=== PATIENT | female | born 1940 | race Caucasian/White ===

== ENCOUNTER 2017-04-28 13:00 | Inpatient (IN) | payer OTHER ==
[2017-04-28] MEDS ORDERED: SODIUM CHLORIDE 500 ML IV STA (14:05)
--- NOTE | 2017-04-28 14:07 | PDOC ---
History of Present Illness - General History Source: Patient Exam Limitations: No Limitations - History of Present Illness Initial Comments: 04/28/17 14:19 The patient is a 76 year old female, with a significant past medical history of Depression, DM, HTN, HLD, Arthritis who presents to the emergency department with increased LE edema for the past 2 weeks. As per daughter, patient was recently admitted at [facility] for psych evaluation of depression. Since her discharge, the patient reports progressively worsening LE edema. Last night, the patient reported sudden onset of R lower back pain, non radiating, with associated SOB. Patient states her lower back pain is exacerbated upon deep inspiration. The patient reports family history of kidney disease. She denies chest pain, headache or dizziness. She denies fever, chills, abdominal pain, nausea, vomit, diarrhea or constipation. She denies dysuria, frequency, urgency or hematuria. Allergies: NKA Past surgical history: Cholecystectomy and C section Social history: Former smoker (20 years ago) PCP: Dr. Spicer <Sherri Wilson - Last Filed: 04/28/17 14:19> <Matteo Manzanares - Last Filed: 04/28/17 16:26> - General Chief Complaint: Edema Stated Complaint: SWELLING ON ANKLES, BACK PAIN Time Seen by Provider: 04/28/17 13:50 Past History <Sherri Wilson - Last Filed: 04/28/17 14:19> - Past Medical History Diabetes: Yes HTN: Yes Hypercholesterolemia: Yes Other medical history: arthritis - Surgical History Cholecystectomy: Yes - Psycho/Social/Smoking Cessation Hx Anxiety: No Suicidal Ideation: No Smoking History: Former smoker Have you smoked in the past 12 months: No Information on smoking cessation initiated: No Hx Alcohol Use: No Drug/Substance Use Hx: No Substance Use Type: None <Matteo Manzanares - Last Filed: 04/28/17 16:26> - Past Medical History Allergies/Adverse Reactions: Allergies Allergy/AdvReac Type Severity Reaction Status Date / Time No Known Allergies Allergy Verified 04/28/17 13:03 Home Medications: Ambulatory Orders Metoprolol Succinate [Toprol Xl -] 25 mg PO DAILY 04/28/17 Review of Systems - Review of Systems Able to Perform ROS?: Yes Comments:: 04/28/17 14:19 GENERAL/CONSTITUTIONAL: No fever or chills. No weakness. HEAD, EYES, EARS, NOSE AND THROAT: No change in vision. No ear pain or discharge. No sore throat. CARDIOVASCULAR: No chest pain or shortness of breath. RESPIRATORY: No cough, wheezing, or hemoptysis. GASTROINTESTINAL: No nausea, vomiting, diarrhea or constipation. GENITOURINARY: No dysuria, frequency, or change in urination. MUSCULOSKELETAL: No joint or muscle swelling or pain. No neck or back pain. SKIN: No rash NEUROLOGIC: No headache, vertigo, loss of consciousness, or change in strength/ sensation. ENDOCRINE: No increased thirst. No abnormal weight change. HEMATOLOGIC/LYMPHATIC: No anemia, easy bleeding, or history of blood clots. ALLERGIC/IMMUNOLOGIC: No hives or skin allergy. EXTREMITIES: +bilateral LE edema. <Sherri Wilson - Last Filed: 04/28/17 14:19> *Physical Exam - Vital Signs Last Vital Signs Temp Pulse Resp BP Pulse Ox 98.5 F 92 H 18 144/85 100 04/28/17 13:03 04/28/17 13:03 04/28/17 13:03 04/28/17 13:03 04/28/17 13:03 - Physical Exam Comments: 04/28/17 14:20 GENERAL: Awake, alert, and fully oriented, in no acute distress HEAD: No signs of trauma EYES: PERRLA, EOMI, sclera anicteric, conjunctiva clear ENT: Auricles normal inspection, hearing grossly normal, nares patent, oropharynx clear without exudates. Moist mucosa NECK: Normal ROM, supple, no lymphadenopathy, JVD, or masses LUNGS: Breath sounds equal, clear to auscultation bilaterally. No wheezes, and no crackles HEART: Regular rate and rhythm, normal S1 and S2, no murmurs, rubs or gallops ABDOMEN: +R CVA tenderness. Soft, nontender, normoactive bowel sounds. No guarding, no rebound. No masses EXTREMITIES: +1 bilateral pitting edema. Normal range of motion. No clubbing or cyanosis. No cords, erythema, or tenderness.NEUROLOGICAL: Cranial nerves II through XII grossly intact. Normal speech, normal gait SKIN: Warm, Dry, normal turgor, no rashes or lesions noted. <Sherri Wilson - Last Filed: 04/28/17 14:19> - Vital Signs Last Vital Signs Temp Pulse Resp BP Pulse Ox 98.5 F 92 H 18 144/85 100 04/28/17 13:03 04/28/17 13:03 04/28/17 13:03 04/28/17 13:03 04/28/17 13:03 <GlennaMatteo - Last Filed: 04/28/17 16:26> ED Treatment Course - LABORATORY CBC & Chemistry Diagram: 04/28/17 14:08 04/28/17 14:08 - RADIOLOGY Radiology Studies Ordered: Category Date Time Status SPIRAL- RENAL-STONE CT [CT] Stat CT Scan 04/28/17 14:05 Ordered CHEST X-RAY PORTABLE* [RAD] Stat Radiology 04/28/17 14:05 Ordered <Matteo Manzanares - Last Filed: 04/28/17 16:26> Medical Decision Making - Medical Decision Making 04/28/17 14:30 A portion of this note was documented by scribe services under my direction. I have reviewed the details of the note, within reason, and agree with the documentation with the following case summary and management plan written by me. Patient treated in the ED. Nursing notes are reviewed and incorporated into the medical decision-making. Vital signs reviewed. Peripheral IV access obtained by the nurse, laboratory studies are drawn and sent, reviewed and interpreted by myself. Vital Signs Temp Pulse Resp BP Pulse Ox 98.5 F 92 H 18 144/85 100 04/28/17 13:03 04/28/17 13:03 04/28/17 13:03 04/28/17 13:03 04/28/17 13:03 76-year-old female with past medical history of hypertension, diabetes, hyperlipidemia, arthritis, depression presents with increasing lower extremity edema for 2 weeks and now with right flank pain. Patient was recently discharged from [facility] for psychiatric admission for depression. Since that she's been having increasing lower extremity edema. First-time episode. Denies shortness of breath. However, patient reports that recently the last day, she's been complaining about some right flank pain. Denies dysuria, urinary frequency or vomiting. Denies fevers. Patient did report prior that she had protein in the urine was concerning for acute kidney injury. Came to the ED for further evaluation. We'll rule out acute renal injury, hypoalbuminemia, CHF. Patient does have right flank pain, will rule out pyelonephritis, kidney stone. We'll obtain a CAT scan, labs, chest x-ray, urinalysis,and reassess. 04/28/17 16:25 Pt appears confused here in the ED. Pt's daughter reports that this has been lately over the last two weeks, she has become increasingly confused. CBC, BMP 04/28/17 14:08 04/28/17 14:08 CMP Sodium 139 mmol/L (136-145) 04/28/17 14:08 Potassium 4.1 mmol/L (3.5-5.1) 04/28/17 14:08 Chloride 105 mmol/L (98-107) 04/28/17 14:08 Carbon Dioxide 25 mmol/L (21-32) 04/28/17 14:08 Anion Gap 9 (8-16) 04/28/17 14:08 BUN 17 mg/dL (7-18) 04/28/17 14:08 Creatinine 1.0 mg/dL (0.55-1.02) 04/28/17 14:08 Creat Clearance w eGFR 54.05 (>60) 04/28/17 14:08 Random Glucose 216 mg/dL (74-106) H 04/28/17 14:08 Calcium 8.7 mg/dL (8.5-10.1) 04/28/17 14:08 Total Bilirubin 0.3 mg/dL (0.2-1.0) 04/28/17 14:08 AST 19 U/L (15-37) 04/28/17 14:08 ALT 31 U/L (12-78) 04/28/17 14:08 Alkaline Phosphatase 102 U/L (45-117) 04/28/17 14:08 Creatine Kinase 176 IU/L (26-192) 04/28/17 14:08 Creatine Kinase Index 0.5 % (0.0-5.0) 04/28/17 14:08 CK-MB (CK-2) < 1.000 ng/mL (0.5-3.6) 04/28/17 14:08 Troponin I < 0.02 ng/ml (0.00-0.05) 04/28/17 14:08 B-Natriuretic Peptide 234.34 pg/ml (5-450) 04/28/17 14:08 Total Protein 6.9 g/dl (6.4-8.2) 04/28/17 14:08 Albumin 3.4 g/dl (3.4-5.0) 04/28/17 14:08 Urine Test Results Urine Color Straw 04/28/17 14:08 Urine Appearance Clear 04/28/17 14:08 Urine pH 6.0 (5.0-8.0) 04/28/17 14:08 Urine Protein Negative (NEGATIVE) 04/28/17 14:08 Urine Glucose (UA) Negative (NEGATIVE) 04/28/17 14:08 Urine Ketones Negative (NEGATIVE) 04/28/17 14:08 Urine Blood Negative (NEGATIVE) 04/28/17 14:08 Urine Nitrite Negative (NEGATIVE) 04/28/17 14:08 Urine Bilirubin Negative (NEGATIVE) 04/28/17 14:08 Ur Leukocyte Esterase 3+ (NEGATIVE) H 04/28/17 14:08 Urine RBC None /hpf (0-3) 04/28/17 14:08 Urine WBC 11 /hpf (3-5) 04/28/17 14:08 Ur Epithelial Cells Rare /hpf (FEW) 04/28/17 14:08 Urine Mucus Rare 04/28/17 14:08 Labs reviewed. Will treat as pylenephritis. Rocephin ordered. CT results pending. Given AMS and pyelo, case discussed with Dr. Finn, who accepts the patient to med/surg admission. Case discussed in detail with admitting physician including history, physical exam and ancillary studies. Admitting physician has assumed care for the patient, will follow all pending diagnostics and will complete the evaluation and treatment. <Matteo Manzanares - Last Filed: 04/28/17 16:26> *DC/Admit/Observation/Transfer - Attestations Scribe Attestion: 04/28/17 14:20 Documentation prepared by Sherri Wilson, acting as caregivers non medical for Matteo Manzanares MD <Sherri Wilson - Last Filed: 04/28/17 14:19> - Discharge Dispostion Admit: Yes <Matteo Manzanares - Last Filed: 04/28/17 16:26> Diagnosis at time of Disposition: Pyelonephritis, Confusion - Discharge Dispostion Condition at time of disposition: Stable - Referrals Referrals: Nigel Spicer MD [Primary Care Provider] -
[2017-04-28 15:01] LABS: BASOPHIL 0.4 % (0-2.0); EOSINOPHIL 1.6 % (0-4.5); MCH 28.7 pg (25.7-33.7); MCHC 33.8 g/dl (32.0-36.0); MEAN PLT VOLUME 7.9 fl (7.5-11.1); NEUTROPHILS 69.3 % (42.8-82.8); PLATELET COUNT 363 K/MM3 (134-434); RDW 13.7 % (11.6-15.6); WHITE BLOOD COUNT 8.6 K/mm3 (4.0-10.0)
[2017-04-28 15:02] LABS: URINE APPEARANCE CLEAR; URINE BILIRUBIN NEGATIVE (NEGATIVE); URINE BLOOD NEGATIVE (NEGATIVE); URINE COLOR STRAW; URINE GLUCOSE (UA) NEGATIVE (NEGATIVE); URINE KETONE NEGATIVE (NEGATIVE); URINE LEUK ESTERASE 3+ (NEGATIVE); URINE NITRITE NEGATIVE (NEGATIVE); URINE PROTEIN NEGATIVE (NEGATIVE); URINE UROBILINOGEN NEGATIVE mg/dL (0.2-1.0)
[2017-04-28 15:04] LABS: URINE MUCUS RARE; URINE WBC 11 /hpf (3-5)
[2017-04-28 15:20] LABS: ALBUMIN 3.4 g/dl (3.4-5.0); ANION GAP 9 (8-16); CALCIUM 8.7 mg/dL (8.5-10.1); CO2 25 mmol/L (21-32); GLUCOSE,RANDOM 216 mg/dL (74-106); SGOT/AST 19 U/L (15-37); SGPT/ALT 31 U/L (12-78)
[2017-04-28 15:24] LABS: ALK PHOS 102 U/L (45-117); BILIRUBIN,TOTAL 0.3 mg/dL (0.2-1.0); CPK 176 IU/L (26-192); TOT PROT 6.9 g/dl (6.4-8.2); TROPONIN I < 0.02 ng/ml (0.00-0.05)
[2017-04-28] MEDS ORDERED: CEFTRIAXONE 1 GM in DEXTROSE 5%-WATER - 50 ML IVPB ONE (15:59)
[2017-04-28] MEDS ORDERED: CEFTRIAXONE 50 ML ONE (16:21)
[2017-04-28] MEDS ORDERED: ACETAMINOPHEN 325 MG TABLET (FP) PO PRN (16:22)
[2017-04-28 17:22] LABS: FERRITIN 128.989 ng/ml (6.9-282.5); THYROID STIMULATING HORMONE 2.34 uIU/ml (0.358-3.74)
[2017-04-28] MEDS: HEPARIN NA (PORCINE) 5,000 UNITS/ML 1ML VIAL SQ SCH (21:28)
[2017-04-28 21:45] VITALS: BMI 22.8
[2017-04-29 07:40] LABS: BASOPHIL 0.6 % (0-2.0); EOSINOPHIL 2.3 % (0-4.5); MCH 29.2 pg (25.7-33.7); MEAN CELL VOLUME 83.3 fl (80-96); MEAN PLT VOLUME 7.8 fl (7.5-11.1); NEUTROPHILS 59.6 % (42.8-82.8); PLATELET COUNT 311 K/MM3 (134-434); RDW 13.4 % (11.6-15.6); WHITE BLOOD COUNT 6.8 K/mm3 (4.0-10.0)
[2017-04-29 08:09] LABS: ALBUMIN 2.7 g/dl (3.4-5.0); ANION GAP 10 (8-16); CALCIUM 8.2 mg/dL (8.5-10.1); CO2 23 mmol/L (21-32); CREATININE 0.7 mg/dL (0.55-1.02); GLUCOSE,RANDOM 134 mg/dL (74-106); SGOT/AST 14 U/L (15-37); SGPT/ALT 22 U/L (12-78)
[2017-04-29 08:12] LABS: ALK PHOS 72 U/L (45-117); BILIRUBIN,TOTAL 0.7 mg/dL (0.2-1.0); TOT PROT 5.7 g/dl (6.4-8.2)
--- NOTE | 2017-04-29 09:19 | HP ---
Admitting History and Physical - Admission History of Present Illness: The patient is a 76 year old female, with a significant past medical history of Depression, DM, HTN, HLD, Arthritis who presents to the emergency department with increased LE edema for the past 2 weeks. As per daughter, patient was recently admitted at [facility] for psych evaluation of depression. Since her discharge, the patient reports progressively worsening LE edema. Last night, the patient reported sudden onset of R lower back pain, non radiating, with associated SOB. Patient states her lower back pain is exacerbated upon deep inspiration. The patient reports family history of kidney disease. She denies chest pain, headache or dizziness. She denies fever, chills, abdominal pain, nausea, vomit, diarrhea or constipation. She denies dysuria, frequency, urgency or hematuria. THIS AM PT IN BED-- - Past Medical History Cardiovascular: Yes: HTN, Hyperlipdemia Psych: Yes: Depression Endocrine: Yes: Diabetes Mellitus - Smoking History Smoking history: Former smoker Have you smoked in the past 12 months: No - Alcohol/Substance Use Hx Alcohol Use: No Home Medications - Allergies Allergies/Adverse Reactions: Allergies Allergy/AdvReac Type Severity Reaction Status Date / Time No Known Allergies Allergy Verified 04/28/17 13:03 - Home Medications Home Medications: Ambulatory Orders Atorvastatin Ca [Lipitor] 40 mg PO HS 04/28/17 Enalapril Maleate [Vasotec] 10 mg PO DAILY 04/28/17 Insulin (Novolog 70/30) [Novolog Mix 70/30 Flexpen -] 10 units SQ BID 04/28/17 Metformin HCl [Glucophage] 1,000 mg PO BID 04/28/17 Metoprolol Succinate [Toprol Xl -] 25 mg PO DAILY 04/28/17 Review of Systems - Review of Systems Constitutional: reports: Weakness. denies: Fever Cardiovascular: reports: Edema Genitourinary: reports: Flank Pain Neurological: reports: Weakness Physical Examination Vital Signs: Vital Signs Temperature 99.6 F 04/29/17 06:00 Pulse Rate 72 04/29/17 06:00 Respiratory Rate 16 04/29/17 06:00 Blood Pressure 131/81 04/29/17 06:00 O2 Sat by Pulse Oximetry (%) 95 04/28/17 21:48 Cardiovascular: Yes: Regular Rate and Rhythm Respiratory: Yes: Regular, CTA Bilaterally Gastrointestinal: Yes: Normal Bowel Sounds, Soft Renal/: No: CVA Tenderness - Left, CVA Tenderness - Right Neurological: Yes: Alert, Other (not cooperative with exam) Labs: CBC, BMP 04/29/17 06:00 04/29/17 06:00 Imaging - Results Cat Scan: Report Reviewed Problem List - Problems (1) Confusion Assessment/Plan: CT OF HEAD NEGATIVE NEURO PSYCH GET OLD RECORDS Code(s): R41.0 - DISORIENTATION, UNSPECIFIED (2) Pyelonephritis Assessment/Plan: IV ABX CULTURES ID CONSULT Code(s): N12 - TUBULO-INTERSTITIAL NEPHRITIS, NOT SPCF ACUTE OR CHRONIC (3) UTI (urinary tract infection) Assessment/Plan: IV ABX CULTURES ID CONSULT Code(s): N39.0 - URINARY TRACT INFECTION, SITE NOT SPECIFIED (4) Diabetes Assessment/Plan: BGM Code(s): E11.9 - TYPE 2 DIABETES MELLITUS WITHOUT COMPLICATIONS
[2017-04-29] MEDS: HEPARIN NA (PORCINE) 5,000 UNITS/ML 1ML VIAL SQ SCH ×2 (09:48→21:28)
[2017-04-29] MEDS: METOPROLOL SUCCINATE 25 MG TAB.SR.24H (FP) PO SCH (09:49)
[2017-04-29] MEDS: PANTOPRAZOLE 40 MG TABLET (FP) PO SCH (09:49)
[2017-04-29] MEDS ORDERED: CEFTRIAXONE 50 ML IVPB SCH (10:00)
[2017-04-29] MEDS ORDERED: cefTRIAXone SODIUM 1 GM VIAL ONE (10:50)
[2017-04-29] MEDS ORDERED: DEXTROSE 5%-WATER - 50 ML IVPB ONE (10:50)
[2017-04-29] MEDS: CEFTRIAXONE 1 GM in DEXTROSE 5%-WATER - 50 ML IVPB SCH (10:57)
--- NOTE | 2017-04-29 13:32 | EKG ---
Test Reason : Blood Pressure : / mmHG Vent. Rate : 081 BPM Atrial Rate : 081 BPM P-R Int : 160 ms QRS Dur : 114 ms QT Int : 372 ms P-R-T Axes : 013 -22 011 degrees QTc Int : 432 ms NORMAL SINUS RHYTHM INCOMPLETE RIGHT BUNDLE BRANCH BLOCK MINIMAL VOLTAGE CRITERIA FOR LVH, MAY BE NORMAL VARIANT BORDERLINE ECG NO PREVIOUS ECGS AVAILABLE Confirmed by FANTASMA QUEZADA MD ([id number]) on 04/29/2017 1:32:09 PM Referred By: Confirmed By:FANTASMA QUEZADA MD
--- NOTE | 2017-04-29 14:08 | CONSULT ---
Consult - text type - Consultation Consultation Note: NEUROLOGY CONSULTATION is greatly appreciated: This 76 yo RH s woman lives in an assisted setting ([facility]) with daughter nearby. PMH of HTN, DM, Chol and recent Dx of depression. Maintained on metoprolol, metformin, enalapril, Insulin, and Atorvastatin. Recently admitted to [facility] for "nervousness" according to her daughter. Was told she had a UTI and received antibiotics, However, after discharge was more confused and [place]. Now c/o Low back pain. Wanders the halls here Labs sig for 11 urinary WBC. TSH=2.23; N10=489; RPR is neg. ROSA: No bruits. Cor: reg NEURO: MS awake, alert. [facility] but not [facility]. No month, no year. Not Sunday. Claims she lives ion [place]. Recall 1 of 3 @ 3 mins Speech fluent in Luxembourgish. Glabella and snout + CN II-XII: Normal Motor: No drift, tremor or cogwheeling. Normal strength, bulk and tone. Normal reflexes. Toes downgoing. Coord: NO FTN Dystaxia Sensory: Normal. Romberg neg Gait: Normal IMP: Non-focal exam sig for Moderate, B/L cerebral dysfunction c/w Alzheimer's Disease. SUGGEST: CT of brain (C-) Complete Rx for UTI Begin Donepezil 5 mg PO after breakfast. conference services manager to assess the Level of care at her current residence. Neurology f/u as out Patient to monitor and increase the dose of donepezil and to start mementine when appropriate. Thank you very much, Jose Curtis MD
--- NOTE | 2017-04-29 15:18 | CON.PSY ---
Psychiatry Consult Chief Complaint: I am happy, I am not depressed. Symptoms: reports: Memory Impairment - Previous Psychiatric Treatment Outpatient: None Inpatient: None - Previous Substance Abuse Treatment Outpatient: None Inpatient: None - Current Medications Current Medications: Active Medications Acetaminophen (Tylenol -) 650 mg PO Q4H PRN PRN Reason: FEVER OR PAIN Heparin Sodium (Porcine) (Heparin -) 5,000 unit SQ BID [facility] Last Admin: 04/29/17 09:48 Dose: Not Given Ceftriaxone Sodium 1 gm/ (Dextrose) 50 mls @ 100 mls/hr IVPB DAILY [facility] Last Admin: 04/29/17 10:57 Dose: 100 mls/hr Metoprolol Succinate (Toprol Xl -) 25 mg PO DAILY [facility] Last Admin: 04/29/17 09:49 Dose: 25 mg Pantoprazole Sodium (Protonix -) 40 mg PO DAILY [facility] Last Admin: 04/29/17 09:49 Dose: 40 mg - Allergies Allergies: Allergies Allergy/AdvReac Type Severity Reaction Status Date / Time No Known Allergies Allergy Verified 04/28/17 13:03 - Current Living Status Usual Living Arrangement: With Child - Current Mental Status Evaluation Appearance: Well Groomed Attitude: Cooperative - Affect Affect: Constrictive Appropriateness: Appropriate to Content - Mood Mood: Euthymic - Speech/Language Expressive: Coherent - Psychomotor Activity Psychomotor Activity: Normal - Thought Process Thought Process: Intact - Thought Content Hallucinations: Absent Delusions: Absent - Self Perception Self Perception: No Impairment - Cognition Attention: Alert Orientation: Time Memory, Short Term: 2/3 Memory, Remote with Promptin/3 - Concentration Serial Sevens Intact: No Simple Calculations Intact: No - Abstraction Proverb Interpretation: Intact Judgement: Intact - Suicidal Ideation Suicidal Ideation: No - Homicidal Ideation Homicidal Ideation: No Assessment/Plan No psych meds for DEpression.
--- NOTE | 2017-04-29 15:45 | PN ---
Progress Note (short form) - Note Progress Note: ID Consult dictated R nephrolithiasis UTI/ Possible pyelonephritis Await c/s Continue ceftriaxone evaluation
[2017-04-29] MEDS ORDERED: INSULIN (NOVOLOG) ASPART 100 UNITS/ML 10ML VIAL ONE (21:37)
[2017-04-29] MEDS: INSULIN SLIDING SCALE (NOVOLOG) 1 VIAL SQ SCH (21:39)
[2017-04-30] MEDS: INSULIN SLIDING SCALE (NOVOLOG) 1 VIAL SQ SCH ×3 (06:04→18:11)
[2017-04-30 06:06] LABS: SERUM IRON 20 ug/dL (27-139); TOTAL IRON BINDING CAPACITY 273 ug/dL (250-450); UIBC 253 ug/dL (118-369)
[2017-04-30 08:26] LABS: BASOPHIL 0.6 % (0-2.0); EOSINOPHIL 2.8 % (0-4.5); MCHC 34.5 g/dl (32.0-36.0); MEAN CELL VOLUME 84.1 fl (80-96); MEAN PLT VOLUME 8.3 fl (7.5-11.1); NEUTROPHILS 55.8 % (42.8-82.8); PLATELET COUNT 385 K/MM3 (134-434); RDW 13.7 % (11.6-15.6); WHITE BLOOD COUNT 8.1 K/mm3 (4.0-10.0)
[2017-04-30 08:54] LABS: ALBUMIN 3.4 g/dl (3.4-5.0); ANION GAP 9 (8-16); BILIRUBIN,TOTAL 0.5 mg/dL (0.2-1.0); CALCIUM 8.9 mg/dL (8.5-10.1); CO2 24 mmol/L (21-32); CREATININE 0.8 mg/dL (0.55-1.02); GLUCOSE,RANDOM 150 mg/dL (74-106); SGOT/AST 18 U/L (15-37); SGPT/ALT 28 U/L (12-78); TOT PROT 7.2 g/dl (6.4-8.2)
[2017-04-30 08:55] LABS: ALK PHOS 88 U/L (45-117)
--- NOTE | 2017-04-30 10:19 | CONS ---
DATE OF CONSULTATION: DATE OF DICTATION: 04/29/2017 This 76-year-old female evaluated for possible pyelonephritis. The patient presented to the hospital with complaints of right-sided back pain and dyspnea. CAT scan of the abdomen and pelvis performed shows a 5 mm partially obstructing calculus in the distal right ureter. She denies any dysuria or hematuria. No complaints of fever or chills. No prior history of nephrolithiasis or resisting urinary tract pathogens. PAST MEDICAL HISTORY: Positive for diabetes mellitus, hypertension, depression, hyperlipidemia, osteoarthritis. PAST SURGICAL HISTORY: Status post cholecystectomy and section. ALLERGIES: No known allergies. MEDICATIONS AT HOME: Toprol. SOCIAL HISTORY: Former smoker who lives at home with family. SYSTEMS REVIEW: Neurologic: No loss of consciousness, seizure activity, focal weakness. Cardiac: Negative chest pain or palpitations. Respiratory: Negative for cough or sputum production. Gastrointestinal: Negative vomiting or diarrhea. Genitourinary: As per HPI. LABORATORY DATA: White count 6.8, hematocrit 25.8, platelet count 311, BUN 11, creatinine 0.7. Urine analysis; 11 white cells. Blood and urine cultures pending. PHYSICAL EXAMINATION: General: She is awake and alert, ambulatory, in no acute distress. Vital Signs: Temperature 98.6, blood pressure 129/78, pulse 93 regular, respirations 18 per minute. Eyes: Sclerae anicteric. Heart: Heart sounds S1, S2. Lungs: Clear. Abdomen: Soft, no suprapubic or flank tenderness. Extremities: Negative for edema. IMPRESSION: 1. Right nephrolithiasis. 2. Urinary tract infection, possible pyelonephritis. 3. Diabetes mellitus. Await cultures. IV fluid hydration. Empiric ceftriaxone. Urology evaluation. CARLEY PAZ M.D. [id number]
[2017-04-30] MEDS ORDERED: DEXTROSE 5%-WATER - 50 ML IVPB ONE (10:25)
[2017-04-30] MEDS ORDERED: cefTRIAXone SODIUM 1 GM VIAL ONE (10:25)
[2017-04-30] MEDS: CEFTRIAXONE 1 GM in DEXTROSE 5%-WATER - 50 ML IVPB SCH (10:26)
[2017-04-30] MEDS: PANTOPRAZOLE 40 MG TABLET (FP) PO SCH (10:26)
[2017-04-30] MEDS: METOPROLOL SUCCINATE 25 MG TAB.SR.24H (FP) PO SCH (10:26)
[2017-04-30] MEDS: HEPARIN NA (PORCINE) 5,000 UNITS/ML 1ML VIAL SQ SCH (10:27)
--- NOTE | 2017-04-30 11:21 | PN ---
Physical Exam: SUBJECTIVE: Patient seen and examined. Patient states she feels much better than yesterday except for back and lower abdominal pain upon breathing. She denies dysuria, difficulty breathing, fever, nausea and vomiting. OBJECTIVE: Vital Signs Period Temp Pulse Resp BP Sys/Aldridge Pulse Ox Last 24 Hr 98.2 F-99.7 F 70-100 18-20 129-148/71-82 95 GENERAL: The patient is awake, alert, and fully oriented, in no acute distress. HEAD: Normal with no signs of trauma. EYES: sclera anicteric, conjunctiva clear. NECK: supple. LUNGS: Breath sounds equal, clear to auscultation bilaterally, no wheezes, no crackles, no accessory muscle use. HEART: Regular rate and rhythm, S1, S2 without murmur, rub or gallop. ABDOMEN: Soft, tender to palpation on lower quadrants, nondistended, normoactive bowel sounds, no guarding, no rebound, no hepatosplenomegaly, no masses. EXTREMITIES: 2+ pulses, warm, well-perfused, no edema. PSYCH: Normal mood, normal affect. Laboratory Results - last 24 hr 04/28/17 04/28/17 04/29/17 16:54 17:55 16:45 WBC RBC Hgb Hct MCV MCH MCHC RDW Plt Count MPV Neutrophils % Lymphocytes % Monocytes % Eosinophils % Basophils % Sodium Potassium Chloride Carbon Dioxide Anion Gap BUN Creatinine Creat Clearance w eGFR POC Glucometer 359 Random Glucose Calcium Iron 20 L TIBC 273 Iron Saturation 7 L Total Bilirubin AST ALT Alkaline Phosphatase Total Protein Albumin RPR Titer Nonreactive 04/29/17 04/30/17 04/30/17 21:32 05:20 07:45 WBC 8.1 RBC 3.57 L Hgb 10.4 L D Hct 30.0 L D MCV 84.1 MCH 29.0 MCHC 34.5 RDW 13.7 Plt Count 385 D MPV 8.3 Neutrophils % 55.8 Lymphocytes % 32.1 Monocytes % 8.7 Eosinophils % 2.8 Basophils % 0.6 Sodium Potassium Chloride Carbon Dioxide Anion Gap BUN Creatinine Creat Clearance w eGFR POC Glucometer 361 122 Random Glucose Calcium Iron TIBC Iron Saturation Total Bilirubin AST ALT Alkaline Phosphatase Total Protein Albumin RPR Titer 04/30/17 07:45 WBC RBC Hgb Hct MCV MCH MCHC RDW Plt Count MPV Neutrophils % Lymphocytes % Monocytes % Eosinophils % Basophils % Sodium 139 Potassium 4.0 Chloride 106 Carbon Dioxide 24 Anion Gap 9 BUN 9 Creatinine 0.8 Creat Clearance w eGFR > 60 POC Glucometer Random Glucose 150 H Calcium 8.9 Iron TIBC Iron Saturation Total Bilirubin 0.5 D AST 18 D ALT 28 D Alkaline Phosphatase 88 D Total Protein 7.2 D Albumin 3.4 D RPR Titer Active Medications Generic Name Dose Route Start Last Admin Trade Name Freq PRN Reason Stop Dose Admin Acetaminophen 650 mg 04/28/17 16:22 04/29/17 21:33 Tylenol - PO 650 mg Q4H PRN Administration FEVER OR PAIN Heparin Sodium (Porcine) 5,000 unit 04/28/17 22:00 04/30/17 10:27 Heparin - SQ Not Given BID CURT Ceftriaxone Sodium 1 gm/ 50 mls @ 100 mls/hr 04/29/17 10:15 04/30/17 10:26 Dextrose IVPB 100 mls/hr DAILY [facility]T Administration Insulin Aspart 1 vial 04/29/17 22:00 04/30/17 06:04 Novolog Vial Sliding Scale - SQ Not Given ACHS [facility] Protocol Metoprolol Succinate 25 mg 04/29/17 10:00 04/30/17 10:26 Toprol Xl - PO 25 mg DAILY [facility] Administration Pantoprazole Sodium 40 mg 04/29/17 10:00 04/30/17 10:26 Protonix - PO 40 mg DAILY [facility]T Administration The patient is a 76 year old female, with a significant past medical history of Depression, DM, HTN, HLD, Arthritis who presents to the emergency department with increased LE edema ASSESSMENT/PLAN: 1) Partially obstructing right nephrolithiasis - Urology evaluation -Stop IV antibiotic and observe Visit type - Emergency Visit Emergency Visit: No - New Patient This patient is new to me today: Yes Date on this admission: 04/30/17 - Critical Care Critical Care patient: No
--- NOTE | 2017-04-30 12:01 | PN ---
Teaching Attending Note Name of Resident: Justa Anguiano ATTENDING PHYSICIAN STATEMENT I saw and evaluated the patient. I reviewed the resident's note and discussed the case with the resident. I agree with the resident's findings and plan as documented. SUBJECTIVE:Vague complaints mostly back pain NO fever and does not look acutely ill On Ceftriaxone Afebrile OBJECTIVE:NO CVAT ASSESSMENT AND PLAN:Partially obstructing kidney stone minimal symptoms at present Plan Urology evaluation Stop IV antibiotic Observe off antibiotics Tessie IBARRA
--- NOTE | 2017-04-30 16:48 | DS ---
Physical Examination Vital Signs: Vital Signs Temperature 99.6 F 04/30/17 15:28 Pulse Rate 101 H 04/30/17 15:28 Respiratory Rate 20 04/30/17 09:01 Blood Pressure 140/87 04/30/17 15:28 O2 Sat by Pulse Oximetry (%) 95 04/30/17 09:00 Findings/Remarks: AWAKE CONFUSED, CHART REVIEWED, BASELINE DEMENTIA Constitutional: Yes: No Distress Eyes: Yes: WNL HENT: Yes: WNL Neck: Yes: WNL Cardiovascular: Yes: WNL Respiratory: Yes: WNL Gastrointestinal: Yes: WNL Renal/: Yes: WNL Musculoskeletal: Yes: WNL Extremities: Yes: WNL Edema: No Peripheral Pulses WNL: Yes Integumentary: Yes: WNL Wound/Incision: Yes: Clean/Dry Neurological: Yes: Pre-Existing Deficit ...Motor Strength: LLE, RLE Psychiatric: Yes: Other Labs: CBC, BMP 04/30/17 07:45 04/30/17 07:45 Discharge Summary Reason For Visit: CONFUSION,PYELONEPHRITIS Current Active Problems Confusion (Acute) Diabetes (Acute) Pyelonephritis (Acute) UTI (urinary tract infection) (Acute) Procedures: Principal: CT SCAN Other Procedures: LABS AND CULTURES Hospital Course: ADMITTED FOR IV ABX, HO DEMENTIA, TREATED AND WILL NEED UROLOGY FOR EVAL OF NEPHROLITHIASIS TOMORROW OUTPATIENT Condition: Stable - Instructions Diet, Activity, Other Instructions: SEE DR CONCEPCION OUTPATIENT TOMORROW LOW SODIUM Referrals: Nigel Spicer MD [Staff Physician] - Disposition: VNS/HOME HEALTH CARE - Home Medications Comprehensive Discharge Medication List: Ambulatory Orders Atorvastatin Ca [Lipitor] 40 mg PO HS 04/28/17 Enalapril Maleate [Vasotec] 10 mg PO DAILY 04/28/17 Insulin (Novolog 70/30) [Novolog Mix 70/30 Flexpen -] 10 units SQ BID 04/28/17 Metformin HCl [Glucophage] 1,000 mg PO BID 04/28/17 Metoprolol Succinate [Toprol Xl -] 25 mg PO DAILY 04/28/17 Olanzapine [Zyprexa -] 10 mg PO HS 04/30/17 Prilosec 20 mg PO DAILY PRN 04/30/17
[2017-05-01 01:19] VITALS: BP 130/78; PULSE 88; TEMP 98
== END 2017-04-30 23:45 | disposition home health service (06) | DRG 694 ==
LOC: JER 13:00 → JERBED 16:26 → J6S 20:37
PROVIDERS: ADMIT Family Medicine; ATTEND Family Medicine
DX: N20.2 Calculus of kidney with calculus of ureter (principal); N10 Acute pyelonephritis; E11.9 Type 2 diabetes mellitus without complications; I10 Essential (primary) hypertension; E78.5 Hyperlipidemia, unspecified; M19.90 Unspecified osteoarthritis, unspecified site; R41.0 Disorientation, unspecified; M54.9 Dorsalgia, unspecified
CPT/HCPCS: 36415; 71010-TC; 74176; 80053; 81003; 81015; 82553; 82607; 82728; 83540; 83550; 83880; 84443; 84484; 85025; 86593; 87040; 87086; 93005; 93010; 93970-TC; 97116-GP; 97161-GP; 99284-25

== ENCOUNTER 2017-05-04 06:28 | Emergency (ER) | payer OTHER ==
[2017-05-04 06:41] VITALS: BMI 24.5
[2017-05-04 06:59] LABS: BASOPHIL 0.6 % (0-2.0); EOSINOPHIL 0.6 % (0-4.5); MCHC 34.9 g/dl (32.0-36.0); MEAN PLT VOLUME 7.7 fl (7.5-11.1); NEUTROPHILS 64.7 % (42.8-82.8); PLATELET COUNT 380 K/MM3 (134-434); RDW 13.4 % (11.6-15.6); WHITE BLOOD COUNT 8.3 K/mm3 (4.0-10.0)
[2017-05-04 07:29] LABS: ALBUMIN 2.7 g/dl (3.4-5.0); ANION GAP 9 (8-16); BILIRUBIN,TOTAL 0.4 mg/dL (0.2-1.0); CALCIUM 8.4 mg/dL (8.5-10.1); CO2 24 mmol/L (21-32); CREATININE 0.9 mg/dL (0.55-1.02); SGOT/AST 21 U/L (15-37); SGPT/ALT 30 U/L (12-78); TOT PROT 6.5 g/dl (6.4-8.2)
[2017-05-04 07:30] LABS: ALK PHOS 84 U/L (45-117)
[2017-05-04 07:39] LABS: GLUCOSE,RANDOM 303 mg/dL (74-106)
--- NOTE | 2017-05-04 08:09 | PDOC ---
Attending Attestation - Resident Resident Name: Sourav Lomeli - ED Attending Attestation I have performed the following: I have examined & evaluated the patient, The case was reviewed & discussed with the resident, I agree w/resident's findings & plan <Delano Delgado - Last Filed: 05/04/17 09:35> - Resident Resident Name: Souarv Lomeli - ED Attending Attestation I have performed the following: I have examined & evaluated the patient, The case was reviewed & discussed with the resident, I agree w/resident's findings & plan, Exceptions are as noted - HPI HPI: 05/04/17 08:06 76 y.o. Female with hx dementia, IDDM, HTN, HL, s/p recent admission for kidney stone and pyelonephritis p/w neck pain since this morning. Pt reports associated ear pain bilaterally, worsened when she turns her neck. Pt admits she cleans her ears frequently. Pt reports associated ear pain when she turns her neck. As a results patient admits to calling EMS for ear pain. As per daughter, who was contacted by phone , pt has been increasingly confused and with decreased appetite since she was discharged from the hospital on 04/30/17. Pt reports she lives at home with daughter and is able to take care of herself. She denies any changes in hearing , fever, chills, cough, headache, or dizziness. She denies any abdominal pain, nausea, vomiting, diarrhea, or constipation. She denies any dysuria, hematuria , frequency, or urgency. She denies any chest pain, shortness of breath, diarrhea, or constipation. Pt is poor historian due to hx of dementia. Allergies: NKDA Social History: Pt lives at home with family. PCP: Dr. Spicer GENERAL/CONSTITUTIONAL: No fever or chills. No weakness. HEAD, EYES, EARS, NOSE AND THROAT: Yes: +bilateral ear discomfort, +neck pain. No change in vision. No ear discharge. No sore throat. CARDIOVASCULAR: No chest pain or shortness of breath. RESPIRATORY: No cough, wheezing, or hemoptysis. GASTROINTESTINAL: No nausea, vomiting, diarrhea or constipation. GENITOURINARY: No dysuria, frequency, or change in urination. MUSCULOSKELETAL: No joint or muscle swelling or pain. No neck or back pain. SKIN: No rash NEUROLOGIC: No headache, vertigo, loss of consciousness, or change in strength/ sensation. ENDOCRINE: No increased thirst. No abnormal weight change. HEMATOLOGIC/LYMPHATIC: No anemia, easy bleeding, or history of blood clots. ALLERGIC/IMMUNOLOGIC: No hives or skin allergy. - Physicial Exam PE: 05/04/17 09:24 GENERAL: Awake, alert, ambulating in the ED, pleasant in no acute distress. AOx2 to name and place, does not know year HEAD: No signs of trauma EYES: PERRLA, EOMI, sclera anicteric, conjunctiva clear ENT: Auricles normal inspection with mild cerumen impaction hearing grossly normal, TMs normal in appearance with good light reflex, no perforation. nares patent, oropharynx clear without exudates. Moist mucosa NECK: Normal ROM, supple, no lymphadenopathy, JVD, or masses LUNGS: Breath sounds equal, clear to auscultation bilaterally. No wheezes, and no crackles HEART: Regular rate and rhythm, normal S1 and S2, no murmurs, rubs or gallops ABDOMEN: Soft, nontender, normoactive bowel sounds. No guarding, no rebound. No masses EXTREMITIES: Normal range of motion, no edema. No clubbing or cyanosis. No cords, erythema, or tenderness NEUROLOGICAL: Normal speech, cranial nerves intact, negative pronator drift, 5/ 5 strength in all 4 extremities, normal sensation to light touch in all 4 extremities, normal cerebellar exam, normal gait, normal reflexes and tone SKIN: Warm, Dry, normal turgor, no rashes or lesions noted. - Medical Decision Making 05/04/17 09:31 76-year-old female history of dementia, recent admission for pyelo now resolved presents with bilateral ear pain. Exam unremarkable. On discussion with the daughter she reveals that home health aide services have not been initiated for the patient yet and she feels overwhelmed with the patient at home. -labs -EKG -UA -casework manager -discuss plan with patient and daughter (who will be here at 12) -dispo 05/04/17 11:49 Patient wandering around the emergency Department and refusing to sit down. Twice the patient was visualized by me and staff trying to leave the emergency department. I have placed her on one-to-one observation. The casework manager is actively looking into home services for the patient. Her workup thus far medically is negative. 05/04/17 14:47 Labs thus far are unremarkable. We spoke with Dr. Spicer who reports that he recommended a residential for the patient however the daughter refused. Marifer , our casework manager, is currently working on arranging for home care for the patient. Daughter has arrived in the emergency department and reports that she called 911 this morning because she has been under a lot of stress and her daughter recently had surgery and she become overwhelmed taking care of her mother as well. We arranged for Marifer to talk with the pt's daughter and offer her the resources to help arrange some home care for her mom in order to better be able to take care of her. The patient reports that medically the patient feels well and hasn't had any medical complaints but has been a handful to take care of secondary to her dementia. The patient's daughter feels satisfied with the resources offered to her by Marifer and requests that we discharge the patient home with her. She feels comfortable taking care of the patient at home. Pt currently has no complaints, has been ambulating with steady gait in the ED. Tolerating PO. Pt is stable for DC home. <Nancy Harry - Last Filed: 05/04/17 15:01>
--- NOTE | 2017-05-04 08:14 | PDOC ---
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 Pt initially stated that her head was bothering her, then changed that to b/l ear pain, and finally to L neck pain. Pt was uncooperative with answering most questions, walking out of the room during the history. She denies dizziness, hearing loss, fevers, chills, SOB, chest pain, n/v/d/c, abdominal pain, and dysuria. Pt was recently hospitalized for R nephrolithiasis with possible pyelonephritis , given ceftriaxone and d/c'd on 04/30. 05/04/17 08:19 Past History - Past Medical History Allergies/Adverse Reactions: Allergies Allergy/AdvReac Type Severity Reaction Status Date / Time No Known Allergies Allergy Verified 05/04/17 06:39 Home Medications: Ambulatory Orders Atorvastatin Ca [Lipitor] 40 mg PO HS 04/28/17 Enalapril Maleate [Vasotec] 10 mg PO DAILY 04/28/17 Insulin (Novolog 70/30) [Novolog Mix 70/30 Flexpen -] 10 units SQ BID 04/28/17 Metformin HCl [Glucophage] 1,000 mg PO BID 04/28/17 Acetaminophen [Tylenol .Regular Strength -] 650 mg PO Q4H PRN #0 tablet Metoprolol Succinate [Toprol XL -] 25 mg PO DAILY #30 tab 04/30/17 Olanzapine [Zyprexa -] 10 mg PO HS 04/30/17 Prilosec 20 mg PO DAILY PRN 04/30/17 Diabetes: Yes HTN: Yes Hypercholesterolemia: Yes Comment:: 05/04/17 08:14 PMH: depresson, arthritis PSH: , cholecystectomy Allergies: NKDA Social Hx: former smoker - Surgical History Cholecystectomy: Yes - Psycho/Social/Smoking Cessation Hx Anxiety: No Suicidal Ideation: No Smoking History: Unknown if ever smoked Have you smoked in the past 12 months: No Information on smoking cessation initiated: No Hx Alcohol Use: No Drug/Substance Use Hx: No Substance Use Type: None Hx Substance Use Treatment: No Review of Systems - Review of Systems Able to Perform ROS?: No (AMS) *Physical Exam - Vital Signs Last Vital Signs Temp Pulse Resp BP Pulse Ox 97.2 F L 99 H 18 161/80 93 L 05/04/17 06:39 05/04/17 06:39 05/04/17 06:39 05/04/17 06:39 05/04/17 06:39 - Physical Exam Comments: 05/04/17 08:15 GENERAL: Awake, AAOx1 (name), walking around HEAD: normocephalic, atraumatic HEENT: PERRLA, sclera anicteric, conjunctiva clear, nares patent, oropharynx clear without exudate, moist mucosa NECK: Normal ROM, supple, no lymphadenopathy, JVD, or masses HEART: tachycardic, regular rhythm, normal S1 and S2, no murmurs, rubs or gallops, peripheral pulses normal and equal bilaterally. LUNGS: CTAB, no wheezing, no rales ABDOMEN: Soft, nontender, nondistended, normoactive bowel sounds. No guarding, no rebound. No masses EXTREMITIES: Normal range of motion, 1+ pitting edema. SKIN: Warm, dry, no rashes or lesions noted. NEUROLOGICAL: Cranial nerves difficult to assess due to pt's mental status. normal gait, ED Treatment Course - LABORATORY CBC & Chemistry Diagram: 05/04/17 06:46 05/04/17 06:46 - ADDITIONAL ORDERS Additional order review: Laboratory Results 05/04/17 06:46 Sodium 136 Potassium 4.0 Chloride 103 Carbon Dioxide 24 Anion Gap 9 BUN 15 D Creatinine 0.9 Creat Clearance w eGFR > 60 Random Glucose 303 H* D Calcium 8.4 L Total Bilirubin 0.4 AST 21 ALT 30 Alkaline Phosphatase 84 Total Protein 6.5 Albumin 2.7 L D - RADIOLOGY Radiology Studies Ordered: Category Date Time Status CXRPORT [CHEST X-RAY PORTABLE*] [RAD] Stat Radiology 05/04/17 07:44 Ordered Medical Decision Making - Medical Decision Making 05/04/17 08:19 76F w/ hx of dementia, IDDM, HTN, and HLD s/p recent hospitalization for nephrolithiasis and pyelonephritis presenting with neck pain. History difficult to obtain due to AMS, exam notable for tachycardia. Differential includes unresolved nephrolithiasis, UTI, cardiac etiology. Pt has refused EKG, CXR, and UA. CBC: Hgb of 9 CMP: low albumin Spoke to Dr. Spicer who stated that given the history, physical, and labs, this doesn't meet criteria for a medical admission. Instead, this is a social issue. Met with pt's daughter, and explained the whole situation. The high risk case manager ( Marifer Galicia) was involved and spoke to daughter as well. Ms. Galicia facilitated setting up visiting nursing services, and pt's daughter was made aware. The pt's daughter understood the situation, was ok with it, and left with patient shortly afterwards because she had to drive her daughter somewhere. 05/04/17 14:09 05/04/17 14:10 05/04/17 14:30 *DC/Admit/Observation/Transfer Diagnosis at time of Disposition: Neck pain - Discharge Dispostion Disposition: HOME Condition at time of disposition: Stable Admit: No - Attestations Physician Attestion: 05/04/17 15:02 I, Dr. Sourav Lomeli, attest that this document has been prepared under my direction and personally reviewed by me in its entirety. I further attest, that it accurately reflects all work, treatment, procedures and medical decision -making performed by me.
[2017-05-04 08:16] VITALS: BP 153/85; PULSE 92; TEMP 98.4
[2017-05-04 08:19] LABS: INR 1.17 (0.82-1.09); PROTHROMBIN TIME (PATIENT) 12.9 SEC (9.98-11.88)
[2017-05-04 08:51] LABS: CPK 114 IU/L (26-192)
[2017-05-04 08:52] LABS: TROPONIN I < 0.02 ng/ml (0.00-0.05)
[2017-05-04] MEDS ORDERED: INSULIN REGULAR HUMAN 100 UNITS/ML *VIAL IVPUSH ONE (09:47)
== END 2017-05-04 14:48 | disposition home or self-care (01) ==
LOC: JER 06:28
PROC: 3E033VG Introduction of Insulin into Peripheral Vein, Percutaneous Approach (ICD-10-PCS; principal; 2017-05-04)
DX: M54.2 Cervicalgia (principal); E11.9 Type 2 diabetes mellitus without complications; I10 Essential (primary) hypertension; E78.5 Hyperlipidemia, unspecified; F03.90 Unspecified dementia, unspecified severity, without behavioral disturbance, psychotic disturbance, mood disturbance, and anxiety; Z79.4 Long term (current) use of insulin; Z79.84 Long term (current) use of oral hypoglycemic drugs
CPT/HCPCS: 36415; 80053; 84484; 85025; 85610; 96374; 99282-25

== ENCOUNTER 2019-09-07 01:07 | Inpatient (IN) | payer OTHER ==
[2019-09-07] MEDS ORDERED: SODIUM CHLORIDE 0.9% 500 ML INFUS.BAG IV ONE (01:35)
[2019-09-07 02:19] LABS: EOS % 1.1 % (0-4.5); HEMATOCRIT 38.1 % (32.4-45.2); HEMOGLOBIN 12.8 GM/dL (10.7-15.3); LYMPH % 18.3 % (8-40); MCH 28.3 pg (25.7-33.7); MCHC 33.5 g/dl (32.0-36.0); MEAN CELL VOLUME 84.3 fl (80-96); MEAN PLT VOLUME 9.2 fl (7.5-11.1); MONO % 6.2 % (3.8-10.2); NEUT % 73.4 % (42.8-82.8); PLATELET COUNT 355 K/MM3 (134-434); RBC 4.52 M/mm3 (3.60-5.2); RDW 14.4 % (11.6-15.6); WHITE BLOOD COUNT 10.7 K/mm3 (4.0-10.0)
[2019-09-07 02:35] LABS: INR 0.91 (0.83-1.09); PROTHROMBIN TIME (PATIENT) 10.7 SEC (9.7-13.0)
[2019-09-07 02:40] LABS: ALBUMIN 3.7 g/dl (3.4-5.0); BILIRUBIN,TOTAL 0.2 mg/dL (0.2-1); BLOOD UREA NITROGEN 30.1 mg/dL (7-18); CALCIUM 9.2 mg/dL (8.5-10.1); CREATININE 1.2 mg/dL (0.55-1.3); POTASSIUM 4.4 mmol/L (3.5-5.1); TOT PROT 7.6 g/dl (6.4-8.2)
[2019-09-07] MEDS ORDERED: LORazepam 2 MG/ML SDV VIAL ONE ×2 (02:46→04:04)
[2019-09-07 05:47] LABS: EPI CELLS 0.5 /HPF (0-5/HPF); HYALINE CASTS 2 /lpf (0-8); PH,URINE 6.5 (5.0-8.0); URINE APPEARANCE CLEAR; URINE BACTERIA 0.5 /hpf (NEGATIVE); URINE BILIRUBIN NEGATIVE (NEGATIVE); URINE COLOR YELLOW; URINE GLUCOSE (UA) NEGATIVE (NEGATIVE); URINE KETONE NEGATIVE (NEGATIVE); URINE LEUK ESTERASE NEGATIVE (NEGATIVE); URINE NITRITE NEGATIVE (NEGATIVE); URINE PROTEIN 3+ (NEGATIVE); URINE RBC 0 /hpf (0-4); URINE UROBILINOGEN 0.2 mg/dL (0.2-1.0); URINE WBC 0 /hpf (0-5)
--- NOTE | 2019-09-07 05:58 | PDOC ---
Documentation entered by Tila Montilla SCRIBE, acting as scribe for Martha Baird MD. Martha Baird MD: This documentation has been prepared by the Eladia palomares Xhesika, SCRIBE, under my direction and personally reviewed by me in its entirety. I confirm that the documentation accurately reflects all work, treatment, procedures, and medical decision making performed by me. History of Present Illness - General Chief Complaint: Altered Mental Status Stated Complaint: EDP Time Seen by Provider: 09/07/19 01:33 History Source: Patient, Family Exam Limitations: No Limitations, Other - History of Present Illness Initial Comments: 09/07/19 01:43 The patient is a 79 year old female with a significant past medical history of depression, dementia, Alzheimer's, IDDM, hypertension, hyperlipidemia and arthritis who presents to the ED BIBA for AMS. EMS reports daughter called the ambulance. Patient is not able to contribute to history due to her clinical condition. Pt has a swollen hand and forearm with bruising and when asked about it, patient points to hand and starts crying. Allergies: NKA Past History - Past Medical History Allergies/Adverse Reactions: Allergies Allergy/AdvReac Type Severity Reaction Status Date / Time No Known Allergies Allergy Verified 09/07/19 01:09 Home Medications: Ambulatory Orders Atorvastatin Ca [Lipitor] 40 mg PO HS 04/28/17 Insulin (Novolog 70/30) [Novolog Mix 70/30 Flexpen -] 10 units SQ BID 04/28/17 Donepezil HCl [Aricept] 10 mg PO DAILY 12/17/17 Amlodipine Besylate 10 mg PO DAILY 09/07/19 Levothyroxine [Synthroid -] 50 mcg PO DAILY 09/07/19 Memantine HCl 10 mg PO BID 09/07/19 Metoprolol Succinate [Toprol XL -] 50 mg PO DAILY 09/07/19 Mirtazapine 30 mg PO HS 09/07/19 COPD: No Diabetes: Yes HTN: Yes Hypercholesterolemia: Yes - Surgical History Cholecystectomy: Yes - Immunization History Immunization Up to Date: Yes - Psycho Social/Smoking Cessation Hx Smoking History: Unknown if ever smoked Have you smoked in the past 12 months: No Information on smoking cessation initiated: No Hx Alcohol Use: No Drug/Substance Use Hx: No Substance Use Type: None Hx Substance Use Treatment: No Review of Systems - Review of Systems Able to Perform ROS?: No (unable to obtain ) *Physical Exam - Vital Signs Last Vital Signs Temp Pulse Resp BP Pulse Ox 99.3 F 96 H 20 153/83 94 L 09/07/19 01:09 09/07/19 01:09 09/07/19 01:09 09/07/19 01:09 09/07/19 01:09 - Physical Exam 09/07/19 01:44 GENERAL: aao x1 HEAD: No signs of trauma EYES: PERRLA, EOMI, sclera anicteric, conjunctiva clear ENT: Auricles normal inspection, hearing grossly normal, nares patent, oropharynx clear without exudates. Moist mucosa LUNGS: Breath sounds equal, clear to auscultation bilaterally. No wheezes, and no crackles HEART: Regular rate and rhythm, normal S1 and S2, no murmurs, rubs or gallops ABDOMEN: Soft, nontender, normoactive bowel sounds. No guarding, no rebound. No masses EXTREMITIES: +R swollen hand and forearm with bruising. moving all extremities, no edema. No clubbing or cyanosis. No cords, erythema, or tenderness SKIN: Warm, Dry, normal turgor, no rashes or lesions noted. ED Treatment Course - LABORATORY CBC & Chemistry Diagram: 09/07/19 02:02 09/07/19 02:02 - RADIOLOGY Radiology Studies Ordered: Category Date Time Status HEAD CT WITHOUT CONTRAST [CT] Stat CT Scan 09/07/19 01:32 Ordered FOREARM- RIGHT [RAD] Stat Radiology 09/07/19 01:34 Ordered HAND- RIGHT [RAD] Stat Radiology 09/07/19 01:34 Ordered Medical Decision Making - Medical Decision Making 09/07/19 01:50 Pt comes with worsening aggression in alzheimers. Last night she was throwng herself on the bathroom floor and she injured her right hand. Pt has been having anger outbursts 09/07/19 03:29 Labs normal UA pending 09/07/19 06:00 UA is normal 09/08/19 05:26 Pt signed out to the day team. They will follow her head CT and CXR Discharge - Discharge Information Problems reviewed: Yes Clinical Impression/Diagnosis: Delirium Condition: Fair - Follow up/Referral - Patient Discharge Instructions - Post Discharge Activity
--- NOTE | 2019-09-07 07:17 | PDOC ---
*Physical Exam - Vital Signs Last Vital Signs Temp Pulse Resp BP Pulse Ox 99 F 99 H 18 138/85 97 09/07/19 06:28 09/07/19 06:28 09/07/19 06:28 09/07/19 06:28 09/07/19 06:28 - Physical Exam 09/07/19 07:27 Gen: awake, confused heent: eomi, mmm heart: +s1s2 reg lungs: cta abd: soft, nt/nd +bs ext: moving all extremities ED Treatment Course - LABORATORY CBC & Chemistry Diagram: 09/07/19 02:02 09/07/19 02:02 - ADDITIONAL ORDERS Additional order review: Laboratory Results 09/07/19 09/07/19 09/07/19 05:15 02:02 02:02 PT with INR 10.70 INR 0.91 Sodium Potassium Chloride Carbon Dioxide Anion Gap BUN Creatinine Est GFR (CKD-EPI)AfAm Est GFR (CKD-EPI)NonAf Random Glucose Lactic Acid Calcium Total Bilirubin AST ALT Alkaline Phosphatase Total Protein Albumin TSH 2.55 Urine Color Yellow Urine Appearance Clear Urine pH 6.5 Ur Specific Dixon 1.018 Urine Protein 3+ H Urine Glucose (UA) Negative Urine Ketones Negative Urine Blood Negative Urine Nitrite Negative Urine Bilirubin Negative Urine Urobilinogen 0.2 Ur Leukocyte Esterase Negative Urine WBC (Auto) 0 Urine RBC (Auto) 0 Urine Casts (Auto) 2 U Epithel Cells (Auto) 0.5 Urine Bacteria (Auto) 0.5 09/07/19 09/07/19 02:02 02:02 PT with INR INR Sodium 142 Potassium 4.4 Chloride 106 Carbon Dioxide 27 Anion Gap 8 BUN 30.1 H Creatinine 1.2 Est GFR (CKD-EPI)AfAm 50.13 Est GFR (CKD-EPI)NonAf 43.25 Random Glucose 190 H Lactic Acid 1.4 Calcium 9.2 Total Bilirubin 0.2 AST 33 ALT 40 Alkaline Phosphatase 186 H Total Protein 7.6 Albumin 3.7 TSH Urine Color Urine Appearance Urine pH Ur Specific Dixon Urine Protein Urine Glucose (UA) Urine Ketones Urine Blood Urine Nitrite Urine Bilirubin Urine Urobilinogen Ur Leukocyte Esterase Urine WBC (Auto) Urine RBC (Auto) Urine Casts (Auto) U Epithel Cells (Auto) Urine Bacteria (Auto) 09/07/19 02:02 RBC 4.52 MCV 84.3 MCHC 33.5 RDW 14.4 MPV 9.2 D Neutrophils % 73.4 Lymphocytes % 18.3 Monocytes % 6.2 Eosinophils % 1.1 D Basophils % 1.0 - Medications Given in the ED: ED Medications Discontinued Medications Generic Name Dose Route Start Last Admin Trade Name Karla PRN Reason Stop Dose Admin Diphenhydramine HCl 50 mg 09/07/19 02:33 09/07/19 03:02 Benadryl Injection - IVPB 09/07/19 02:34 50 mg ONCE ONE Administration Lorazepam 2 mg 09/07/19 02:33 09/07/19 03:02 Ativan Injection - IVPUSH 09/07/19 02:34 2 mg ONCE ONE Administration Lorazepam 2 mg 09/07/19 03:57 09/07/19 04:10 Ativan Injection - IVPUSH 09/07/19 03:58 2 mg ONCE ONE Administration Sodium Chloride 1,000 ml 09/07/19 01:35 09/07/19 02:22 Normal Saline - IV 09/07/19 01:36 1,000 ml ONCE ONE Administration Medical Decision Making - Medical Decision Making 09/07/19 07:16 a/p: 79yo female with hx of dementia with altered ms -labs reviewed pt signed out pending imaging and re-eval cxr clear- poor inspiration pt with delirium-waxing and waning mental status 09/07/19 07:27 pt agitated, moving all over the stretcher pt requiring hina for safety pt pending head ct, pt unwilling to lay flat or still, will need haldol EKG: sinus at 86, RBBB, lvh, no acute st/t wave findings, qtc 454 09/07/19 09:[address] without acute findings 09/07/19 09:06 hand xray without acute findings, pending official read 09/07/19 09:[address] Madden for admission, pmd dr. goetz 09/07/19 09:52 2nd call placed to Dr. Madden service for admission 09/07/19 10:24 pt resting comfortably, no longer agitated awake and asking for breakfast 09/07/19 10:37 3rd call placed to Dr. MADDEN 09/07/19 11:12 case discussed with EXCHANGE ADMINISTRATOR Mike Iglesias who accepts pt to service Discharge - Discharge Information Problems reviewed: Yes Clinical Impression/Diagnosis: Delirium Condition: Fair - Admission Yes - Follow up/Referral Referrals: Prasanth Goetz [Primary Care Provider] - - Patient Discharge Instructions - Post Discharge Activity
[2019-09-07] MEDS ORDERED: HALOPERIDOL LACTATE 5 MG/ML IM ONE (07:26)
[2019-09-07] MEDS ORDERED: HALOPERIDOL LACTATE 5 MG/ML ONE (07:31)
--- NOTE | 2019-09-07 11:26 | HP ---
Admitting History and Physical - Primary Care Physician PCP: Ngiel Spicer - Admission Chief Complaint: AMS History of Present Illness: The patient is a 79 year old female with a significant past medical history of depression, dementia, Alzheimer's, IDDM, hypertension, hyperlipidemia and arthritis who presents to the ED BIBA for AMS. EMS reports daughter called the ambulance. Patient is not able to contribute to history due to her clinical condition. Pt has a swollen hand and forearm with bruising and when asked about it, patient points to hand and starts crying. History Source: Medical Record Limitations to Obtaining History: No Limitations - Past Medical History Cardiovascular: Yes: HTN, Hyperlipdemia Psych: Yes: Depression Endocrine: Yes: Diabetes Mellitus - Smoking History Smoking history: Unknown if ever smoked Have you smoked in the past 12 months: No - Alcohol/Substance Use Hx Alcohol Use: No Home Medications - Allergies Allergies/Adverse Reactions: Allergies Allergy/AdvReac Type Severity Reaction Status Date / Time No Known Allergies Allergy Verified 09/07/19 01:09 - Home Medications Home Medications: Ambulatory Orders Atorvastatin Ca [Lipitor] 40 mg PO HS 04/28/17 Insulin (Novolog 70/30) [Novolog Mix 70/30 Flexpen -] 10 units SQ BID 04/28/17 Donepezil HCl [Aricept] 10 mg PO DAILY 12/17/17 Amlodipine Besylate 10 mg PO DAILY 09/07/19 Levothyroxine [Synthroid -] 50 mcg PO DAILY 09/07/19 Memantine HCl 10 mg PO BID 09/07/19 Metoprolol Succinate [Toprol XL -] 50 mg PO DAILY 09/07/19 Mirtazapine 30 mg PO HS 09/07/19 Review of Systems Unable to obtain ROS, reason: 2/2 to Dementia Physical Examination Vital Signs: Vital Signs Temperature 99 F 09/07/19 06:28 Pulse Rate 99 H 09/07/19 06:28 Respiratory Rate 18 09/07/19 06:28 Blood Pressure 138/85 09/07/19 06:28 O2 Sat by Pulse Oximetry (%) 97 09/07/19 06:28 Constitutional: Yes: Well Nourished, No Distress, Anxious Cardiovascular: Yes: Regular Rate and Rhythm Respiratory: Yes: Regular Gastrointestinal: Yes: Normal Bowel Sounds, Soft Musculoskeletal: Yes: Muscle Weakness Extremities: Yes: WNL Edema: No Peripheral Pulses WNL: Yes Neurological: Yes: Alert Psychiatric: Yes: Agitated Labs: CBC, BMP 09/07/19 02:02 09/07/19 02:02 Problem List - Problems (1) AMS (altered mental status) Assessment/Plan: -Neurology on board -Psych on board -started on Olanzapine -Haldol discontinued -Head CT scan shows no acute intracranial pathology Problems reviewed: Yes Code(s): R41.82 - ALTERED MENTAL STATUS, UNSPECIFIED (2) Agitation Assessment/Plan: -Zoar vest -On olanzapine -Psych on board Problems reviewed: Yes Code(s): R45.1 - RESTLESSNESS AND AGITATION (3) Dementia Problems reviewed: Yes Code(s): F03.90 - UNSPECIFIED DEMENTIA WITHOUT BEHAVIORAL DISTURBANCE (4) HTN (hypertension) Assessment/Plan: -Continue home meds -monitor trend Problems reviewed: Yes Code(s): I10 - ESSENTIAL (PRIMARY) HYPERTENSION (5) Leukocytosis Problems reviewed: Yes Code(s): D72.829 - ELEVATED WHITE BLOOD CELL COUNT, UNSPECIFIED Assessment/Plan See problem list
--- NOTE | 2019-09-07 16:34 | CON.NEURO ---
Consult - Past Medical History Cardio/Vascular: Yes: HTN, Hyperlipdemia Psych: Yes: Depression Endocrine: Yes: Diabetes Mellitus - Alcohol/Substance Use Hx Alcohol Use: No - Smoking History Smoking history: Unknown if ever smoked Have you smoked in the past 12 months: No - Social History Usual Living Arrangement: With Child Home Medications - Allergies Allergies/Adverse Reactions: Allergies Allergy/AdvReac Type Severity Reaction Status Date / Time No Known Allergies Allergy Verified 09/07/19 01:09 - Home Medications Home Medications: Ambulatory Orders Atorvastatin Ca [Lipitor] 40 mg PO HS 04/28/17 Insulin (Novolog 70/30) [Novolog Mix 70/30 Flexpen -] 10 units SQ BID 04/28/17 Donepezil HCl [Aricept] 10 mg PO DAILY 12/17/17 Amlodipine Besylate 10 mg PO DAILY 09/07/19 Levothyroxine [Synthroid -] 50 mcg PO DAILY 09/07/19 Memantine HCl 10 mg PO BID 09/07/19 Metoprolol Succinate [Toprol XL -] 50 mg PO DAILY 09/07/19 Mirtazapine 30 mg PO HS 09/07/19 Physical Exam-Neuro Vital Signs: Vital Signs Temperature 99 F 09/07/19 06:28 Pulse Rate 94 H 09/07/19 12:24 Respiratory Rate 18 09/07/19 12:24 Blood Pressure 144/78 09/07/19 12:24 O2 Sat by Pulse Oximetry (%) 95 09/07/19 12:24 Labs: CBC, BMP 09/07/19 02:02 09/07/19 02:02 INR, PTT INR 0.91 (0.83-1.09) 09/07/19 02:02 Assessment/Plan cc Agitation and confusion HPI 79 year old female history of Depression, dementia, IDDM,HTN,HLD. Patient was brought to hospital for hospital for agitation and confusion. She was not able to give any history, she was given ativan and pateint is sleepy druing interview. Patient came by ambulance, There is no fever, trauma, cancer .There is no difficulty of weakness, tingling and numbness. She has ct head is unremarkable. PMH as above. Allergies/Adverse Reactions: Allergies Allergy/AdvReac Type Severity Reaction Status Date / Time No Known Allergies Allergy Verified 09/07/19 01:09 Home Medications: Atorvastatin Ca [Lipitor] 40 mg PO HS 04/28/17 Insulin (Novolog 70/30) [Novolog Mix 70/30 Flexpen -] 10 units SQ BID 04/28/17 Donepezil HCl [Aricept] 10 mg PO DAILY 12/17/17 Amlodipine Besylate 10 mg PO DAILY 09/07/19 Levothyroxine [Synthroid -] 50 mcg PO DAILY 09/07/19 Memantine HCl 10 mg PO BID 09/07/19 Metoprolol Succinate [Toprol XL -] 50 mg PO DAILY 09/07/19 Mirtazapine 30 mg PO HS 09/07/19 ROS,FH,SH reviewed in chart Neurological examination Alert oriented x 1, able to talk and confused, no agitation and she is sleepy due to ativan given in ed no twitching or facial droop noticed eomi, pupils reactive no neck stiffness moving all ext ct head unremarkable Assessment/Plan 79 year old female history of Depression, dementia, IDDM,HTN, HLD. Patient was brought to hospital for hospital for agitation and confusion. Most likley delirium secondary metabolic encephalopahty unlikely to be seizure, status epilepticus, meningitis or stroke Plan . No need for mri of brain, eeg or spinal tap - continue supportive care, and given haldol .5 mg iv tid prn - avoid constipation, hydrate - continue aricpet and namenda - continue supportive care Thanking you so much Jacqui Oliva MD
--- NOTE | 2019-09-07 17:52 | EKG ---
Test Reason : Blood Pressure : / mmHG Vent. Rate : 086 BPM Atrial Rate : 086 BPM P-R Int : 162 ms QRS Dur : 126 ms QT Int : 380 ms P-R-T Axes : 033 -27 -22 degrees QTc Int : 454 ms NORMAL SINUS RHYTHM RIGHT BUNDLE BRANCH BLOCK VOLTAGE CRITERIA FOR LEFT VENTRICULAR HYPERTROPHY ABNORMAL ECG WHEN COMPARED WITH ECG OF 17-DEC-2017 17:56, NO SIGNIFICANT CHANGE WAS FOUND Confirmed by BENOIT LIVE MD ([id number]) on 09/07/2019 5:52:11 PM Referred By: Confirmed By:BENOIT LIVE MD
[2019-09-07] MEDS: MIRTAZAPINE 30 MG TABLET (FP) PO SCH ×2 (21:43→23:06)
[2019-09-07] MEDS: ATORVASTATIN CA 40 MG TABLET (FP) PO SCH ×2 (21:44→23:05)
[2019-09-07] MEDS: MEMANTINE HCL 10 MG TABLET (FP) PO SCH ×2 (21:44→23:05)
[2019-09-07] MEDS: DONEPEZIL HCL 10 MG TABLET (FP) PO SCH ×2 (21:44→23:05)
[2019-09-07] MEDS ORDERED: HALOPERIDOL LACTATE 5 MG/ML IM PRN (22:14)
[2019-09-08] MEDS: HALOPERIDOL LACTATE 5 MG/ML IM SCH ×2 (00:28→06:27)
[2019-09-08] MEDS: LEVOTHYROXINE NA 50 MCG TABLET (FP) PO SCH (06:27)
[2019-09-08 07:47] LABS: BASO % 0.5 % (0-2.0); EOS % 0.2 % (0-4.5); HEMATOCRIT 37.5 % (32.4-45.2); HEMOGLOBIN 12.5 GM/dL (10.7-15.3); LYMPH % 18.7 % (8-40); MCH 28.2 pg (25.7-33.7); MCHC 33.3 g/dl (32.0-36.0); MEAN CELL VOLUME 84.5 fl (80-96); MEAN PLT VOLUME 9.4 fl (7.5-11.1); MONO % 5.5 % (3.8-10.2); NEUT % 75.1 % (42.8-82.8); PLATELET COUNT 327 K/MM3 (134-434); RBC 4.44 M/mm3 (3.60-5.2); RDW 14.8 % (11.6-15.6); WHITE BLOOD COUNT 9.8 K/mm3 (4.0-10.0)
[2019-09-08] MEDS: amLODIPine BESYLATE 10 MG TABLET (FP) PO SCH (09:28)
[2019-09-08] MEDS: ENOXAPARIN NA (PORCINE) 40 MG/0.4 ML DISP.SYRIN SQ SCH (09:28)
[2019-09-08] MEDS: MEMANTINE HCL 10 MG TABLET (FP) PO SCH ×2 (09:28→21:58)
[2019-09-08] MEDS ORDERED: HALOPERIDOL 1 MG TABLET (FP) PO PRN (10:53)
--- NOTE | 2019-09-08 10:59 | PN ---
Progress Note, Physician Chief Complaint: AMS History of Present Illness: Previous notes and events reviewed awake and oriented x 1 NAD no leukocytosis UC neg - Current Medication List Current Medications: Active Medications Amlodipine Besylate (Norvasc -) 10 mg PO DAILY [facility] Last Admin: 09/08/19 09:28 Dose: 10 mg Atorvastatin Calcium (Lipitor -) 40 mg PO HS [facility] Last Admin: 09/07/19 23:05 Dose: Not Given Donepezil HCl (Aricept -) 10 mg PO [facility] Last Admin: 09/07/19 23:05 Dose: Not Given Enoxaparin Sodium (Lovenox -) 40 mg SQ DAILY [facility] Last Admin: 09/08/19 09:28 Dose: 40 mg Haloperidol (Haldol Injection (Fast Acting) -) 0.5 mg IM Q4H PRN PRN Reason: AGITATION Haloperidol (Haldol -) 0.5 mg PO TID PRN PRN Reason: AGITATION Levothyroxine Sodium (Synthroid -) 50 mcg PO DAILY@0700 [facility] Last Admin: 09/08/19 06:27 Dose: 50 mcg Memantine (Namenda -) 10 mg PO BID [facility] Last Admin: 09/08/19 09:28 Dose: 10 mg Metoprolol Succinate (Toprol Xl -) 50 mg PO DAILY [facility] Last Admin: 09/08/19 09:28 Dose: 50 mg Mirtazapine (Remeron -) 30 mg PO [facility] Last Admin: 09/07/19 23:06 Dose: Not Given - Objective Vital Signs: Vital Signs Temperature 97.5 F L 09/08/19 09:22 Pulse Rate 116 H 09/08/19 09:22 Respiratory Rate 20 09/08/19 09:22 Blood Pressure 158/87 09/08/19 09:22 O2 Sat by Pulse Oximetry (%) 95 09/07/19 21:00 Constitutional: Yes: No Distress, Calm Eyes: Yes: Conjunctiva Clear HENT: Yes: Atraumatic Cardiovascular: Yes: Regular Rate and Rhythm Respiratory: Yes: Regular, CTA Bilaterally Gastrointestinal: Yes: Normal Bowel Sounds, Soft Genitourinary: Yes: Incontinence Musculoskeletal: Yes: Muscle Weakness Extremities: Yes: WNL Edema: No Neurological: Yes: Alert, Confusion Psychiatric: Yes: Alert, Oriented (to self) Labs: CBC, BMP 09/08/19 07:00 09/07/19 02:02 INR, PTT INR 0.91 (0.83-1.09) 09/07/19 02:02 Microbiology 09/07/19 05:15 Urine - Urine Clean Catch Urine Culture - Final NO GROWTH OBTAINED Problem List - Problems (1) Delirium Assessment/Plan: -Neurology on board -Psych consult -Haldol prn -Head CT scan shows no acute intracranial pathology Code(s): R41.0 - DISORIENTATION, UNSPECIFIED (2) Confusion Assessment/Plan: -Neurology on board -Psych consult -Haldol prn -Head CT scan shows no acute intracranial pathology Code(s): R41.0 - DISORIENTATION, UNSPECIFIED (3) UTI (urinary tract infection) Assessment/Plan: -UA shows 3+ protein -UC neg -no leukocytosis -afebrile Code(s): N39.0 - URINARY TRACT INFECTION, SITE NOT SPECIFIED (4) HTN (hypertension) Assessment/Plan: -Amlodipine, Metoprolol -low Na diet Code(s): I10 - ESSENTIAL (PRIMARY) HYPERTENSION (5) HLD (hyperlipidemia) Assessment/Plan: -Atorvastatin Code(s): E78.5 - HYPERLIPIDEMIA, UNSPECIFIED (6) Hypothyroidism Assessment/Plan: -Levothyroxine Code(s): E03.9 - HYPOTHYROIDISM, UNSPECIFIED Assessment/Plan see problem list dvt ppx
[2019-09-08] MEDS ORDERED: HALOPERIDOL 0.5 MG TABLET PO PRN (11:24)
--- NOTE | 2019-09-08 12:19 | CON.PSY ---
Psychiatry Consult Chief Complaint: 79 [place] old female with DEmentia alz, depression seen for Psych eval for acute agitation. Symptoms: reports: Aggressivity, Impulsivity - Previous Psychiatric Treatment Outpatient: None Inpatient: None - Previous Substance Abuse Treatment Outpatient: None Inpatient: None - Current Medications Current Medications: Active Medications Amlodipine Besylate (Norvasc -) 10 mg PO DAILY [facility] Last Admin: 09/08/19 09:28 Dose: 10 mg Atorvastatin Calcium (Lipitor -) 40 mg PO HS [facility] Last Admin: 09/07/19 23:05 Dose: Not Given Donepezil HCl (Aricept -) 10 mg PO HS [facility] Last Admin: 09/07/19 23:05 Dose: Not Given Enoxaparin Sodium (Lovenox -) 40 mg SQ DAILY [facility] Last Admin: 09/08/19 09:28 Dose: 40 mg Levothyroxine Sodium (Synthroid -) 50 mcg PO DAILY@0700 [facility] Last Admin: 09/08/19 06:27 Dose: 50 mcg Memantine (Namenda -) 10 mg PO BID [facility] Last Admin: 09/08/19 09:28 Dose: 10 mg Metoprolol Succinate (Toprol Xl -) 50 mg PO DAILY [facility] Last Admin: 09/08/19 09:28 Dose: 50 mg Olanzapine (Zyprexa -) 5 mg PO BID [facility] - Allergies Allergies: Allergies Allergy/AdvReac Type Severity Reaction Status Date / Time No Known Allergies Allergy Verified 09/07/19 01:09 - Current Living Status Usual Living Arrangement: With Child - Current Mental Status Evaluation Appearance: Disheveled Attitude: Guarded - Affect Affect: Constrictive - Mood Mood: Irritable - Speech/Language Expressive: Delayed - Psychomotor Activity Psychomotor Activity: Hyperactive - Thought Process Thought Process: Circumstantial - Thought Content Hallucinations: Absent Delusions: Absent - Self Perception Self Perception: Depersonalization - Cognition Attention: Diminished Memory, Immediate Recall: Impaired Memory, Short Term: 1/3 Memory, Remote with Promptin/3 - Concentration Serial Sevens Intact: No Simple Calculations Intact: No - Abstraction Proverb Interpretation: Impaired Judgement: Moderately Impaired - Insight Insight: Impaired - Impulse Control Impulse Control: Moderately Impaired - Suicidal Ideation Suicidal Ideation: No - Homicidal Ideation Homicidal Ideation: No Assessment/Plan 1) d/c ativan, haldol. 2) Zyprexa 5mg po bid for aggressiove behaviour.
--- NOTE | 2019-09-08 14:38 | PN ---
Progress Note (short form) - Note Progress Note: 79 year old female history of Depression, dementia, IDDM,HTN,HLD. Patient was brought to hospital for hospital for agitation and confusion. She was not able to give any history, she was given ativan and pateint is sleepy druing interview. Patient came by ambulance, There is no fever, trauma, cancer .There is no difficulty of weakness, tingling and numbness. She has ct head is unremarkable. Psych consult appreciated, and no ativan or holdol. She was givenzyprxa. Spoke to nurse,her attention and orientation has been fluctuating. PMH as above. Neurological examination Alert oriented x 1, able to talk and confused, she seems to be comfortable no twitching or facial droop noticed eomi, pupils reactive no neck stiffness moving all ext ct head unremarkable Assessment/Plan 79 year old female history of Depression, dementia, IDDM,HTN, HLD. Patient was brought to hospital for hospital for agitation and confusion. delirium secondary to dementia Plan . No need for mri of brain, eeg or spinal tap - continue supportive care, - Psych consult appreciated, start zyprexa - avoid constipation, hydrate - continue aricpet and namenda - continue supportive care Thanking you so much Jacqui Oliva MD
[2019-09-08] MEDS: OLANZapine 5 MG TABLET PO SCH (21:58)
[2019-09-08] MEDS: ATORVASTATIN CA 40 MG TABLET (FP) PO SCH (21:58)
[2019-09-08] MEDS: DONEPEZIL HCL 10 MG TABLET (FP) PO SCH (21:58)
[2019-09-09] MEDS: LEVOTHYROXINE NA 50 MCG TABLET (FP) PO SCH (06:02)
[2019-09-09 08:26] LABS: ALBUMIN 3.5 g/dl (3.4-5.0); BILIRUBIN,TOTAL 0.4 mg/dL (0.2-1); BLOOD UREA NITROGEN 19.1 mg/dL (7-18); CALCIUM 9.5 mg/dL (8.5-10.1); POTASSIUM 4.2 mmol/L (3.5-5.1); TOT PROT 7.4 g/dl (6.4-8.2)
[2019-09-09 08:34] LABS: HEMATOCRIT 38.4 % (32.4-45.2); HEMOGLOBIN 12.8 GM/dL (10.7-15.3); MCH 28.1 pg (25.7-33.7); MCHC 33.3 g/dl (32.0-36.0); MEAN CELL VOLUME 84.2 fl (80-96); MEAN PLT VOLUME 9.6 fl (7.5-11.1); PLATELET COUNT 363 K/MM3 (134-434); RBC 4.56 M/mm3 (3.60-5.2); RDW 14.3 % (11.6-15.6); WHITE BLOOD COUNT 11.1 K/mm3 (4.0-10.0)
[2019-09-09] MEDS: ENOXAPARIN NA (PORCINE) 40 MG/0.4 ML DISP.SYRIN SQ SCH (09:09)
[2019-09-09] MEDS: amLODIPine BESYLATE 10 MG TABLET (FP) PO SCH (09:09)
[2019-09-09] MEDS: MEMANTINE HCL 10 MG TABLET (FP) PO SCH ×2 (09:09→21:20)
[2019-09-09] MEDS: OLANZapine 5 MG TABLET PO SCH ×2 (09:09→21:19)
--- NOTE | 2019-09-09 11:38 | PN ---
Progress Note, Physician Chief Complaint: AMS History of Present Illness: Previous notes and events reviewed awake and oriented x 1 NAD no events overnight no leukocytosis BGM show FS 600mg/dL, instructed RN to give Novolog 10U sq as per sliding scale and repeat BS to monitor for downtrend patient tachycardic-EKG ordered - Current Medication List Current Medications: Active Medications Amlodipine Besylate (Norvasc -) 10 mg PO DAILY [facility] Last Admin: 09/09/19 09:09 Dose: 10 mg Atorvastatin Calcium (Lipitor -) 40 mg PO HS [facility] Last Admin: 09/08/19 21:58 Dose: 40 mg Donepezil HCl (Aricept -) 10 mg PO HS [facility] Last Admin: 09/08/19 21:58 Dose: 10 mg Enoxaparin Sodium (Lovenox -) 40 mg SQ DAILY [facility] Last Admin: 09/09/19 09:09 Dose: 40 mg Insulin Aspart (Novolog Vial) 10 units SQ BIDAC [facility] Insulin Aspart (Novolog Vial Sliding Scale -) 1 vial SQ [facility]; Protocol Levothyroxine Sodium (Synthroid -) 50 mcg PO DAILY@0700 [facility] Last Admin: 09/09/19 06:02 Dose: 50 mcg Memantine (Namenda -) 10 mg PO BID [facility] Last Admin: 09/09/19 09:09 Dose: 10 mg Metoprolol Succinate (Toprol Xl -) 50 mg PO DAILY [facility] Last Admin: 09/09/19 09:09 Dose: 50 mg Olanzapine (Zyprexa -) 5 mg PO BID [facility] Last Admin: 09/09/19 09:09 Dose: 5 mg - Objective Vital Signs: Vital Signs Temperature 98.7 F 09/09/19 09:32 Pulse Rate 117 H 09/09/19 09:32 Respiratory Rate 20 09/09/19 09:32 Blood Pressure 137/88 09/09/19 09:32 O2 Sat by Pulse Oximetry (%) 95 09/08/19 21:00 Constitutional: Yes: No Distress, Calm Eyes: Yes: Conjunctiva Clear HENT: Yes: Atraumatic Cardiovascular: Yes: Regular Rate and Rhythm Respiratory: Yes: Regular, CTA Bilaterally Gastrointestinal: Yes: Normal Bowel Sounds, Soft Genitourinary: Yes: Incontinence Musculoskeletal: Yes: Muscle Weakness Extremities: Yes: WNL Edema: No Neurological: Yes: Alert, Oriented (to self), Confusion Psychiatric: Yes: Alert, Oriented Labs: CBC, BMP 09/09/19 06:50 09/09/19 06:50 INR, PTT INR 0.91 (0.83-1.09) 09/07/19 02:02 Microbiology 09/07/19 05:15 Urine - Urine Clean Catch Urine Culture - Final NO GROWTH OBTAINED Problem List - Problems (1) Delirium Assessment/Plan: -Neurology on board -Psych on board -started on Olanzapine -Haldol discontinued -Head CT scan shows no acute intracranial pathology Code(s): R41.0 - DISORIENTATION, UNSPECIFIED (2) Confusion Assessment/Plan: -Neurology on board -Psych on board -Haldol discontinued -Head CT scan shows no acute intracranial pathology Code(s): R41.0 - DISORIENTATION, UNSPECIFIED (3) UTI (urinary tract infection) Assessment/Plan: -UA shows 3+ protein -UC neg -leukocytosis -afebrile Code(s): N39.0 - URINARY TRACT INFECTION, SITE NOT SPECIFIED (4) HTN (hypertension) Assessment/Plan: -Amlodipine, Metoprolol -low Na diet Code(s): I10 - ESSENTIAL (PRIMARY) HYPERTENSION (5) HLD (hyperlipidemia) Assessment/Plan: -Atorvastatin Code(s): E78.5 - HYPERLIPIDEMIA, UNSPECIFIED (6) Hypothyroidism Assessment/Plan: -Levothyroxine Code(s): E03.9 - HYPOTHYROIDISM, UNSPECIFIED (7) Diabetes Assessment/Plan: -BGM ACHS -HgA1c -ISS -Endocrinology consult Code(s): E11.9 - TYPE 2 DIABETES MELLITUS WITHOUT COMPLICATIONS (8) Leukocytosis Assessment/Plan: -WBC 11.1 -UC neg -ID consult -BC ordered Code(s): D72.829 - ELEVATED WHITE BLOOD CELL COUNT, UNSPECIFIED (9) Tachycardia Assessment/Plan: -EKG stat -Cardiology consult Code(s): R00.0 - TACHYCARDIA, UNSPECIFIED Assessment/Plan see problem list dvt ppx
[2019-09-09] MEDS: INSULIN SLIDING SCALE (NOVOLOG) 1 VIAL SQ SCH ×3 (11:52→21:19)
--- NOTE | 2019-09-09 12:14 | EKG ---
Test Reason : Blood Pressure : / mmHG Vent. Rate : 110 BPM Atrial Rate : 110 BPM P-R Int : 164 ms QRS Dur : 122 ms QT Int : 364 ms P-R-T Axes : 047 -56 -14 degrees QTc Int : 492 ms SINUS TACHYCARDIA WITH FUSION COMPLEXES RIGHT BUNDLE BRANCH BLOCK LEFT ANTERIOR FASCICULAR BLOCK BIFASCICULAR BLOCK MINIMAL VOLTAGE CRITERIA FOR LVH, MAY BE NORMAL VARIANT ABNORMAL ECG PREMATURE VENTRICULAR COMPLEXES Confirmed by MD Irma, Dontae ([id number]) on 09/09/2019 12:14:02 PM Referred By: PAYTON HILL Confirmed By:Dontae Solis MD
[2019-09-09 12:34] VITALS: BMI 24.8
[2019-09-09] MEDS ORDERED: INSULIN SLIDING SCALE (NOVOLOG) 1 VIAL SQ SCH ×2 (16:30)
[2019-09-09] MEDS ORDERED: INSULIN (NOVOLOG) ASPART 100 UNITS/ML 10ML VIAL SQ SCH (16:30)
--- NOTE | 2019-09-09 17:27 | CON.CARD ---
Consult Consult Specialty:: Cardiology Reason for Consultation:: Tachycardia - History of Present Illness Chief Complaint: Agitated History of Present Illness: This is a he patient is a 79 year old female with a significant past medical history of depression, dementia, Alzheimer's, IDDM, hypertension, hyperlipidemia and arthritis. She was noted to be tachycardic. EKG showed sinus tachcardia to 110 BPM with an RBBB. - Past Medical History Cardio/Vascular: Yes: HTN, Hyperlipdemia ...: No Psych: Yes: Depression Endocrine: Yes: Diabetes Mellitus - Alcohol/Substance Use Hx Alcohol Use: No - Smoking History Smoking history: Unknown if ever smoked Have you smoked in the past 12 months: No - Social History Usual Living Arrangement: With Child Home Medications - Allergies Allergies/Adverse Reactions: Allergies Allergy/AdvReac Type Severity Reaction Status Date / Time No Known Allergies Allergy Verified 09/07/19 01:09 - Home Medications Home Medications: Ambulatory Orders Atorvastatin Ca [Lipitor] 40 mg PO HS 04/28/17 Insulin (Novolog 70/30) [Novolog Mix 70/30 Flexpen -] 10 units SQ BID 04/28/17 Donepezil HCl [Aricept] 10 mg PO DAILY 12/17/17 Amlodipine Besylate 10 mg PO DAILY 09/07/19 Levothyroxine [Synthroid -] 50 mcg PO DAILY 09/07/19 Memantine HCl 10 mg PO BID 09/07/19 Metoprolol Succinate [Toprol XL -] 50 mg PO DAILY 09/07/19 Mirtazapine 30 mg PO HS 09/07/19 Vital Signs: Vital Signs Temperature 99.0 F 09/09/19 14:00 Pulse Rate 110 H 09/09/19 14:00 Respiratory Rate 20 09/09/19 14:00 Blood Pressure 143/81 09/09/19 14:00 O2 Sat by Pulse Oximetry (%) 95 09/09/19 09:00 Constitutional: Yes: Anxious HENT: Yes: WNL Neck: Yes: WNL Respiratory: Yes: WNL, CTA Bilaterally Gastrointestinal: Yes: Normal Bowel Sounds, Soft Cardiovascular: Yes: Regular Rate and Rhythm Heart Sounds: Yes: S1, S2 Edema: No Neurological: Yes: Alert (A+Ox1) - Other Data Labs, Other Data: CBC, BMP 09/09/19 06:50 09/09/19 06:50 INR, PTT INR 0.91 (0.83-1.09) 09/07/19 02:02 Assessment/Plan 79 year old female with a significant past medical history of depression, dementia, Alzheimer's, IDDM, hypertension, hyperlipidemia and arthritis. She was noted to be tachycardic. EKG showed sinus tachcardia to 110 BPM with an RBBB. Tachycardia Monitor for fever Last temp 99f May be secondary to agitation
--- NOTE | 2019-09-09 18:04 | PN ---
Progress Note (short form) - Note Progress Note: id consult dictated imp/reccd wbc 11k temp 99 no foci infection she is agitated agree with blood cultures and observation at this time thanks Problem List - Problems (1) Leukocytosis Code(s): D72.829 - ELEVATED WHITE BLOOD CELL COUNT, UNSPECIFIED (2) Agitation Code(s): R45.1 - RESTLESSNESS AND AGITATION (3) Dementia Code(s): F03.90 - UNSPECIFIED DEMENTIA WITHOUT BEHAVIORAL DISTURBANCE
[2019-09-09] MEDS ORDERED: INSULIN (NOVOLOG) ASPART 100 UNITS/ML 10ML VIAL ONE (21:14)
[2019-09-09] MEDS: DONEPEZIL HCL 10 MG TABLET (FP) PO SCH (21:21)
[2019-09-09] MEDS: ATORVASTATIN CA 40 MG TABLET (FP) PO SCH (21:21)
--- NOTE | 2019-09-09 23:27 | PN ---
Progress Note (short form) - Note Progress Note: 79 year old female history of Depression, dementia, IDDM,HTN,HLD. Patient was brought to hospital for hospital for agitation and confusion. She was not able to give any history, she was given ativan and pateint is sleepy druing interview. Patient came by ambulance, There is no fever, trauma, cancer .There is no difficulty of weakness, tingling and numbness. She has ct head is unremarkable. no new complain, patient is calmer and oriented x 1 Neurological examination Alert oriented x 1, able to talk and confused, she seems to be comfortable no twitching or facial droop noticed eomi, pupils reactive no neck stiffness moving all ext ct head unremarkable Assessment/Plan 79 year old female history of Depression, dementia, IDDM,HTN, HLD. Patient was brought to hospital for hospital for agitation and confusion. delirium secondary to dementia Plan . No need for mri of brain, eeg or spinal tap - continue supportive care, - Psych consult appreciated, start zyprexa - avoid constipation, hydrate - continue aricpet and namenda waiting for placement Thanking you so much Jacqui Oliva MD
[2019-09-10] MEDS: LEVOTHYROXINE NA 50 MCG TABLET (FP) PO SCH (06:11)
[2019-09-10] MEDS: INSULIN SLIDING SCALE (NOVOLOG) 1 VIAL SQ SCH ×4 (06:11→21:44)
[2019-09-10 08:35] LABS: HEMATOCRIT 39.7 % (32.4-45.2); HEMOGLOBIN 13.2 GM/dL (10.7-15.3); MCH 28.1 pg (25.7-33.7); MCHC 33.2 g/dl (32.0-36.0); MEAN CELL VOLUME 84.7 fl (80-96); MEAN PLT VOLUME 9.4 fl (7.5-11.1); PLATELET COUNT 360 K/MM3 (134-434); RBC 4.69 M/mm3 (3.60-5.2); RDW 15.2 % (11.6-15.6); WHITE BLOOD COUNT 12.9 K/mm3 (4.0-10.0)
[2019-09-10] MEDS: OLANZapine 5 MG TABLET PO SCH ×2 (09:20→21:41)
[2019-09-10] MEDS: MEMANTINE HCL 10 MG TABLET (FP) PO SCH ×2 (09:20→21:44)
[2019-09-10] MEDS: amLODIPine BESYLATE 10 MG TABLET (FP) PO SCH (09:20)
[2019-09-10] MEDS: ENOXAPARIN NA (PORCINE) 40 MG/0.4 ML DISP.SYRIN SQ SCH (09:21)
[2019-09-10 09:45] LABS: ALBUMIN 3.4 g/dl (3.4-5.0); BILIRUBIN,TOTAL 0.3 mg/dL (0.2-1); BLOOD UREA NITROGEN 23.6 mg/dL (7-18); CALCIUM 9.1 mg/dL (8.5-10.1); POTASSIUM 4.1 mmol/L (3.5-5.1); TOT PROT 7.3 g/dl (6.4-8.2)
--- NOTE | 2019-09-10 10:01 | PN ---
Progress Note, Physician Chief Complaint: AMS Agitation History of Present Illness: NAD still has [place] vest for safety low grade temps BC pending - Current Medication List Current Medications: Active Medications Amlodipine Besylate (Norvasc -) 10 mg PO DAILY [facility] Last Admin: 09/10/19 09:20 Dose: 10 mg Atorvastatin Calcium (Lipitor -) 40 mg PO HS [facility] Last Admin: 09/09/19 21:21 Dose: 40 mg Donepezil HCl (Aricept -) 10 mg PO [facility] Last Admin: 09/09/19 21:21 Dose: 10 mg Enoxaparin Sodium (Lovenox -) 40 mg SQ DAILY [facility] Last Admin: 09/10/19 09:21 Dose: 40 mg Insulin Aspart (Novolog Vial Sliding Scale -) 1 vial SQ [facility]; Protocol Last Admin: 09/10/19 06:11 Dose: 4 units Levothyroxine Sodium (Synthroid -) 50 mcg PO DAILY@0700 [facility] Last Admin: 09/10/19 06:11 Dose: 50 mcg Memantine (Namenda -) 10 mg PO BID [facility] Last Admin: 09/10/19 09:20 Dose: 10 mg Metoprolol Succinate (Toprol Xl -) 50 mg PO DAILY [facility] Last Admin: 09/10/19 09:20 Dose: 50 mg Olanzapine (Zyprexa -) 5 mg PO BID [facility] Last Admin: 09/10/19 09:20 Dose: 5 mg - Objective Vital Signs: Vital Signs Temperature 98.1 F 09/10/19 02:00 Pulse Rate 108 H 09/10/19 02:00 Respiratory Rate 20 09/10/19 02:00 Blood Pressure 141/98 09/10/19 02:00 O2 Sat by Pulse Oximetry (%) 95 09/09/19 09:00 Constitutional: Yes: Well Nourished, Calm, Anxious Cardiovascular: Yes: Regular Rate and Rhythm Respiratory: Yes: Regular Gastrointestinal: Yes: Normal Bowel Sounds, Soft Musculoskeletal: Yes: Muscle Weakness Extremities: Yes: WNL Edema: No Peripheral Pulses WNL: Yes Neurological: Yes: Alert, Pre-Existing Deficit Psychiatric: Yes: Alert Labs: CBC, BMP 09/10/19 07:30 09/10/19 07:30 INR, PTT INR 0.91 (0.83-1.09) 09/07/19 02:02 Assessment/Plan (1) Delirium Assessment/Plan: -Neurology on board -Psych on board -started on Olanzapine -Haldol discontinued -Head CT scan shows no acute intracranial pathology Code(s): R41.0 - DISORIENTATION, UNSPECIFIED (2) Confusion Assessment/Plan: -Neurology on board -Psych on board -Haldol discontinued -Head CT scan shows no acute intracranial pathology Code(s): R41.0 - DISORIENTATION, UNSPECIFIED (3) UTI (urinary tract infection) Assessment/Plan: -UA shows 3+ protein -UC neg -leukocytosis -afebrile Code(s): N39.0 - URINARY TRACT INFECTION, SITE NOT SPECIFIED (4) HTN (hypertension) Assessment/Plan: -Amlodipine, Metoprolol -low Na diet Code(s): I10 - ESSENTIAL (PRIMARY) HYPERTENSION (5) HLD (hyperlipidemia) Assessment/Plan: -Atorvastatin Code(s): E78.5 - HYPERLIPIDEMIA, UNSPECIFIED (6) Hypothyroidism Assessment/Plan: -Levothyroxine Code(s): E03.9 - HYPOTHYROIDISM, UNSPECIFIED (7) Diabetes Assessment/Plan: -BGM ACHS -HgA1c -ISS -Endocrinology consult Code(s): E11.9 - TYPE 2 DIABETES MELLITUS WITHOUT COMPLICATIONS (8) Leukocytosis Assessment/Plan: -UC neg -ID consult -BC ordered Code(s): D72.829 - ELEVATED WHITE BLOOD CELL COUNT, UNSPECIFIED (9) Tachycardia Assessment/Plan: -EKG stat -Cardiology consult Code(s): R00.0 - TACHYCARDIA, UNSPECIFIED Assessment/Plan see problem list dvt ppx
[2019-09-10] MEDS: DONEPEZIL HCL 10 MG TABLET (FP) PO SCH (21:44)
[2019-09-10] MEDS: ATORVASTATIN CA 40 MG TABLET (FP) PO SCH (21:44)
[2019-09-11] MEDS: INSULIN SLIDING SCALE (NOVOLOG) 1 VIAL SQ SCH ×4 (06:24→22:01)
[2019-09-11] MEDS: LEVOTHYROXINE NA 50 MCG TABLET (FP) PO SCH (06:24)
[2019-09-11] MEDS: amLODIPine BESYLATE 10 MG TABLET (FP) PO SCH (10:17)
[2019-09-11] MEDS: OLANZapine 5 MG TABLET PO SCH ×2 (10:17→21:46)
[2019-09-11] MEDS: MEMANTINE HCL 10 MG TABLET (FP) PO SCH ×2 (10:17→21:55)
[2019-09-11] MEDS: ENOXAPARIN NA (PORCINE) 40 MG/0.4 ML DISP.SYRIN SQ SCH (10:18)
--- NOTE | 2019-09-11 11:05 | PN ---
Progress Note, Physician Chief Complaint: AMS Agitation History of Present Illness: NAD still has Crook vest for safety low grade temps BC pending - Current Medication List Current Medications: Active Medications Amlodipine Besylate (Norvasc -) 10 mg PO DAILY [facility] Last Admin: 09/11/19 10:17 Dose: 10 mg Atorvastatin Calcium (Lipitor -) 40 mg PO HS [facility] Last Admin: 09/10/19 21:44 Dose: 40 mg Donepezil HCl (Aricept -) 10 mg PO [facility] Last Admin: 09/10/19 21:44 Dose: 10 mg Enoxaparin Sodium (Lovenox -) 40 mg SQ DAILY [facility] Last Admin: 09/11/19 10:18 Dose: 40 mg Insulin Aspart (Novolog Vial Sliding Scale -) 1 vial SQ [facility]; Protocol Last Admin: 09/11/19 06:24 Dose: 6 units Insulin Detemir (Levemir Vial) 10 units SQ BID [facility] Levothyroxine Sodium (Synthroid -) 50 mcg PO DAILY@0700 [facility] Last Admin: 09/11/19 06:24 Dose: 50 mcg Memantine (Namenda -) 10 mg PO BID [facility] Last Admin: 09/11/19 10:17 Dose: 10 mg Metoprolol Succinate (Toprol Xl -) 50 mg PO DAILY [facility] Last Admin: 09/11/19 10:17 Dose: 50 mg Olanzapine (Zyprexa -) 5 mg PO BID [facility] Last Admin: 09/11/19 10:17 Dose: 5 mg - Objective Vital Signs: Vital Signs Temperature 99.6 F 09/11/19 10:02 Pulse Rate 20 L 09/11/19 10:02 Respiratory Rate 118 H 09/11/19 10:02 Blood Pressure 150/84 09/11/19 10:02 O2 Sat by Pulse Oximetry (%) 94 L 09/10/19 21:00 Constitutional: Yes: Well Nourished, No Distress, Calm Cardiovascular: Yes: Regular Rate and Rhythm Respiratory: Yes: Regular Gastrointestinal: Yes: Normal Bowel Sounds, Soft Genitourinary: Yes: Incontinence Musculoskeletal: Yes: Muscle Weakness Extremities: Yes: WNL Edema: No Peripheral Pulses WNL: Yes Neurological: Yes: Alert, Confusion, Pre-Existing Deficit Psychiatric: Yes: Agitated Labs: CBC, BMP 09/10/19 07:30 09/10/19 07:30 INR, PTT INR 0.91 (0.83-1.09) 09/07/19 02:02 Assessment/Plan (1) Delirium Assessment/Plan: -Neurology on board -Psych on board -started on Olanzapine -Haldol discontinued -Head CT scan shows no acute intracranial pathology -Await BC Code(s): R41.0 - DISORIENTATION, UNSPECIFIED (2) Confusion Assessment/Plan: -Neurology on board -Psych on board -Haldol discontinued -Head CT scan shows no acute intracranial pathology Code(s): R41.0 - DISORIENTATION, UNSPECIFIED (3) UTI (urinary tract infection) Assessment/Plan: -UA shows 3+ protein -UC neg -leukocytosis -afebrile -Await Code(s): N39.0 - URINARY TRACT INFECTION, SITE NOT SPECIFIED (4) HTN (hypertension) Assessment/Plan: -Amlodipine, Metoprolol -low Na diet Code(s): I10 - ESSENTIAL (PRIMARY) HYPERTENSION (5) HLD (hyperlipidemia) Assessment/Plan: -Atorvastatin Code(s): E78.5 - HYPERLIPIDEMIA, UNSPECIFIED (6) Hypothyroidism Assessment/Plan: -Levothyroxine Code(s): E03.9 - HYPOTHYROIDISM, UNSPECIFIED (7) Diabetes Assessment/Plan: -BGM ACHS -HgA1c -ISS -Endocrinology consult Code(s): E11.9 - TYPE 2 DIABETES MELLITUS WITHOUT COMPLICATIONS (8) Leukocytosis Assessment/Plan: -UC neg -ID consult -BC pending Code(s): D72.829 - ELEVATED WHITE BLOOD CELL COUNT, UNSPECIFIED (9) Tachycardia Assessment/Plan: -EKG unremarkable -Cardiology consult Code(s): R00.0 - TACHYCARDIA, UNSPECIFIED Assessment/Plan see problem list dvt ppx
[2019-09-11 11:36] LABS: BASO % 0.8 % (0-2.0); EOS % 0.1 % (0-4.5); HEMATOCRIT 35.4 % (32.4-45.2); HEMOGLOBIN 11.7 GM/dL (10.7-15.3); LYMPH % 16.5 % (8-40); MCH 27.9 pg (25.7-33.7); MEAN CELL VOLUME 84.4 fl (80-96); MEAN PLT VOLUME 9.5 fl (7.5-11.1); MONO % 6.9 % (3.8-10.2); NEUT % 75.7 % (42.8-82.8); PLATELET COUNT 319 K/MM3 (134-434); RBC 4.19 M/mm3 (3.60-5.2); RDW 14.8 % (11.6-15.6); WHITE BLOOD COUNT 12.5 K/mm3 (4.0-10.0)
[2019-09-11] MEDS: INSULIN (LEVEMIR) 100 UNITS/ML UNITS SQ SCH ×2 (12:12→22:00)
--- NOTE | 2019-09-11 12:31 | PN ---
Progress Note (short form) - Note Progress Note: 79 year old female history of Depression, dementia, IDDM,HTN,HLD. Patient was brought to hospital for hospital for agitation and confusion. She was not able to give any history, she was given ativan and pateint is sleepy druing interview. Patient came by ambulance, There is no fever, trauma, cancer .There is no difficulty of weakness, tingling and numbness. She has ct head is unremarkable. no new complain, spoke to nursing. Neurological examination Alert oriented x 1, able to talk and confused, she seems to be comfortable no twitching or facial droop noticed eomi, pupils reactive no neck stiffness moving all ext ct head unremarkable Assessment/Plan 79 year old female history of Depression, dementia, IDDM,HTN, HLD. Patient was brought to hospital for hospital for agitation and confusion. delirium secondary to dementia Plan . - continue supportive care, - continue zyprexa - continue aricpet and namenda waiting for placement Thanking you so much Jacqui Oliva MD
[2019-09-11] MEDS ORDERED: INSULIN (LEVEMIR) 100 UNITS/ML UNITS SQ ONE (12:41)
--- NOTE | 2019-09-11 15:04 | PN ---
Progress Note (short form) - Note Progress Note: temp of 100.4 asked to f/u alert, agitated Vital Signs Period Temp Pulse Resp BP Sys/Aldridge Pulse Ox Last 24 Hr 98.0 F-99.6 F 18-134 20-118 117-159/66-84 94 cor-rrr lungs clear abd soft,nt well healed abdominal incision ext no edema, less swelling right hand cxray no infiltrate-poor inspiration CBC, BMP 09/11/19 11:26 09/10/19 07:30 Microbiology 09/10/19 11:55 Blood - Peripheral Venous Blood Culture - Preliminary NO GROWTH OBTAINED AFTER 24 HOURS, INCUBATION TO CONTINUE FOR 4 DAYS. 09/10/19 11:45 Blood - Peripheral Venous Blood Culture - Preliminary NO GROWTH OBTAINED AFTER 24 HOURS, INCUBATION TO CONTINUE FOR 4 DAYS. 09/07/19 05:15 Urine - Urine Clean Catch Urine Culture - Final NO GROWTH OBTAINED a/p low grade temp no foci of infection would observe off antibiotics at this time agitated dementia per neuro and psych Problem List - Problems (1) Leukocytosis Code(s): D72.829 - ELEVATED WHITE BLOOD CELL COUNT, UNSPECIFIED (2) Agitation Code(s): R45.1 - RESTLESSNESS AND AGITATION (3) Dementia Code(s): F03.90 - UNSPECIFIED DEMENTIA WITHOUT BEHAVIORAL DISTURBANCE
[2019-09-11 16:48] LABS: EPI CELLS 0.5 /HPF (0-5/HPF); HYALINE CASTS 1 /lpf (0-8); PH,URINE 5.5 (5.0-8.0); URINE APPEARANCE CLOUDY; URINE BACTERIA 1120.2 /hpf (NEGATIVE); URINE BILIRUBIN NEGATIVE (NEGATIVE); URINE COLOR YELLOW; URINE GLUCOSE (UA) 3+ (NEGATIVE); URINE KETONE TRACE (NEGATIVE); URINE LEUK ESTERASE NEGATIVE (NEGATIVE); URINE NITRITE NEGATIVE (NEGATIVE); URINE PROTEIN 3+ (NEGATIVE); URINE UROBILINOGEN 0.2 mg/dL (0.2-1.0)
[2019-09-11 17:25] LABS: URINE WBC 15-20 /hpf (0-5)
[2019-09-11] MEDS ORDERED: PIPERACILLIN/TAZOBACTAM 3.375 GM VIAL IVPB ONE (17:35)
[2019-09-11] MEDS ORDERED: DEXTROSE 5%-WATER - 50 ML IVPB ONE (17:35)
[2019-09-11] MEDS: PIPERACILLIN/TAZOB 3.375 GM 3.375 GM in DEXTROSE 5%-WATER - 50 ML IVPB SCH (19:14)
[2019-09-11] MEDS: DONEPEZIL HCL 10 MG TABLET (FP) PO SCH (21:46)
[2019-09-11] MEDS: ATORVASTATIN CA 40 MG TABLET (FP) PO SCH (21:56)
[2019-09-12] MEDS ORDERED: DEXTROSE 5%-WATER - 50 ML IVPB ONE ×3 (02:45→17:39)
[2019-09-12] MEDS ORDERED: PIPERACILLIN/TAZOBACTAM 3.375 GM VIAL IVPB ONE ×3 (02:45→17:39)
[2019-09-12] MEDS: PIPERACILLIN/TAZOB 3.375 GM 3.375 GM in DEXTROSE 5%-WATER - 50 ML IVPB SCH ×3 (03:07→17:54)
[2019-09-12] MEDS: LEVOTHYROXINE NA 50 MCG TABLET (FP) PO SCH (06:18)
[2019-09-12] MEDS: INSULIN SLIDING SCALE (NOVOLOG) 1 VIAL SQ SCH ×4 (07:24→23:08)
[2019-09-12] MEDS: INSULIN (LEVEMIR) 100 UNITS/ML UNITS SQ SCH ×2 (09:26→23:06)
[2019-09-12] MEDS: OLANZapine 5 MG TABLET PO SCH ×2 (10:11→23:02)
[2019-09-12] MEDS: amLODIPine BESYLATE 10 MG TABLET (FP) PO SCH (10:11)
[2019-09-12] MEDS: MEMANTINE HCL 10 MG TABLET (FP) PO SCH ×2 (10:11→23:02)
--- NOTE | 2019-09-12 10:31 | PN ---
Progress Note, Physician Chief Complaint: AMS History of Present Illness: Previous notes and events reviewed awake and oriented x 1, confused NAD no events overnight leukocytosis UC pending BC prelim positive x 1 Abd US performed results pending - Current Medication List Current Medications: Active Medications Amlodipine Besylate (Norvasc -) 10 mg PO DAILY [facility] Last Admin: 09/12/19 10:11 Dose: 10 mg Atorvastatin Calcium (Lipitor -) 40 mg PO HS [facility] Last Admin: 09/11/19 21:56 Dose: 40 mg Donepezil HCl (Aricept -) 10 mg PO HS [facility] Last Admin: 09/11/19 21:46 Dose: 10 mg Enoxaparin Sodium (Lovenox -) 40 mg SQ DAILY [facility] Last Admin: 09/11/19 10:18 Dose: 40 mg Piperacillin Sod/Tazobactam (Sod 3.375 gm/ Dextrose) 50 mls @ 100 mls/hr IVPB Q8H-IV [facility]; Protocol Last Admin: 09/12/19 10:11 Dose: 100 mls/hr Insulin Aspart (Novolog Vial Sliding Scale -) 1 vial SQ ACHS [facility]; Protocol Last Admin: 09/12/19 07:24 Dose: Not Given Insulin Detemir (Levemir Vial) 10 units SQ 0700,2200 [facility] Last Admin: 09/12/19 09:26 Dose: Not Given Levothyroxine Sodium (Synthroid -) 50 mcg PO DAILY@0700 [facility] Last Admin: 09/12/19 06:18 Dose: 50 mcg Memantine (Namenda -) 10 mg PO BID [facility] Last Admin: 09/12/19 10:11 Dose: 10 mg Metoprolol Succinate (Toprol Xl -) 50 mg PO DAILY [facility] Last Admin: 09/12/19 10:11 Dose: 50 mg Olanzapine (Zyprexa -) 5 mg PO BID [facility] Last Admin: 09/12/19 10:11 Dose: 5 mg - Objective Vital Signs: Vital Signs Temperature 98.3 F 09/12/19 10:13 Pulse Rate 111 H 09/12/19 10:13 Respiratory Rate 20 09/12/19 10:13 Blood Pressure 154/93 09/12/19 10:13 O2 Sat by Pulse Oximetry (%) 95 09/11/19 21:00 Constitutional: Yes: No Distress, Calm Eyes: Yes: Conjunctiva Clear HENT: Yes: Atraumatic Cardiovascular: Yes: Regular Rate and Rhythm Respiratory: Yes: Regular, CTA Bilaterally Gastrointestinal: Yes: Normal Bowel Sounds, Soft Musculoskeletal: Yes: Muscle Weakness Extremities: Yes: WNL Edema: No Integumentary: Yes: Bruising (R hand) Neurological: Yes: Alert, Confusion Psychiatric: Yes: Alert Labs: INR, PTT INR 0.91 (0.83-1.09) 09/07/19 02:02 Microbiology 09/10/19 11:45 Blood - Peripheral Venous Blood Culture - Preliminary Bacillus Species 09/10/19 11:55 Blood - Peripheral Venous Blood Culture - Preliminary NO GROWTH OBTAINED AFTER 24 HOURS, INCUBATION TO CONTINUE FOR 4 DAYS. 09/07/19 05:15 Urine - Urine Clean Catch Urine Culture - Final NO GROWTH OBTAINED Problem List - Problems (1) Delirium Assessment/Plan: -Neurology on board -Psych on board -started on Olanzapine -Namenda and Aricept -Haldol discontinued -Head CT scan shows no acute intracranial pathology Code(s): R41.0 - DISORIENTATION, UNSPECIFIED (2) Confusion Assessment/Plan: -Neurology on board -Psych on board -Haldol discontinued -Head CT scan shows no acute intracranial pathology Code(s): R41.0 - DISORIENTATION, UNSPECIFIED (3) UTI (urinary tract infection) Assessment/Plan: -UA shows 3+ protein -UC neg -leukocytosis -afebrile -repeat UC pending Code(s): N39.0 - URINARY TRACT INFECTION, SITE NOT SPECIFIED (4) HTN (hypertension) Assessment/Plan: -Amlodipine, Metoprolol -low Na diet Code(s): I10 - ESSENTIAL (PRIMARY) HYPERTENSION (5) HLD (hyperlipidemia) Assessment/Plan: -Atorvastatin Code(s): E78.5 - HYPERLIPIDEMIA, UNSPECIFIED (6) Hypothyroidism Assessment/Plan: -Levothyroxine Code(s): E03.9 - HYPOTHYROIDISM, UNSPECIFIED (7) Diabetes Assessment/Plan: -BGM ACHS -HgA1c 8.5% -ISS -Endocrinology consult -Levemir BID Code(s): E11.9 - TYPE 2 DIABETES MELLITUS WITHOUT COMPLICATIONS (8) Leukocytosis Assessment/Plan: -WBC 12.5 -UC neg, repeat UC pending -ID consult -BC prelim positive x 1 Code(s): D72.829 - ELEVATED WHITE BLOOD CELL COUNT, UNSPECIFIED (9) Tachycardia Assessment/Plan: -EKG reviewed -Cardiology on board Code(s): R00.0 - TACHYCARDIA, UNSPECIFIED Assessment/Plan see problem list dvt ppx
[2019-09-12] MEDS: ENOXAPARIN NA (PORCINE) 40 MG/0.4 ML DISP.SYRIN SQ SCH (10:39)
[2019-09-12 10:48] LABS: BILIRUBIN,TOTAL 0.5 mg/dL (0.2-1); BLOOD UREA NITROGEN 25.7 mg/dL (7-18); CALCIUM 9.1 mg/dL (8.5-10.1); CREATININE 0.9 mg/dL (0.55-1.3); POTASSIUM 3.9 mmol/L (3.5-5.1); TOT PROT 7.1 g/dl (6.4-8.2)
[2019-09-12 10:59] LABS: BASO % 0.5 % (0-2.0); EOS % 0.5 % (0-4.5); HEMATOCRIT 37.3 % (32.4-45.2); HEMOGLOBIN 12.6 GM/dL (10.7-15.3); LYMPH % 17.4 % (8-40); MCH 28.4 pg (25.7-33.7); MCHC 33.7 g/dl (32.0-36.0); MEAN CELL VOLUME 84.2 fl (80-96); MEAN PLT VOLUME 9.6 fl (7.5-11.1); MONO % 6.1 % (3.8-10.2); NEUT % 75.5 % (42.8-82.8); PLATELET COUNT 322 K/MM3 (134-434); RBC 4.43 M/mm3 (3.60-5.2); WHITE BLOOD COUNT 14.2 K/mm3 (4.0-10.0)
--- NOTE | 2019-09-12 12:12 | PN ---
Progress Note (short form) - Note Progress Note: temp of 100.4 informed by nurse yesterday- patient with GNR in her blood sono ordered and zosyn started today blood culture report is changed to one bottle bacillus- most likely contaminant stright cath urine is pending as well she is much calmer today Vital Signs Period Temp Pulse Resp BP Sys/Aldridge Pulse Ox Last 24 Hr 98.3 F-100.6 F 104-134 18-20 117-156/66-93 95 cor-rrr lungs clear abd soft,nt ext no edema US pending CBC, BMP 09/12/19 10:00 09/12/19 10:00 Microbiology 09/10/19 11:55 Blood - Peripheral Venous Blood Culture - Preliminary NO GROWTH OBTAINED AFTER 48 HOURS, INCUBATION TO CONTINUE FOR 3 DAYS. 09/10/19 11:45 Blood - Peripheral Venous Blood Culture - Preliminary Bacillus Species 09/07/19 05:15 Urine - Urine Clean Catch Urine Culture - Final NO GROWTH OBTAINED a/p low grade temp blood culture represents contaminant (skin) on zosyn for possible UTI f/u sonogram f/u cultures agitated dementia per neuro and psych Problem List - Problems (1) Leukocytosis Code(s): D72.829 - ELEVATED WHITE BLOOD CELL COUNT, UNSPECIFIED (2) Agitation Code(s): R45.1 - RESTLESSNESS AND AGITATION (3) Dementia Code(s): F03.90 - UNSPECIFIED DEMENTIA WITHOUT BEHAVIORAL DISTURBANCE
--- NOTE | 2019-09-12 13:29 | CONSULT ---
Consult Consult Specialty:: Endocrinology Referred by:: Fay Alvares Reason for Consultation:: Hyperglycemia - History of Present Illness Chief Complaint: AMS History of Present Illness: This is a 79 year old female with history of depression, dementia, Alzheimer's , DM, hypertension, hyperlipidemia and arthritis who presented to the ED BIBA for AMS. EMS reports daughter called the ambulance. Patient is not able to contribute to history due to her clinical condition. Pt has a swollen hand and forearm with bruising and when asked about it, patient pointed to hand and started crying. Pt currently in the floor, Opens eyes to stimuli but unable to give history. - History Source History Provided By: Medical Record - Past Medical History Cardio/Vascular: Yes: HTN, Hyperlipdemia ...: No Psych: Yes: Depression Endocrine: Yes: Diabetes Mellitus - Alcohol/Substance Use Hx Alcohol Use: No - Smoking History Smoking history: Unknown if ever smoked Have you smoked in the past 12 months: No - Social History Usual Living Arrangement: With Child Home Medications - Allergies Allergies/Adverse Reactions: Allergies Allergy/AdvReac Type Severity Reaction Status Date / Time No Known Allergies Allergy Verified 09/07/19 01:09 - Home Medications Home Medications: Ambulatory Orders Atorvastatin Ca [Lipitor] 40 mg PO HS 04/28/17 Insulin (Novolog 70/30) [Novolog Mix 70/30 Flexpen -] 10 units SQ BID 04/28/17 Donepezil HCl [Aricept] 10 mg PO DAILY 12/17/17 Amlodipine Besylate 10 mg PO DAILY 09/07/19 Levothyroxine [Synthroid -] 50 mcg PO DAILY 09/07/19 Memantine HCl 10 mg PO BID 09/07/19 Metoprolol Succinate [Toprol XL -] 50 mg PO DAILY 09/07/19 Mirtazapine 30 mg PO HS 09/07/19 Review of Systems Unable to obtain ROS, reason: AMS Physical Exam Vital Signs: Vital Signs Temperature 98.3 F 09/12/19 10:13 Pulse Rate 111 H 09/12/19 10:13 Respiratory Rate 20 09/12/19 10:13 Blood Pressure 154/93 09/12/19 10:13 O2 Sat by Pulse Oximetry (%) 95 09/11/19 21:00 Constitutional: Yes: No Distress, Calm Eyes: Yes: Conjunctiva Clear HENT: Yes: Atraumatic, Normocephalic Neck: Yes: Supple, Trachea Midline Cardiovascular: Yes: Regular Rate and Rhythm Gastrointestinal: Yes: Normal Bowel Sounds, Soft Extremities: Yes: WNL Edema: No Labs: CBC, BMP 09/12/19 10:00 09/12/19 10:00 Assessment/Plan AP: AMS UTI DM Hypothyroidism HTN BGM Q ACHS Levemir 10 BID Novolog SS coverage Will monitor BGM on current regimen and adjust dose as necessary. Will F/U
--- NOTE | 2019-09-12 18:57 | CONS ---
DATE OF CONSULTATION: DATE OF DICTATION: 09/09/2019 REQUESTED BY: Nigel Spicer MD This is a 79-year-old woman, past medical history of dementia and depression, presents to the ER with a swollen ecchymotic hand that is quite painful. She was apparently brought to the ER for increased confusion and agitation at home. She was apparently becoming more aggressive in her house. She was throwing herself on the bathroom floor and she injured her hand with that. She has been having anger outbursts, per the emergency room note. She was admitted, has been seen by Psychiatry, who was treating her for agitation, and by Neurology, who thinks that this is all secondary to her dementia. She has had a head CT that showed no evidence of any acute intracranial pathology, a chest x-ray without any infiltrate, and no fracture of her hand. I am asked to see her because today she has a white count of 11.1 and a temperature of 99. She is awake and alert. Her past medical history is notable for a history of depression, dementia of Alzheimer's type, diabetes, hypertension, hyperlipidemia, and arthritis. Surgical history is notable for appendectomy, section, and bilateral breast cysts. She lives at home with her daughter. She is retired. 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 She is a former smoker. No history of alcohol or substance use. Family history is notable for an aunt with breast cancer, grandmother with cholangiocarcinoma, uncle with a stroke. She has no known drug allergies. Of note, she has had multiple evaluations for psychosis and confusion in the past. Her review of systems is not obtainable. PHYSICAL EXAMINATION: Vital Signs: Her temperature is 99. Pulse 110. Blood pressure 143/81. Respiratory rate 20. HEENT: Normocephalic. Her eyes are anicteric. Neck: Supple. She has no meningeal signs. Lungs: Clear to auscultation. Heart: Regular rate and rhythm. Lymph Nodes: She has no axillary adenopathy. Abdomen: Soft, nontender. Extremities: Without edema. White count is 11.1, hemoglobin 12.8, platelets 363, INR is 0.9. BUN 19, creatinine 1.2, with a glucose of 413. Alkaline phosphatase is 169. Urinalysis is negative for leukocytes or white cells. Stool occult blood is negative. Urine culture is negative. Imaging is as reported. In summary, this is a 79-year-old woman admitted with agitation secondary to dementia, who has a temperature of 99 with a white count of 11,000. Would agree with blood cultures at this time. She has no foci of infection on exam. Would observe off antibiotics. ARVIN STUBBS M.D. [id number]
[2019-09-12] MEDS: ATORVASTATIN CA 40 MG TABLET (FP) PO SCH (23:02)
[2019-09-12] MEDS: DONEPEZIL HCL 10 MG TABLET (FP) PO SCH (23:02)
[2019-09-13] MEDS ORDERED: PIPERACILLIN/TAZOBACTAM 3.375 GM VIAL IVPB ONE ×2 (01:39→08:53)
[2019-09-13] MEDS ORDERED: DEXTROSE 5%-WATER - 50 ML IVPB ONE ×2 (01:40→08:53)
[2019-09-13] MEDS: PIPERACILLIN/TAZOB 3.375 GM 3.375 GM in DEXTROSE 5%-WATER - 50 ML IVPB SCH ×2 (01:50→09:09)
[2019-09-13] MEDS: INSULIN (LEVEMIR) 100 UNITS/ML UNITS SQ SCH ×2 (07:10→23:18)
[2019-09-13] MEDS: INSULIN SLIDING SCALE (NOVOLOG) 1 VIAL SQ SCH ×4 (07:11→23:19)
[2019-09-13] MEDS: LEVOTHYROXINE NA 50 MCG TABLET (FP) PO SCH (07:14)
[2019-09-13 07:59] LABS: HEMATOCRIT 34.7 % (32.4-45.2); HEMOGLOBIN 11.6 GM/dL (10.7-15.3); MCHC 33.4 g/dl (32.0-36.0); MEAN CELL VOLUME 83.7 fl (80-96); MEAN PLT VOLUME 9.6 fl (7.5-11.1); PLATELET COUNT 313 K/MM3 (134-434); RBC 4.14 M/mm3 (3.60-5.2); RDW 14.6 % (11.6-15.6); WHITE BLOOD COUNT 11.8 K/mm3 (4.0-10.0)
[2019-09-13 08:17] LABS: ALBUMIN 2.6 g/dl (3.4-5.0); BILIRUBIN,TOTAL 0.4 mg/dL (0.2-1); BLOOD UREA NITROGEN 25.7 mg/dL (7-18); CALCIUM 8.4 mg/dL (8.5-10.1); TOT PROT 6.6 g/dl (6.4-8.2)
[2019-09-13] MEDS: ENOXAPARIN NA (PORCINE) 40 MG/0.4 ML DISP.SYRIN SQ SCH (09:09)
[2019-09-13] MEDS: MEMANTINE HCL 10 MG TABLET (FP) PO SCH ×2 (09:10→23:12)
[2019-09-13] MEDS: OLANZapine 5 MG TABLET PO SCH ×2 (09:10→23:12)
[2019-09-13] MEDS: amLODIPine BESYLATE 10 MG TABLET (FP) PO SCH (09:10)
--- NOTE | 2019-09-13 09:52 | PN ---
Progress Note, Physician Chief Complaint: AMS History of Present Illness: Previous notes and events reviewed awake and oriented x 1, confused NAD leukocytosis low grade temp tachycardia Abd US shows dilated CBD, patient denies abdominal pain - Current Medication List Current Medications: Active Medications Amlodipine Besylate (Norvasc -) 10 mg PO DAILY [facility] Last Admin: 09/13/19 09:10 Dose: 10 mg Atorvastatin Calcium (Lipitor -) 40 mg PO HS [facility] Last Admin: 09/12/19 23:02 Dose: 40 mg Donepezil HCl (Aricept -) 10 mg PO HS [facility] Last Admin: 09/12/19 23:02 Dose: 10 mg Enoxaparin Sodium (Lovenox -) 40 mg SQ DAILY [facility] Last Admin: 09/13/19 09:09 Dose: 40 mg Piperacillin Sod/Tazobactam (Sod 3.375 gm/ Dextrose) 50 mls @ 100 mls/hr IVPB Q8H-IV [facility]; Protocol Last Admin: 09/13/19 09:09 Dose: 100 mls/hr Insulin Aspart (Novolog Vial Sliding Scale -) 1 vial SQ ACHS [facility]; Protocol Last Admin: 09/13/19 07:11 Dose: 6 units Insulin Detemir (Levemir Vial) 10 units SQ BID@0700,2200 [facility] Last Admin: 09/13/19 07:10 Dose: 10 unit Levothyroxine Sodium (Synthroid -) 50 mcg PO DAILY@0700 [facility] Last Admin: 09/13/19 07:14 Dose: 50 mcg Memantine (Namenda -) 10 mg PO BID [facility] Last Admin: 09/13/19 09:10 Dose: 10 mg Metoprolol Succinate (Toprol Xl -) 50 mg PO DAILY [facility] Last Admin: 09/13/19 09:10 Dose: 50 mg Olanzapine (Zyprexa -) 5 mg PO BID [facility] Last Admin: 09/13/19 09:10 Dose: 5 mg - Objective Vital Signs: Vital Signs Temperature 99.8 F H 09/13/19 09:07 Pulse Rate 115 H 09/13/19 09:07 Respiratory Rate 18 09/13/19 09:07 Blood Pressure 140/82 09/13/19 09:07 O2 Sat by Pulse Oximetry (%) 96 09/12/19 09:00 Constitutional: Yes: No Distress, Calm Eyes: Yes: Conjunctiva Clear HENT: Yes: Atraumatic Cardiovascular: Yes: Tachycardia Respiratory: Yes: Regular, CTA Bilaterally Gastrointestinal: Yes: Normal Bowel Sounds, Soft Genitourinary: Yes: Incontinence Musculoskeletal: Yes: Muscle Weakness Extremities: Yes: WNL Edema: No Neurological: Yes: Alert, Oriented (to person only), Confusion Psychiatric: Yes: Alert, Oriented (to person only) Labs: CBC, BMP 09/13/19 07:00 09/13/19 07:00 INR, PTT INR 0.91 (0.83-1.09) 09/07/19 02:02 - ....Imaging Ultrasound: Report Reviewed Problem List - Problems (1) Delirium Assessment/Plan: -Neurology on board -Psych on board -started on Olanzapine -Namenda and Aricept -Haldol discontinued -Head CT scan shows no acute intracranial pathology Code(s): R41.0 - DISORIENTATION, UNSPECIFIED (2) Confusion Assessment/Plan: -Neurology on board -Psych on board -Haldol discontinued -Head CT scan shows no acute intracranial pathology Code(s): R41.0 - DISORIENTATION, UNSPECIFIED (3) UTI (urinary tract infection) Assessment/Plan: -UA shows 3+ protein -UC neg -leukocytosis -afebrile -repeat UC prelim positive Code(s): N39.0 - URINARY TRACT INFECTION, SITE NOT SPECIFIED (4) HTN (hypertension) Assessment/Plan: -Amlodipine, Metoprolol -low Na diet Code(s): I10 - ESSENTIAL (PRIMARY) HYPERTENSION (5) HLD (hyperlipidemia) Assessment/Plan: -Atorvastatin Code(s): E78.5 - HYPERLIPIDEMIA, UNSPECIFIED (6) Hypothyroidism Assessment/Plan: -Levothyroxine Code(s): E03.9 - HYPOTHYROIDISM, UNSPECIFIED (7) Diabetes Assessment/Plan: -BGM ACHS -HgA1c 8.5% -ISS -Endocrinology consult -Levemir BID Code(s): E11.9 - TYPE 2 DIABETES MELLITUS WITHOUT COMPLICATIONS (8) Leukocytosis Assessment/Plan: -WBC 12.5 -repeat UC prelim positive -ID on board -BC prelim positive x 1 -Abd US shows poor visualization of gallbladder, cholelithiasis cannot be excluded, prominent CBD 9mm, probable diffuse fatty infiltration of liver Code(s): D72.829 - ELEVATED WHITE BLOOD CELL COUNT, UNSPECIFIED (9) Tachycardia Assessment/Plan: -EKG reviewed -Cardiology on board Code(s): R00.0 - TACHYCARDIA, UNSPECIFIED (10) Dilated cbd, acquired Assessment/Plan: -Abd US shows poor visualization of gallbladder, cholelithiasis cannot be excluded, prominent CBD 9mm, probable diffuse fatty infiltration of liver -GI consult Code(s): K83.8 - OTHER SPECIFIED DISEASES OF BILIARY TRACT Assessment/Plan see problem list dvt ppx
--- NOTE | 2019-09-13 11:06 | CON.GI ---
Consult Consult Specialty:: GI Referred by:: Fay Alvares NP Reason for Consultation:: Dilated CBD - History of Present Illness Chief Complaint: Patient without focal complaints currently History of Present Illness: 79F admitted 09/07 for altered mental status. has been evaluated by neurology, psychology, ID, cardiology and endocrinology. Called to evaluate dilated CBD ( 9mm) noted on abdominal US performed yesterday. Apparently the bile duct was also noted to be dilated on CT scan from 2017. The gallbladder was not visualized on that study and the patient denies having had a cholecystectomy. Liver chemistries have been normal aside from mildly elevated ALP. The ALP has been in a normalizing trend from admission. Patient denies any focal GI Complaints. 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 At that time procedures were refused by patient's daughter. - History Source History Provided By: Medical Record Limitations to Obtaining History: Other (confusion) - Past Medical History Cardio/Vascular: Yes: HTN, Hyperlipdemia ...: No Psych: Yes: Depression Endocrine: Yes: Diabetes Mellitus - Past Surgical History Past Surgical History: Yes: - Alcohol/Substance Use Hx Alcohol Use: No - Smoking History Smoking history: Unknown if ever smoked Have you smoked in the past 12 months: No - Social History Usual Living Arrangement: With Child Home Medications - Allergies Allergies/Adverse Reactions: Allergies Allergy/AdvReac Type Severity Reaction Status Date / Time No Known Allergies Allergy Verified 09/07/19 01:09 - Home Medications Home Medications: Ambulatory Orders Atorvastatin Ca [Lipitor] 40 mg PO HS 04/28/17 Insulin (Novolog 70/30) [Novolog Mix 70/30 Flexpen -] 10 units SQ BID 04/28/17 Donepezil HCl [Aricept] 10 mg PO DAILY 12/17/17 Amlodipine Besylate 10 mg PO DAILY 09/07/19 Levothyroxine [Synthroid -] 50 mcg PO DAILY 09/07/19 Memantine HCl 10 mg PO BID 09/07/19 Metoprolol Succinate [Toprol XL -] 50 mg PO DAILY 09/07/19 Mirtazapine 30 mg PO HS 09/07/19 Family Medical History Family History: Unable to Obtain Review of Systems - Review of Systems Gastrointestinal: denies: Abdominal Pain, Nausea Physical Exam-GI Vital Signs: Vital Signs Temperature 99.8 F H 09/13/19 09:07 Pulse Rate 115 H 09/13/19 09:07 Respiratory Rate 18 09/13/19 09:07 Blood Pressure 140/82 09/13/19 09:07 O2 Sat by Pulse Oximetry (%) 96 09/12/19 09:00 Labs: CBC, BMP 09/13/19 07:00 09/13/19 07:00 INR, PTT INR 0.91 (0.83-1.09) 09/07/19 02:02 Problem List - Problems (1) Common bile duct dilatation Assessment/Plan: Appears to be chronic, dating back to at least 2017 (the report is available for review in the [facility] system). Liver chemisgtries without obstructive pattern and patient without abdominal complaints Advise: MRCP if patient can cooperate Ordered GGT and hepatic panel for AM Code(s): K83.8 - OTHER SPECIFIED DISEASES OF BILIARY TRACT
--- NOTE | 2019-09-13 11:43 | PN ---
Progress Note (short form) - Note Progress Note: no complaints Vital Signs Period Temp Pulse Resp BP Sys/Aldridge Pulse Ox Last 24 Hr 98.1 F-100.3 F 101-115 18-20 122-150/65-84 cor-rrr lungs clear abd soft,nt ext no edema, less echymoses of the right hand CBC, BMP 09/13/19 07:00 09/13/19 07:00 Microbiology 09/11/19 15:30 Urine - Urine Clean Catch Urine Culture - Preliminary Group D Strep Or Entero Coccus 09/10/19 11:55 Blood - Peripheral Venous Blood Culture - Preliminary NO GROWTH OBTAINED AFTER 48 HOURS, INCUBATION TO CONTINUE FOR 3 DAYS. 09/10/19 11:45 Blood - Peripheral Venous Blood Culture - Preliminary Bacillus Species 09/07/19 05:15 Urine - Urine Clean Catch Urine Culture - Final NO GROWTH OBTAINED a/p low grade temp blood culture represents contaminant (skin) urine culture enterococcus- switch to ampicillin for UTI agitated dementia per neuro and psych Problem List - Problems (1) Leukocytosis Code(s): D72.829 - ELEVATED WHITE BLOOD CELL COUNT, UNSPECIFIED (2) Agitation Code(s): R45.1 - RESTLESSNESS AND AGITATION (3) Dementia Code(s): F03.90 - UNSPECIFIED DEMENTIA WITHOUT BEHAVIORAL DISTURBANCE
[2019-09-13] MEDS ORDERED: INSULIN (NOVOLOG MIX 70/30) 100 UNITS/ML MDV SQ ONE (11:57)
--- NOTE | 2019-09-13 12:22 | PN ---
Progress Note (short form) - Note Progress Note: In bed eating lunch Food intake fluctuating BGM 200s No hypos Vital Signs Period Temp Pulse Resp BP Sys/Aldridge Pulse Ox Last 24 Hr 98.1 F-100.3 F 101-115 18-20 122-150/65-84 PE: Awake, alert, confused Neck: Supple. No JVD HEENT: EOMI Lungs: CTA CVS: s1S2 Abd: Benign EXt: No edema CMP Sodium 137 mmol/L (136-145) 09/13/19 07:00 Potassium 4.0 mmol/L (3.5-5.1) 09/13/19 07:00 Chloride 102 mmol/L (98-107) 09/13/19 07:00 Carbon Dioxide 27 mmol/L (21-32) 09/13/19 07:00 Anion Gap 8 MMOL/L (8-16) 09/13/19 07:00 BUN 25.7 mg/dL (7-18) H 09/13/19 07:00 Creatinine 1.0 mg/dL (0.55-1.3) 09/13/19 07:00 Est GFR (CKD-EPI)AfAm 62.49 09/13/19 07:00 Est GFR (CKD-EPI)NonAf 53.92 09/13/19 07:00 POC Glucometer 288 UNITS (80-120) 09/13/19 11:53 Random Glucose 341 mg/dL (74-106) H 09/13/19 07:00 Hemoglobin A1c % 8.5 % (4.2-6.3) H 09/10/19 07:30 Lactic Acid 1.4 mmol/L (0.4-2.0) 09/07/19 02:02 Calcium 8.4 mg/dL (8.5-10.1) L 09/13/19 07:00 Total Bilirubin 0.4 mg/dL (0.2-1) 09/13/19 07:00 AST 35 U/L (15-37) 09/13/19 07:00 ALT 39 U/L (13-61) 09/13/19 07:00 Alkaline Phosphatase 118 U/L (45-117) H 09/13/19 07:00 Total Protein 6.6 g/dl (6.4-8.2) 09/13/19 07:00 Albumin 2.6 g/dl (3.4-5.0) L 09/13/19 07:00 TSH 1.78 uIU/ml (0.358-3.74) 09/08/19 07:00 Current Medications Generic Name Dose Route Start Last Admin Trade Name Karla PRN Reason Stop Dose Admin Amlodipine Besylate 10 mg 09/08/19 10:00 09/13/19 09:10 Norvasc - PO 10 mg DAILY CURT Administration Amoxicillin 500 mg 09/13/19 14:00 Amoxicillin - PO TID CUTR Atorvastatin Calcium 40 mg 09/07/19 22:00 09/12/19 23:02 Lipitor - PO 40 mg HS CURT Administration Donepezil HCl 10 mg 09/07/19 22:00 09/12/19 23:02 Aricept - PO 10 mg HS CURT Administration Enoxaparin Sodium 40 mg 09/08/19 10:00 09/13/19 09:09 Lovenox - SQ 40 mg DAILY CURT Administration Insulin Aspart 1 vial 09/09/19 11:45 09/13/19 12:08 Novolog Vial Sliding Scale - SQ 4 units ACHS CURT Administration Protocol Insulin Detemir 10 units 09/12/19 22:00 09/13/19 07:10 Levemir Vial SQ 10 unit BID@0700,2200 CURT Administration Levothyroxine Sodium 50 mcg 09/08/19 07:00 09/13/19 07:14 Synthroid - PO 50 mcg DAILY@0700 CURT Administration Memantine 10 mg 09/07/19 22:00 09/13/19 09:10 Namenda - PO 10 mg BID CURT Administration Metoprolol Succinate 50 mg 09/08/19 10:00 09/13/19 09:10 Toprol Xl - PO 50 mg DAILY CURT Administration Olanzapine 5 mg 09/08/19 22:00 09/13/19 09:10 Zyprexa - PO 5 mg BID CURT Administration AP: AMS UTI DM Hypothyroidism HTN BGM Q ACHS Continue Levemir 10 BID Change Novolog SS coverage Will not attempt tight control as food intake is inconsistent. Will monitor BGM on current regimen and adjust dose as necessary. Will F/U
[2019-09-13] MEDS: AMOXICILLIN 500 MG CAPSULE (FP) PO SCH ×2 (17:29→23:13)
[2019-09-13] MEDS: ACETAMINOPHEN 325 MG TABLET (FP) PO PRN (19:09)
--- NOTE | 2019-09-13 20:16 | EKG ---
Test Reason : Blood Pressure : / mmHG Vent. Rate : 112 BPM Atrial Rate : 112 BPM P-R Int : 180 ms QRS Dur : 122 ms QT Int : 330 ms P-R-T Axes : 033 -50 -16 degrees QTc Int : 450 ms SINUS TACHYCARDIA RIGHT BUNDLE BRANCH BLOCK LEFT ANTERIOR FASCICULAR BLOCK BIFASCICULAR BLOCK MINIMAL VOLTAGE CRITERIA FOR LVH, MAY BE NORMAL VARIANT ABNORMAL ECG WHEN COMPARED WITH ECG OF 09-SEP-2019 12:03, FUSION COMPLEXES ARE NO LONGER PRESENT PREMATURE VENTRICULAR COMPLEXES ARE NO LONGER PRESENT Confirmed by MD ANDRZEJ, ELLEN ([id number]) on 09/13/2019 8:15:51 PM Referred By: Leilani GUZMAN Confirmed By:ELLEN DONNELLY MD
[2019-09-13] MEDS: DONEPEZIL HCL 10 MG TABLET (FP) PO SCH (23:11)
[2019-09-13] MEDS: ATORVASTATIN CA 40 MG TABLET (FP) PO SCH (23:13)
[2019-09-14] MEDS: AMOXICILLIN 500 MG CAPSULE (FP) PO SCH ×2 (07:30→13:47)
[2019-09-14] MEDS: LEVOTHYROXINE NA 50 MCG TABLET (FP) PO SCH (07:31)
[2019-09-14] MEDS: INSULIN SLIDING SCALE (NOVOLOG) 1 VIAL SQ SCH ×4 (07:32→22:40)
[2019-09-14] MEDS: INSULIN (LEVEMIR) 100 UNITS/ML UNITS SQ SCH ×2 (07:34→22:40)
[2019-09-14 07:40] LABS: HEMOGLOBIN 11.7 GM/dL (10.7-15.3); MCHC 33.4 g/dl (32.0-36.0); MEAN CELL VOLUME 83.9 fl (80-96); MEAN PLT VOLUME 9.6 fl (7.5-11.1); PLATELET COUNT 325 K/MM3 (134-434); RBC 4.18 M/mm3 (3.60-5.2); RDW 14.6 % (11.6-15.6); WHITE BLOOD COUNT 8.8 K/mm3 (4.0-10.0)
[2019-09-14 08:07] LABS: ALBUMIN 2.7 g/dl (3.4-5.0); BILIRUBIN,DIRECT 0.1 mg/dL (0.0-0.2); BILIRUBIN,TOTAL 0.4 mg/dL (0.2-1); TOT PROT 6.5 g/dl (6.4-8.2)
[2019-09-14 08:08] LABS: ALBUMIN 2.6 g/dl (3.4-5.0); BILIRUBIN,TOTAL 0.6 mg/dL (0.2-1); BLOOD UREA NITROGEN 23.6 mg/dL (7-18); CALCIUM 8.9 mg/dL (8.5-10.1); CREATININE 0.8 mg/dL (0.55-1.3); POTASSIUM 3.6 mmol/L (3.5-5.1); TOT PROT 6.6 g/dl (6.4-8.2)
--- NOTE | 2019-09-14 09:17 | PN ---
Progress Note (short form) - Note Progress Note: In bed with breakfast tray Hasn't started eating yet Food intake fluctuating BGM 200s No hypos Vital Signs Period Temp Pulse Resp BP Sys/Aldridge Pulse Ox Last 24 Hr 98.5 F-100.9 F 105-119 18-18 127-144/77-82 96 PE: Awake, alert, confused Neck: Supple. No JVD HEENT: EOMI Lungs: CTA CVS: s1S2 Abd: Benign EXt: No edema CMP Sodium 140 mmol/L (136-145) 09/14/19 06:30 Potassium 3.6 mmol/L (3.5-5.1) 09/14/19 06:30 Chloride 105 mmol/L (98-107) 09/14/19 06:30 Carbon Dioxide 29 mmol/L (21-32) 09/14/19 06:30 Anion Gap 6 MMOL/L (8-16) L 09/14/19 06:30 BUN 23.6 mg/dL (7-18) H 09/14/19 06:30 Creatinine 0.8 mg/dL (0.55-1.3) 09/14/19 06:30 Est GFR (CKD-EPI)AfAm 81.84 09/14/19 06:30 Est GFR (CKD-EPI)NonAf 70.61 09/14/19 06:30 POC Glucometer 141 UNITS (80-120) 09/14/19 06:57 Random Glucose 147 mg/dL (74-106) H 09/14/19 06:30 Hemoglobin A1c % 8.5 % (4.2-6.3) H 09/10/19 07:30 Lactic Acid 1.4 mmol/L (0.4-2.0) 09/07/19 02:02 Calcium 8.9 mg/dL (8.5-10.1) 09/14/19 06:30 Total Bilirubin 0.6 mg/dL (0.2-1) 09/14/19 06:30 Direct Bilirubin 0.1 mg/dL (0.0-0.2) 09/14/19 06:30 GGT 43 U/L (5-85) 09/14/19 06:30 AST 35 U/L (15-37) 09/14/19 06:30 ALT 43 U/L (13-61) 09/14/19 06:30 Alkaline Phosphatase 113 U/L (45-117) 09/14/19 06:30 Total Protein 6.6 g/dl (6.4-8.2) 09/14/19 06:30 Albumin 2.6 g/dl (3.4-5.0) L 09/14/19 06:30 TSH 1.78 uIU/ml (0.358-3.74) 09/08/19 07:00 Current Medications Generic Name Dose Route Start Last Admin Trade Name Frelela PRN Reason Stop Dose Admin Acetaminophen 650 mg 09/13/19 14:55 09/13/19 19:09 Tylenol - PO 650 mg Q6H PRN Administration FEVER Amlodipine Besylate 10 mg 09/08/19 10:00 09/13/19 09:10 Norvasc - PO 10 mg DAILY CURT Administration Amoxicillin 500 mg 09/13/19 14:00 09/14/19 07:30 Amoxicillin - PO 500 mg TID CURT Administration Atorvastatin Calcium 40 mg 09/07/19 22:00 09/13/19 23:13 Lipitor - PO 40 mg HS CURT Administration Donepezil HCl 10 mg 09/07/19 22:00 09/13/19 23:11 Aricept - PO 10 mg HS CURT Administration Enoxaparin Sodium 40 mg 09/08/19 10:00 09/13/19 09:09 Lovenox - SQ 40 mg DAILY CURT Administration Insulin Aspart 1 vial 09/13/19 22:00 09/13/19 23:19 Novolog Vial Sliding Scale - SQ 6 unit HS CURT Administration Protocol Insulin Aspart 1 vial 09/13/19 16:30 09/14/19 07:32 Novolog Vial Sliding Scale - SQ Not Given TIDAC [facility] Protocol Insulin Detemir 10 units 09/12/19 22:00 09/14/19 07:34 Levemir Vial SQ 10 unit BID@0700,2200 CURT Administration Levothyroxine Sodium 50 mcg 09/08/19 07:00 09/14/19 07:31 Synthroid - PO 50 mcg DAILY@0700 CURT Administration Memantine 10 mg 09/07/19 22:00 09/13/19 23:12 Namenda - PO 10 mg BID CURT Administration Metoprolol Succinate 50 mg 09/08/19 10:00 09/13/19 09:10 Toprol Xl - PO 50 mg DAILY CURT Administration Olanzapine 5 mg 09/08/19 22:00 09/13/19 23:12 Zyprexa - PO 5 mg BID CURT Administration AP: AMS UTI DM Hypothyroidism HTN BGM Q ACHS Continue Levemir 10 BID Novolog SS coverage Will not attempt tight control as food intake is inconsistent. Will monitor BGM on current regimen and adjust dose as necessary. Nursing staff to help with feeding. Same discussed with nursing staff. Will F/U
--- NOTE | 2019-09-14 09:50 | PN ---
Progress Note, Physician Chief Complaint: AMS History of Present Illness: Previous notes and events reviewed awake and oriented x 1, confused NAD no leukocytosis afebrile tachycardia UC prelim positive - Current Medication List Current Medications: Active Medications Acetaminophen (Tylenol -) 650 mg PO Q6H PRN PRN Reason: FEVER Last Admin: 09/13/19 19:09 Dose: 650 mg Amlodipine Besylate (Norvasc -) 10 mg PO DAILY [facility] Last Admin: 09/13/19 09:10 Dose: 10 mg Amoxicillin (Amoxicillin -) 500 mg PO TID [facility] Last Admin: 09/14/19 07:30 Dose: 500 mg Atorvastatin Calcium (Lipitor -) 40 mg PO HS [facility] Last Admin: 09/13/19 23:13 Dose: 40 mg Donepezil HCl (Aricept -) 10 mg PO HS [facility] Last Admin: 09/13/19 23:11 Dose: 10 mg Enoxaparin Sodium (Lovenox -) 40 mg SQ DAILY [facility] Last Admin: 09/13/19 09:09 Dose: 40 mg Insulin Aspart (Novolog Vial Sliding Scale -) 1 vial SQ HS [facility]; Protocol Last Admin: 09/13/19 23:19 Dose: 6 unit Insulin Aspart (Novolog Vial Sliding Scale -) 1 vial SQ TIDAC [facility]; Protocol Last Admin: 09/14/19 07:32 Dose: Not Given Insulin Detemir (Levemir Vial) 10 units SQ BID@0700,2200 [facility] Last Admin: 09/14/19 07:34 Dose: 10 unit Levothyroxine Sodium (Synthroid -) 50 mcg PO DAILY@0700 [facility] Last Admin: 09/14/19 07:31 Dose: 50 mcg Memantine (Namenda -) 10 mg PO BID [facility] Last Admin: 09/13/19 23:12 Dose: 10 mg Metoprolol Succinate (Toprol Xl -) 50 mg PO DAILY [facility] Last Admin: 09/13/19 09:10 Dose: 50 mg Olanzapine (Zyprexa -) 5 mg PO BID [facility] Last Admin: 09/13/19 23:12 Dose: 5 mg - Objective Vital Signs: Vital Signs Temperature 98.5 F 09/14/19 06:00 Pulse Rate 107 H 09/14/19 06:00 Respiratory Rate 18 09/14/19 06:00 Blood Pressure 139/78 09/14/19 06:00 O2 Sat by Pulse Oximetry (%) 96 09/13/19 21:00 Constitutional: Yes: No Distress, Calm Eyes: Yes: Conjunctiva Clear HENT: Yes: Atraumatic Cardiovascular: Yes: Regular Rate and Rhythm Respiratory: Yes: Regular, CTA Bilaterally Gastrointestinal: Yes: Normal Bowel Sounds, Soft Musculoskeletal: Yes: Muscle Weakness Extremities: Yes: WNL Edema: No Neurological: Yes: Alert, Oriented (to self), Confusion Psychiatric: Yes: Alert, Oriented (to self) Labs: CBC, BMP 09/14/19 06:30 09/14/19 06:30 INR, PTT INR 0.91 (0.83-1.09) 09/07/19 02:02 Microbiology 09/10/19 11:45 Blood - Peripheral Venous Blood Culture - Final Bacillus Species, Not Antracis 09/10/19 11:55 Blood - Peripheral Venous Blood Culture - Preliminary NO GROWTH OBTAINED AFTER 72 HOURS, INCUBATION TO CONTINUE FOR 2 DAYS. 09/11/19 15:30 Urine - Urine Clean Catch Urine Culture - Preliminary Group D Strep Or Entero Coccus 09/07/19 05:15 Urine - Urine Clean Catch Urine Culture - Final NO GROWTH OBTAINED Problem List - Problems (1) Delirium Assessment/Plan: -Neurology on board -Psych on board -started on Olanzapine -Namenda and Aricept -Haldol discontinued -Head CT scan shows no acute intracranial pathology Code(s): R41.0 - DISORIENTATION, UNSPECIFIED (2) Confusion Assessment/Plan: -Neurology on board -Psych on board -Haldol discontinued -Head CT scan shows no acute intracranial pathology Code(s): R41.0 - DISORIENTATION, UNSPECIFIED (3) UTI (urinary tract infection) Assessment/Plan: -UA shows 3+ protein -UC neg -no leukocytosis -afebrile -repeat UC positive Code(s): N39.0 - URINARY TRACT INFECTION, SITE NOT SPECIFIED (4) HTN (hypertension) Assessment/Plan: -Amlodipine, Metoprolol -low Na diet Code(s): I10 - ESSENTIAL (PRIMARY) HYPERTENSION (5) HLD (hyperlipidemia) Assessment/Plan: -Atorvastatin Code(s): E78.5 - HYPERLIPIDEMIA, UNSPECIFIED (6) Hypothyroidism Assessment/Plan: -Levothyroxine Code(s): E03.9 - HYPOTHYROIDISM, UNSPECIFIED (7) Diabetes Assessment/Plan: -BGM ACHS -HgA1c 8.5% -ISS -Endocrinology consult -Levemir BID Code(s): E11.9 - TYPE 2 DIABETES MELLITUS WITHOUT COMPLICATIONS (8) Leukocytosis Assessment/Plan: -WBC 8.8 -repeat UC positive -ID on board -BC prelim positive x 1 -Abd US shows poor visualization of gallbladder, cholelithiasis cannot be excluded, prominent CBD 9mm, probable diffuse fatty infiltration of liver Code(s): D72.829 - ELEVATED WHITE BLOOD CELL COUNT, UNSPECIFIED (9) Tachycardia Assessment/Plan: -EKG reviewed -Cardiology on board Code(s): R00.0 - TACHYCARDIA, UNSPECIFIED (10) Dilated cbd, acquired Assessment/Plan: -Abd US shows poor visualization of gallbladder, cholelithiasis cannot be excluded, prominent CBD 9mm, probable diffuse fatty infiltration of liver -GI consult Code(s): K83.8 - OTHER SPECIFIED DISEASES OF BILIARY TRACT Assessment/Plan see problem list dvt ppx on PO ABT, d/c to SNF
--- NOTE | 2019-09-14 10:19 | PN.GI ---
GI Progress Note Subjective: Patient states feeling well, no abdominal pain ALP and GGT are normal - Objective Vital Signs: Vital Signs Temperature 98.5 F 09/14/19 06:00 Pulse Rate 107 H 09/14/19 06:00 Respiratory Rate 18 09/14/19 06:00 Blood Pressure 139/78 09/14/19 06:00 O2 Sat by Pulse Oximetry (%) 96 09/13/19 21:00 Constitutional: Calm Cardiovascular: Yes: Tachycardia Respiratory: Yes: Diminished (at bases bilaterally with poor insp effort) Gastrointestinal Inspection: No: Distention ...Auscultate: Yes: Normoactive Bowel Sounds ...Palpate: Yes: Soft. No: Hepatomegaly, Splenomegaly, Tenderness ...Percussion: No: Tympanitic Edema: No Labs: CBC, BMP 09/14/19 06:30 09/14/19 06:30 INR, PTT INR 0.91 (0.83-1.09) 09/07/19 02:02 Hepatic Panel Total Bilirubin 0.6 mg/dL (0.2-1) 09/14/19 06:30 Direct Bilirubin 0.1 mg/dL (0.0-0.2) 09/14/19 06:30 AST 35 U/L (15-37) 09/14/19 06:30 ALT 43 U/L (13-61) 09/14/19 06:30 Alkaline Phosphatase 113 U/L (45-117) 09/14/19 06:30 Albumin 2.6 g/dl (3.4-5.0) L 09/14/19 06:30 Laboratory Tests 09/14/19 06:30 GGT 43 Problem List - Problems (1) Common bile duct dilatation Assessment/Plan: LFTs normal as was GGT Dilated CBD appears chronic in nature MRCP when feasible Code(s): K83.8 - OTHER SPECIFIED DISEASES OF BILIARY TRACT
--- NOTE | 2019-09-14 10:22 | DS ---
Physical Examination Vital Signs: Vital Signs Temperature 98.5 F 09/14/19 06:00 Pulse Rate 107 H 09/14/19 06:00 Respiratory Rate 18 09/14/19 06:00 Blood Pressure 139/78 09/14/19 06:00 O2 Sat by Pulse Oximetry (%) 96 09/13/19 21:00 Findings/Remarks: Laboratory Results - last 24 hr 09/13/19 09/13/19 09/13/19 11:53 17:33 23:09 WBC RBC Hgb Hct MCV MCH MCHC RDW Plt Count MPV Sodium Potassium Chloride Carbon Dioxide Anion Gap BUN Creatinine Est GFR (CKD-EPI)AfAm Est GFR (CKD-EPI)NonAf POC Glucometer 288 288 302 Random Glucose Calcium Total Bilirubin Direct Bilirubin GGT AST ALT Alkaline Phosphatase Total Protein Albumin 09/14/19 09/14/19 09/14/19 06:30 06:30 06:30 WBC 8.8 RBC 4.18 Hgb 11.7 Hct 35.0 MCV 83.9 MCH 28.0 MCHC 33.4 RDW 14.6 Plt Count 325 MPV 9.6 Sodium 140 Potassium 3.6 Chloride 105 Carbon Dioxide 29 Anion Gap 6 L BUN 23.6 H Creatinine 0.8 Est GFR (CKD-EPI)AfAm 81.84 Est GFR (CKD-EPI)NonAf 70.61 POC Glucometer Random Glucose 147 H Calcium 8.9 Total Bilirubin 0.6 0.4 Direct Bilirubin 0.1 GGT 43 AST 35 36 ALT 43 43 Alkaline Phosphatase 113 114 Total Protein 6.6 6.5 Albumin 2.6 L 2.7 L 09/14/19 06:57 WBC RBC Hgb Hct MCV MCH MCHC RDW Plt Count MPV Sodium Potassium Chloride Carbon Dioxide Anion Gap BUN Creatinine Est GFR (CKD-EPI)AfAm Est GFR (CKD-EPI)NonAf POC Glucometer 141 Random Glucose Calcium Total Bilirubin Direct Bilirubin GGT AST ALT Alkaline Phosphatase Total Protein Albumin Home Medication List Medication Instructions Recorded Confirmed Type Atorvastatin Ca [Lipitor] 40 mg PO HS 04/28/17 09/07/19 History Insulin (Novolog 70/30) [Novolog 10 units SQ BID 04/28/17 09/07/19 History Mix 70/30 Flexpen -] Donepezil HCl [Aricept] 10 mg PO DAILY 12/17/17 09/07/19 History Amlodipine Besylate 10 mg PO DAILY 09/07/19 09/07/19 History Levothyroxine [Synthroid -] 50 mcg PO DAILY 09/07/19 09/07/19 History Memantine HCl 10 mg PO BID 09/07/19 09/07/19 History Metoprolol Succinate [Toprol XL -] 50 mg PO DAILY 09/07/19 09/07/19 History Mirtazapine 30 mg PO HS 09/07/19 09/07/19 History Active Medications Generic Name Dose Route Start Last Admin Trade Name Fre PRN Reason Stop Dose Admin Acetaminophen 650 mg 09/13/19 14:55 09/13/19 19:09 Tylenol - PO 650 mg Q6H PRN Administration FEVER Amlodipine Besylate 10 mg 09/08/19 10:00 09/13/19 09:10 Norvasc - PO 10 mg DAILY CURT Administration Amoxicillin 500 mg 09/13/19 14:00 09/14/19 07:30 Amoxicillin - PO 500 mg TID CURT Administration Atorvastatin Calcium 40 mg 09/07/19 22:00 09/13/19 23:13 Lipitor - PO 40 mg HS CURT Administration Donepezil HCl 10 mg 09/07/19 22:00 09/13/19 23:11 Aricept - PO 10 mg HS CURT Administration Enoxaparin Sodium 40 mg 09/08/19 10:00 09/13/19 09:09 Lovenox - SQ 40 mg DAILY CURT Administration Insulin Aspart 1 vial 09/13/19 22:00 09/13/19 23:19 Novolog Vial Sliding Scale - SQ 6 unit HS CURT Administration Protocol Insulin Aspart 1 vial 09/13/19 16:30 09/14/19 07:32 Novolog Vial Sliding Scale - SQ Not Given TIDAC [facility] Protocol Insulin Detemir 10 units 09/12/19 22:00 09/14/19 07:34 Levemir Vial SQ 10 unit BID@0700,2200 CURT Administration Levothyroxine Sodium 50 mcg 09/08/19 07:00 09/14/19 07:31 Synthroid - PO 50 mcg DAILY@0700 CURT Administration Memantine 10 mg 09/07/19 22:00 09/13/19 23:12 Namenda - PO 10 mg BID CURT Administration Metoprolol Succinate 50 mg 09/08/19 10:00 09/13/19 09:10 Toprol Xl - PO 50 mg DAILY CURT Administration Olanzapine 5 mg 09/08/19 22:00 09/13/19 23:12 Zyprexa - PO 5 mg BID CURT Administration Microbiology 09/10/19 11:45 Blood - Peripheral Venous Blood Culture - Final Bacillus Species, Not Antracis 09/10/19 11:55 Blood - Peripheral Venous Blood Culture - Preliminary NO GROWTH OBTAINED AFTER 72 HOURS, INCUBATION TO CONTINUE FOR 2 DAYS. 09/11/19 15:30 Urine - Urine Clean Catch Urine Culture - Preliminary Group D Strep Or Entero Coccus 09/07/19 05:15 Urine - Urine Clean Catch Urine Culture - Final NO GROWTH OBTAINED Constitutional: Yes: No Distress, Calm Eyes: Yes: Conjunctiva Clear HENT: Yes: Atraumatic Cardiovascular: Yes: Regular Rate and Rhythm Respiratory: Yes: Regular, CTA Bilaterally Gastrointestinal: Yes: Normal Bowel Sounds, Soft Musculoskeletal: Yes: Muscle Weakness Extremities: Yes: WNL Edema: No Neurological: Yes: Alert, Oriented (to self), Confusion Psychiatric: Yes: Alert, Oriented (to self) Labs: CBC, BMP 09/14/19 06:30 09/14/19 06:30 Discharge Summary Problems reviewed: Yes Reason For Visit: DELIRIUM Current Active Problems AMS (altered mental status) (Acute) Agitation (Acute) Common bile duct dilatation (Acute) Delirium (Acute) Dementia (Acute) Dilated cbd, acquired (Acute) HLD (hyperlipidemia) (Acute) HTN (hypertension) (Acute) Hypothyroidism (Acute) Leukocytosis (Acute) Tachycardia (Acute) Hospital Course: The patient is a 79 year old female with a significant past medical history of depression, dementia, Alzheimer's, IDDM, hypertension, hyperlipidemia and arthritis who presents to the ED BIBA for AMS. EMS reports daughter called the ambulance. Patient is not able to contribute to history due to her clinical condition. Pt has a swollen hand and forearm with bruising and when asked about it, patient points to hand and starts crying. While in-patient followed by ID, noted to have leukocytosis and intermittent episodes of fever. UC positive and started on Amoxicillin 500mg TID x 7 days. Evaluated by Neurology and Psychiatry while in-patient and medication regimen adjustment made. Head CT scan shows no acute pathology noted. Condition: Stable - Instructions Diet, Activity, Other Instructions: Follow up with PMD in 2 weeks of discharge Follow up with Dr Presley for DM management Follow up with Neurologist Dr Oliva for Dementia Follow up [facility] Dr Perez for dilated CBD UC positive and stared on Amoxicillin 500mg TID x 7 days continue with medication regimen as prescribed return to ER if develop severe pain, respiratory distress chest pain, AMS Referrals: Janusz Oliva MD [Staff Physician] - Rick Perez DO [Staff Physician] - Prasanth Urbina [Primary Care Provider] - Katlyn Cooper MD [Staff Physician] - Disposition: [facility] - Home Medications Comprehensive Discharge Medication List: Ambulatory Orders Atorvastatin Ca [Lipitor] 40 mg PO HS 04/28/17 Insulin (Novolog 70/30) [Novolog Mix 70/30 Flexpen -] 10 units SQ BID 04/28/17 Donepezil HCl [Aricept] 10 mg PO DAILY 12/17/17 Amlodipine Besylate 10 mg PO DAILY 09/07/19 Levothyroxine [Synthroid -] 50 mcg PO DAILY 09/07/19 Memantine HCl 10 mg PO BID 09/07/19 Metoprolol Succinate [Toprol XL -] 50 mg PO DAILY 09/07/19 Mirtazapine 30 mg PO HS 09/07/19 Acetaminophen [Tylenol .Regular Strength -] 650 mg PO Q6H PRN tablet 09/14/19 Amoxicillin - [Amoxicillin 500mg Capsule -] 500 mg PO TID 7 Days capsule Enoxaparin [Lovenox -] 40 mg SQ DAILY disp.syrin 09/14/19 Insulin (Levemir) [Levemir Vial] 10 units SQ BID@0700,2200 units 09/14/19 Insulin Sliding Scale [Novolog Vial Sliding Scale -] 1 vial SQ ACHS units 09/14 Olanzapine [Zyprexa -] 5 mg PO BID tablet 09/14/19
[2019-09-14] MEDS: MEMANTINE HCL 10 MG TABLET (FP) PO SCH ×2 (10:24→22:37)
[2019-09-14] MEDS: ENOXAPARIN NA (PORCINE) 40 MG/0.4 ML DISP.SYRIN SQ SCH (10:25)
[2019-09-14] MEDS: OLANZapine 5 MG TABLET PO SCH ×2 (10:25→22:37)
[2019-09-14] MEDS: amLODIPine BESYLATE 10 MG TABLET (FP) PO SCH (10:25)
[2019-09-14] MEDS: ACETAMINOPHEN 325 MG TABLET (FP) PO PRN (11:00)
[2019-09-14] MEDS ORDERED: PT OWN MED DRAWER 7, Y5N ONE (13:35)
[2019-09-14] MEDS: ATORVASTATIN CA 40 MG TABLET (FP) PO SCH (22:37)
[2019-09-14] MEDS: DONEPEZIL HCL 10 MG TABLET (FP) PO SCH (22:37)
[2019-09-15] MEDS: INSULIN SLIDING SCALE (NOVOLOG) 1 VIAL SQ SCH ×4 (06:05→23:25)
[2019-09-15] MEDS: LEVOTHYROXINE NA 50 MCG TABLET (FP) PO SCH (06:05)
[2019-09-15] MEDS: AMOXICILLIN 500 MG CAPSULE (FP) PO SCH ×4 (06:05→22:58)
[2019-09-15] MEDS: INSULIN (LEVEMIR) 100 UNITS/ML UNITS SQ SCH ×2 (06:06→23:25)
[2019-09-15] MEDS: ACETAMINOPHEN 325 MG TABLET (FP) PO PRN (10:28)
[2019-09-15] MEDS: ENOXAPARIN NA (PORCINE) 40 MG/0.4 ML DISP.SYRIN SQ SCH (10:28)
[2019-09-15] MEDS: amLODIPine BESYLATE 10 MG TABLET (FP) PO SCH (10:29)
[2019-09-15] MEDS: MEMANTINE HCL 10 MG TABLET (FP) PO SCH ×2 (10:29→22:59)
[2019-09-15] MEDS: OLANZapine 5 MG TABLET PO SCH ×2 (10:29→22:59)
--- NOTE | 2019-09-15 10:30 | PN ---
Progress Note, Physician Chief Complaint: AMS Agitation Bacteremia UTI History of Present Illness: NAD No restraints BC: Microbiology 09/11/19 15:30 Urine - Urine Clean Catch Urine Culture - Final Enterococcus Faecalis 09/10/19 11:55 Blood - Peripheral Venous Blood Culture - Preliminary NO GROWTH OBTAINED AFTER 96 HOURS, INCUBATION TO CONTINUE FOR 1 DAYS. 09/10/19 11:45 Blood - Peripheral Venous Blood Culture - Final Bacillus Species, Not Antracis 09/07/19 05:15 Urine - Urine Clean Catch Urine Culture - Final NO GROWTH OBTAINED On PO amoxicillin - Current Medication List Current Medications: Active Medications Acetaminophen (Tylenol -) 650 mg PO Q6H PRN PRN Reason: FEVER Last Admin: 09/14/19 11:00 Dose: 650 mg Amlodipine Besylate (Norvasc -) 10 mg PO DAILY [facility] Last Admin: 09/14/19 10:25 Dose: 10 mg Amoxicillin (Amoxicillin -) 500 mg PO TID [facility] Last Admin: 09/15/19 06:05 Dose: 500 mg Atorvastatin Calcium (Lipitor -) [address] [facility] Last Admin: 09/14/19 22:37 Dose: 40 mg Donepezil HCl (Aricept -) 10 mg PO HS [facility] Last Admin: 09/14/19 22:37 Dose: 10 mg Enoxaparin Sodium (Lovenox -) 40 mg SQ DAILY [facility] Last Admin: 09/14/19 10:25 Dose: 40 mg Insulin Aspart (Novolog Vial Sliding Scale -) 1 vial SQ HS [facility]; Protocol Last Admin: 09/14/19 22:40 Dose: 4 unit Insulin Aspart (Novolog Vial Sliding Scale -) 1 vial SQ TIDAC [facility]; Protocol Last Admin: 09/15/19 06:05 Dose: 4 units Insulin Detemir (Levemir Vial) 10 units SQ BID@0700,2200 [facility] Last Admin: 09/15/19 06:06 Dose: 10 unit Levothyroxine Sodium (Synthroid -) 50 mcg PO DAILY@0700 [facility] Last Admin: 09/15/19 06:05 Dose: 50 mcg Memantine (Namenda -) 10 mg PO BID [facility] Last Admin: 09/14/19 22:37 Dose: 10 mg Metoprolol Succinate (Toprol Xl -) 50 mg PO DAILY [facility] Last Admin: 09/14/19 10:24 Dose: 50 mg Olanzapine (Zyprexa -) 5 mg PO BID [facility] Last Admin: 09/14/19 22:37 Dose: 5 mg - Objective Vital Signs: Vital Signs Temperature 98.1 F 09/15/19 03:00 Pulse Rate 114 H 09/15/19 03:00 Respiratory Rate 18 09/15/19 03:00 Blood Pressure 159/71 09/15/19 03:00 O2 Sat by Pulse Oximetry (%) 96 09/14/19 21:00 Constitutional: Yes: Well Nourished, No Distress, Calm Cardiovascular: Yes: Regular Rate and Rhythm Respiratory: Yes: Regular Gastrointestinal: Yes: WNL Genitourinary: Yes: WNL Musculoskeletal: Yes: Muscle Weakness Extremities: Yes: WNL Edema: No Peripheral Pulses WNL: Yes Neurological: Yes: Pre-Existing Deficit Labs: CBC, BMP 09/14/19 06:30 09/14/19 06:30 INR, PTT INR 0.91 (0.83-1.09) 09/07/19 02:02 Problem List - Problems (1) AMS (altered mental status) Assessment/Plan: -Neurology on board -Psych on board -started on Olanzapine -Head CT scan shows no acute intracranial pathology -2/2 to metabolic encephalopathy-due to bacteremia+ UTI Problems reviewed: Yes Code(s): R41.82 - ALTERED MENTAL STATUS, UNSPECIFIED (2) Agitation Assessment/Plan: -[place] vest discontinued -On olanzapine -Psych on board Problems reviewed: Yes Code(s): R45.1 - RESTLESSNESS AND AGITATION (3) Dementia Problems reviewed: Yes Code(s): F03.90 - UNSPECIFIED DEMENTIA WITHOUT BEHAVIORAL DISTURBANCE (4) HTN (hypertension) Assessment/Plan: -Continue home meds -monitor trend Problems reviewed: Yes Code(s): I10 - ESSENTIAL (PRIMARY) HYPERTENSION (5) Leukocytosis Assessment/Plan: -resolved Problems reviewed: Yes Code(s): D72.829 - ELEVATED WHITE BLOOD CELL COUNT, UNSPECIFIED (6) Common bile duct dilatation Assessment/Plan: -Seen by GI -MRCP o/p -GI f/u O/P Problems reviewed: Yes Code(s): K83.8 - OTHER SPECIFIED DISEASES OF BILIARY TRACT (7) Diabetes Assessment/Plan: -A1c at 8.5 -Seen by Endocrinology -BGM HS -ISS -Levemir 10 U BID -Low sodium diabetic diet Problems reviewed: Yes Code(s): E11.9 - TYPE 2 DIABETES MELLITUS WITHOUT COMPLICATIONS Assessment/Plan see problem list D/C to SNF
--- NOTE | 2019-09-15 10:32 | PN ---
Progress Note (short form) - Note Progress Note: No abdominal pain to report. VS's stable Abd soft, ND/NT without tenderness or distension. Normal liver chems at this time Etiology of chronically dilated CBD remains uncertain at this time Favor MRCP for evaluation.
--- NOTE | 2019-09-15 13:18 | PN ---
Progress Note (short form) - Note Progress Note: In bed with lunch tray Hasn't started eating yet Food intake fluctuating BGM 200s Lowest FS 68 yesterday Vital Signs Period Temp Pulse Resp BP Sys/Aldridge Pulse Ox Last 24 Hr 98 F-99.2 F 98-116 18-20 116-159/59-74 96 PE: Awake, confused Neck: Supple. No JVD HEENT: EOMI Lungs: CTA CVS: s1S2 Abd: Benign EXt: No edema CMP Sodium 140 mmol/L (136-145) 09/14/19 06:30 Potassium 3.6 mmol/L (3.5-5.1) 09/14/19 06:30 Chloride 105 mmol/L (98-107) 09/14/19 06:30 Carbon Dioxide 29 mmol/L (21-32) 09/14/19 06:30 Anion Gap 6 MMOL/L (8-16) L 09/14/19 06:30 BUN 23.6 mg/dL (7-18) H 09/14/19 06:30 Creatinine 0.8 mg/dL (0.55-1.3) 09/14/19 06:30 Est GFR (CKD-EPI)AfAm 81.84 09/14/19 06:30 Est GFR (CKD-EPI)NonAf 70.61 09/14/19 06:30 POC Glucometer 386 UNITS (80-120) 09/15/19 12:01 Random Glucose 147 mg/dL (74-106) H 09/14/19 06:30 Hemoglobin A1c % 8.5 % (4.2-6.3) H 09/10/19 07:30 Lactic Acid 1.4 mmol/L (0.4-2.0) 09/07/19 02:02 Calcium 8.9 mg/dL (8.5-10.1) 09/14/19 06:30 Total Bilirubin 0.6 mg/dL (0.2-1) 09/14/19 06:30 Direct Bilirubin 0.1 mg/dL (0.0-0.2) 09/14/19 06:30 GGT 43 U/L (5-85) 09/14/19 06:30 AST 35 U/L (15-37) 09/14/19 06:30 ALT 43 U/L (13-61) 09/14/19 06:30 Alkaline Phosphatase 113 U/L (45-117) 09/14/19 06:30 Total Protein 6.6 g/dl (6.4-8.2) 09/14/19 06:30 Albumin 2.6 g/dl (3.4-5.0) L 09/14/19 06:30 TSH 1.78 uIU/ml (0.358-3.74) 09/08/19 07:00 Current Medications Generic Name Dose Route Start Last Admin Trade Name Freq PRN Reason Stop Dose Admin Acetaminophen 650 mg 09/13/19 14:55 09/15/19 10:28 Tylenol - PO 650 mg Q6H PRN Administration FEVER Amlodipine Besylate 10 mg 09/08/19 10:00 09/15/19 10:29 Norvasc - PO 10 mg DAILY [facility] Administration Amoxicillin 500 mg 09/13/19 14:00 09/15/19 06:05 Amoxicillin - PO 500 mg TID [facility] Administration Atorvastatin Calcium 40 mg 09/07/19 22:00 09/14/19 22:37 Lipitor - PO 40 mg HS [facility] Administration Donepezil HCl 10 mg 09/07/19 22:00 09/14/19 22:37 Aricept - PO 10 mg HS [facility] Administration Enoxaparin Sodium 40 mg 09/08/19 10:00 09/15/19 10:28 Lovenox - SQ 40 mg DAILY [facility] Administration Insulin Aspart 1 vial 09/13/19 22:00 09/14/19 22:40 Novolog Vial Sliding Scale - SQ 4 unit HS [facility] Administration Protocol Insulin Aspart 1 vial 09/13/19 16:30 09/15/19 12:05 Novolog Vial Sliding Scale - SQ 10 units TIDAC [facility] Administration Protocol Insulin Detemir 10 units 09/12/19 22:00 09/15/19 06:06 Levemir Vial SQ 10 unit BID@0700,2200 [facility] Administration Levothyroxine Sodium 50 mcg 09/08/19 07:00 09/15/19 06:05 Synthroid - PO 50 mcg DAILY@0700 [facility] Administration Memantine 10 mg 09/07/19 22:00 09/15/19 10:29 Namenda - PO 10 mg BID [facility] Administration Metoprolol Succinate 50 mg 09/08/19 10:00 09/15/19 10:29 Toprol Xl - PO 50 mg DAILY [facility] Administration Olanzapine 5 mg 09/08/19 22:00 09/15/19 10:29 Zyprexa - PO 5 mg BID [facility] Administration AP: AMS UTI DM Hypothyroidism HTN BGM Q ACHS Continue Levemir 10 BID Novolog SS coverage. Discussed with Nursing staff to give Novolog only after pt eats. To give full dose novolog if food intake is >75% of tray and only 50% of Novolog dose if pt eats <50%. Will not attempt tight control as food intake is inconsistent. Will monitor BGM on current regimen and adjust dose as necessary. Nursing staff to help with feeding. Same discussed with nursing staff. Will F/U
--- NOTE | 2019-09-15 13:40 | PN ---
Progress Note (short form) - Note Progress Note: 79 year old female history of Depression, dementia, IDDM,HTN,HLD. Patient was brought to hospital for hospital for agitation and confusion. She was not able to give any history, she was given ativan and pateint is sleepy druing interview. Patient came by ambulance, There is no fever, trauma, cancer .There is no difficulty of weakness, tingling and numbness. She has ct head is unremarkable. no new complain, progress noted in last few days Neurological examination Alert oriented x 1, able to talk and confused, she seems to be comfortable no twitching or facial droop noticed eomi, pupils reactive no neck stiffness moving all ext ct head unremarkable Assessment/Plan 79 year old female history of Depression, dementia, IDDM,HTN, HLD. Patient was brought to hospital for hospital for agitation and confusion. delirium secondary to dementia Plan . - continue supportive care, and diabetic care - continue zyprexa - continue aricpet and namenda waiting for placement Thanking you so much Jacqui Oliva MD
[2019-09-15] MEDS ORDERED: PT OWN MED DRAWER 7, Y5N ONE ×2 (13:41→18:44)
[2019-09-15] MEDS: DONEPEZIL HCL 10 MG TABLET (FP) PO SCH (22:59)
[2019-09-15] MEDS: ATORVASTATIN CA 40 MG TABLET (FP) PO SCH (23:00)
[2019-09-16] MEDS ORDERED: PT OWN MED DRAWER 7, Y5N ONE ×3 (06:30→23:18)
[2019-09-16] MEDS: INSULIN (LEVEMIR) 100 UNITS/ML UNITS SQ SCH (06:45)
[2019-09-16] MEDS: AMOXICILLIN 500 MG CAPSULE (FP) PO SCH ×3 (06:47→23:22)
[2019-09-16] MEDS: LEVOTHYROXINE NA 50 MCG TABLET (FP) PO SCH (06:47)
--- NOTE | 2019-09-16 09:01 | PN ---
Progress Note, Physician Chief Complaint: AMS Agitation Bacteremia UTI History of Present Illness: NAD No restraints BC: Microbiology 09/11/19 15:30 Urine - Urine Clean Catch Urine Culture - Final Enterococcus Faecalis 09/10/19 11:55 Blood - Peripheral Venous Blood Culture - Preliminary NO GROWTH OBTAINED AFTER 96 HOURS, INCUBATION TO CONTINUE FOR 1 DAYS. 09/10/19 11:45 Blood - Peripheral Venous Blood Culture - Final Bacillus Species, Not Antracis 09/07/19 05:15 Urine - Urine Clean Catch Urine Culture - Final NO GROWTH OBTAINED On PO amoxicillin Pt's daughter unable to take pt home until 09/18/19-she is away to [place] until that date. Communicated with D/C community planner. - Current Medication List Current Medications: Active Medications Acetaminophen (Tylenol -) 650 mg PO Q6H PRN PRN Reason: FEVER Last Admin: 09/15/19 10:28 Dose: 650 mg Amlodipine Besylate (Norvasc -) 10 mg PO DAILY [facility] Last Admin: 09/15/19 10:29 Dose: 10 mg Amoxicillin (Amoxicillin -) 500 mg PO TID [facility] Last Admin: 09/16/19 06:47 Dose: 500 mg Atorvastatin Calcium (Lipitor -) 40 mg PO HS [facility] Last Admin: 09/15/19 23:00 Dose: 40 mg Donepezil HCl (Aricept -) 10 mg PO [facility] Last Admin: 09/15/19 22:59 Dose: 10 mg Enoxaparin Sodium (Lovenox -) 40 mg SQ DAILY [facility] Last Admin: 09/15/19 10:28 Dose: 40 mg Insulin Aspart (Novolog Vial Sliding Scale -) 1 vial SQ HS [facility]; Protocol Last Admin: 09/15/19 23:25 Dose: Not Given Insulin Aspart (Novolog Vial Sliding Scale -) 1 vial SQ TIDAC [facility]; Protocol Last Admin: 09/15/19 18:40 Dose: 6 units Insulin Detemir (Levemir Vial) 10 units SQ BID@0700,2200 [facility] Last Admin: 09/16/19 06:45 Dose: 10 unit Levothyroxine Sodium (Synthroid -) 50 mcg PO DAILY@0700 [facility] Last Admin: 09/16/19 06:47 Dose: 50 mcg Memantine (Namenda -) 10 mg PO BID [facility] Last Admin: 09/15/19 22:59 Dose: 10 mg Metoprolol Succinate (Toprol Xl -) 50 mg PO DAILY [facility] Last Admin: 09/15/19 10:29 Dose: 50 mg Olanzapine (Zyprexa -) 5 mg PO BID [facility] Last Admin: 09/15/19 22:59 Dose: 5 mg - Objective Vital Signs: Vital Signs Temperature 98.5 F 09/16/19 06:00 Pulse Rate 103 H 09/16/19 06:00 Respiratory Rate 20 09/16/19 06:00 Blood Pressure 149/73 09/16/19 06:00 O2 Sat by Pulse Oximetry (%) 96 09/15/19 09:00 Constitutional: Yes: Well Nourished, No Distress, Calm Cardiovascular: Yes: Regular Rate and Rhythm Respiratory: Yes: Regular Gastrointestinal: Yes: Normal Bowel Sounds, Soft Genitourinary: Yes: Incontinence Musculoskeletal: Yes: WNL Extremities: Yes: WNL Edema: No Peripheral Pulses WNL: Yes Neurological: Yes: Alert, Pre-Existing Deficit Psychiatric: Yes: Alert Labs: CBC, BMP 09/14/19 06:30 09/14/19 06:30 INR, PTT INR 0.91 (0.83-1.09) 09/07/19 02:02 Problem List - Problems (1) AMS (altered mental status) Assessment/Plan: -Neurology on board -Psych on board -started on Olanzapine -Head CT scan shows no acute intracranial pathology -2/2 to metabolic encephalopathy-due to bacteremia+ UTI Problems reviewed: Yes Code(s): R41.82 - ALTERED MENTAL STATUS, UNSPECIFIED (2) Agitation Assessment/Plan: -[place] vest discontinued -On olanzapine -Psych on board Problems reviewed: Yes Code(s): R45.1 - RESTLESSNESS AND AGITATION (3) Dementia Problems reviewed: Yes Code(s): F03.90 - UNSPECIFIED DEMENTIA WITHOUT BEHAVIORAL DISTURBANCE (4) HTN (hypertension) Assessment/Plan: -Continue home meds -monitor trend Problems reviewed: Yes Code(s): I10 - ESSENTIAL (PRIMARY) HYPERTENSION (5) Leukocytosis Assessment/Plan: -resolved Problems reviewed: Yes Code(s): D72.829 - ELEVATED WHITE BLOOD CELL COUNT, UNSPECIFIED (6) Common bile duct dilatation Assessment/Plan: -Seen by GI -MRCP o/p -GI f/u O/P Problems reviewed: Yes Code(s): K83.8 - OTHER SPECIFIED DISEASES OF BILIARY TRACT (7) Diabetes Assessment/Plan: -A1c at 8.5 -Seen by Endocrinology -BGM AC -ISS -Levemir 10 U BID -Low sodium diabetic diet Problems reviewed: Yes Code(s): E11.9 - TYPE 2 DIABETES MELLITUS WITHOUT COMPLICATIONS Assessment/Plan see problem list Daughter wants to take pt home
[2019-09-16] MEDS ORDERED: INSULIN (NOVOLOG) ASPART 100 UNITS/ML 10ML VIAL ONE (09:42)
[2019-09-16] MEDS: OLANZapine 5 MG TABLET PO SCH ×2 (09:45→23:22)
[2019-09-16] MEDS: amLODIPine BESYLATE 10 MG TABLET (FP) PO SCH (09:45)
[2019-09-16] MEDS: MEMANTINE HCL 10 MG TABLET (FP) PO SCH ×2 (09:45→23:22)
[2019-09-16] MEDS: ENOXAPARIN NA (PORCINE) 40 MG/0.4 ML DISP.SYRIN SQ SCH (09:45)
[2019-09-16] MEDS: INSULIN SLIDING SCALE (NOVOLOG) 1 VIAL SQ SCH ×3 (09:46→16:49)
--- NOTE | 2019-09-16 11:28 | PN ---
Progress Note (short form) - Note Progress Note: Awake but confused Food intake fluctuating BGM 200s No hypos Vital Signs Period Temp Pulse Resp BP Sys/Aldridge Pulse Ox Last 24 Hr 97.8 F-98.7 F 101-103 20-20 146-149/68-73 PE: Awake, confused Neck: Supple. No JVD HEENT: EOMI Lungs: CTA CVS: s1S2 Abd: Benign EXt: No edema CMP Sodium 140 mmol/L (136-145) 09/14/19 06:30 Potassium 3.6 mmol/L (3.5-5.1) 09/14/19 06:30 Chloride 105 mmol/L (98-107) 09/14/19 06:30 Carbon Dioxide 29 mmol/L (21-32) 09/14/19 06:30 Anion Gap 6 MMOL/L (8-16) L 09/14/19 06:30 BUN 23.6 mg/dL (7-18) H 09/14/19 06:30 Creatinine 0.8 mg/dL (0.55-1.3) 09/14/19 06:30 Est GFR (CKD-EPI)AfAm 81.84 09/14/19 06:30 Est GFR (CKD-EPI)NonAf 70.61 09/14/19 06:30 POC Glucometer 274 UNITS (80-120) 09/16/19 06:36 Random Glucose 147 mg/dL (74-106) H 09/14/19 06:30 Hemoglobin A1c % 8.5 % (4.2-6.3) H 09/10/19 07:30 Lactic Acid 1.4 mmol/L (0.4-2.0) 09/07/19 02:02 Calcium 8.9 mg/dL (8.5-10.1) 09/14/19 06:30 Total Bilirubin 0.6 mg/dL (0.2-1) 09/14/19 06:30 Direct Bilirubin 0.1 mg/dL (0.0-0.2) 09/14/19 06:30 GGT 43 U/L (5-85) 09/14/19 06:30 AST 35 U/L (15-37) 09/14/19 06:30 ALT 43 U/L (13-61) 09/14/19 06:30 Alkaline Phosphatase 113 U/L (45-117) 09/14/19 06:30 Total Protein 6.6 g/dl (6.4-8.2) 09/14/19 06:30 Albumin 2.6 g/dl (3.4-5.0) L 09/14/19 06:30 TSH 1.78 uIU/ml (0.358-3.74) 09/08/19 07:00 Current Medications Generic Name Dose Route Start Last Admin Trade Name Freq PRN Reason Stop Dose Admin Acetaminophen 650 mg 09/13/19 14:55 09/15/19 10:28 Tylenol - PO 650 mg Q6H PRN Administration FEVER Amlodipine Besylate 10 mg 09/08/19 10:00 09/16/19 09:45 Norvasc - PO 10 mg DAILY [facility] Administration Amoxicillin 500 mg 09/13/19 14:00 09/16/19 06:47 Amoxicillin - PO 500 mg TID [facility] Administration Atorvastatin Calcium 40 mg 09/07/19 22:00 09/15/19 23:00 Lipitor - PO 40 mg HS [facility] Administration Donepezil HCl 10 mg 09/07/19 22:00 09/15/19 22:59 Aricept - PO 10 mg HS [facility] Administration Enoxaparin Sodium 40 mg 09/08/19 10:00 09/16/19 09:45 Lovenox - SQ 40 mg DAILY [facility] Administration Insulin Aspart 1 vial 09/13/19 22:00 09/15/19 23:25 Novolog Vial Sliding Scale - SQ Not Given HS [facility] Protocol Insulin Aspart 1 vial 09/15/19 13:19 09/16/19 09:46 Novolog Vial Sliding Scale - SQ 6 units TIDAC [facility] Administration Protocol Insulin Detemir 10 units 09/12/19 22:00 09/16/19 06:45 Levemir Vial SQ 10 unit BID@0700,2200 [facility] Administration Levothyroxine Sodium 50 mcg 09/08/19 07:00 09/16/19 06:47 Synthroid - PO 50 mcg DAILY@0700 [facility] Administration Memantine 10 mg 09/07/19 22:00 09/16/19 09:45 Namenda - PO 10 mg BID [facility] Administration Metoprolol Succinate 50 mg 09/08/19 10:00 09/16/19 09:45 Toprol Xl - PO 50 mg DAILY [facility] Administration Olanzapine 5 mg 09/08/19 22:00 09/16/19 09:45 Zyprexa - PO 5 mg BID [facility] Administration AP: AMS UTI DM Hypothyroidism HTN BGM Q ACHS Continue Levemir 10 BID Continue Novolog SS coverage. Discussed with Nursing staff to give Novolog only after pt eats. To give full dose novolog if food intake is >75% of tray and only 50% of Novolog dose if pt eats <50%. Will not attempt tight control as food intake is inconsistent. Will monitor BGM on current regimen and adjust dose as necessary. Nursing staff to help with feeding. Same discussed with nursing staff. Will F/U
[2019-09-16] MEDS: DONEPEZIL HCL 10 MG TABLET (FP) PO SCH (23:23)
[2019-09-17] MEDS: INSULIN (LEVEMIR) 100 UNITS/ML UNITS SQ SCH ×2 (00:50→06:57)
[2019-09-17] MEDS: ATORVASTATIN CA 40 MG TABLET (FP) PO SCH (00:50)
[2019-09-17] MEDS: INSULIN SLIDING SCALE (NOVOLOG) 1 VIAL SQ SCH ×3 (00:50→17:23)
[2019-09-17] MEDS: ACETAMINOPHEN 325 MG TABLET (FP) PO PRN ×2 (06:51→17:02)
[2019-09-17] MEDS: LEVOTHYROXINE NA 50 MCG TABLET (FP) PO SCH (06:52)
[2019-09-17] MEDS: AMOXICILLIN 500 MG CAPSULE (FP) PO SCH ×2 (06:53→14:53)
[2019-09-17] MEDS: MEMANTINE HCL 10 MG TABLET (FP) PO SCH (09:42)
[2019-09-17] MEDS: OLANZapine 5 MG TABLET PO SCH (09:42)
[2019-09-17] MEDS: amLODIPine BESYLATE 10 MG TABLET (FP) PO SCH (09:42)
[2019-09-17] MEDS: ENOXAPARIN NA (PORCINE) 40 MG/0.4 ML DISP.SYRIN SQ SCH (09:45)
--- NOTE | 2019-09-17 11:12 | PN ---
Progress Note, Physician Chief Complaint: AWAKE CONFUSED WANDERING IN HALLWAYS - Current Medication List Current Medications: Active Medications Acetaminophen (Tylenol -) 650 mg PO Q6H PRN PRN Reason: FEVER Last Admin: 09/17/19 06:51 Dose: 650 mg Amlodipine Besylate (Norvasc -) 10 mg PO DAILY [facility] Last Admin: 09/17/19 09:42 Dose: 10 mg Amoxicillin (Amoxicillin -) 500 mg PO TID [facility] Last Admin: 09/17/19 06:53 Dose: 500 mg Atorvastatin Calcium (Lipitor -) 40 mg PO [facility] Last Admin: 09/17/19 00:50 Dose: Not Given Donepezil HCl (Aricept -) 10 mg PO [facility] Last Admin: 09/16/19 23:23 Dose: 10 mg Enoxaparin Sodium (Lovenox -) 40 mg SQ DAILY [facility] Last Admin: 09/17/19 09:45 Dose: 40 mg Insulin Aspart (Novolog Vial Sliding Scale -) 1 vial SQ [facility]; Protocol Last Admin: 09/17/19 00:50 Dose: Not Given Insulin Aspart (Novolog Vial Sliding Scale -) 1 vial SQ [facility]; Protocol Last Admin: 09/17/19 09:39 Dose: 10 units Insulin Detemir (Levemir Vial) 10 units SQ BID@0700,2200 [facility] Last Admin: 09/17/19 06:57 Dose: 10 unit Levothyroxine Sodium (Synthroid -) 50 mcg PO DAILY@0700 [facility] Last Admin: 09/17/19 06:52 Dose: 50 mcg Memantine (Namenda -) 10 mg PO BID [facility] Last Admin: 09/17/19 09:42 Dose: 10 mg Metoprolol Succinate (Toprol Xl -) 50 mg PO DAILY [facility] Last Admin: 09/17/19 09:42 Dose: 50 mg Olanzapine (Zyprexa -) 5 mg PO BID [facility] Last Admin: 09/17/19 09:42 Dose: 5 mg - Objective Vital Signs: Vital Signs Temperature 98.2 F 09/17/19 09:30 Pulse Rate 96 H 09/17/19 09:30 Respiratory Rate 20 09/17/19 09:30 Blood Pressure 154/87 09/17/19 09:30 O2 Sat by Pulse Oximetry (%) 96 09/16/19 09:00 Constitutional: Yes: Mild Distress Cardiovascular: Yes: Regular Rate and Rhythm Respiratory: Yes: Diminished Gastrointestinal: Yes: WNL Genitourinary: Yes: Incontinence Musculoskeletal: Yes: Muscle Weakness Neurological: Yes: Confusion Labs: CBC, BMP 09/14/19 06:30 09/14/19 06:30 INR, PTT INR 0.91 (0.83-1.09) 09/07/19 02:02 Problem List - Problems (1) AMS (altered mental status) Code(s): R41.82 - ALTERED MENTAL STATUS, UNSPECIFIED (2) Agitation Code(s): R45.1 - RESTLESSNESS AND AGITATION (3) Common bile duct dilatation Code(s): K83.8 - OTHER SPECIFIED DISEASES OF BILIARY TRACT (4) Delirium Code(s): R41.0 - DISORIENTATION, UNSPECIFIED (5) Dementia Code(s): F03.90 - UNSPECIFIED DEMENTIA WITHOUT BEHAVIORAL DISTURBANCE (6) HLD (hyperlipidemia) Code(s): E78.5 - HYPERLIPIDEMIA, UNSPECIFIED (7) HTN (hypertension) Code(s): I10 - ESSENTIAL (PRIMARY) HYPERTENSION (8) Confusion Code(s): R41.0 - DISORIENTATION, UNSPECIFIED (9) Diabetes Code(s): E11.9 - TYPE 2 DIABETES MELLITUS WITHOUT COMPLICATIONS Assessment/Plan AWAITING FOR DC PLANNING AND HOME CARE ON ZYPREXA CONTINUE OOB TO CHAIR WITH AID PT
[2019-09-17] MEDS ORDERED: HALOPERIDOL LACTATE 5 MG/ML IM ONE (11:30)
[2019-09-17 16:17] VITALS: BP 137/68; PULSE 98; TEMP 98.3
[2019-09-17] MEDS ORDERED: INSULIN SLIDING SCALE (NOVOLOG) 1 VIAL SQ SCH (16:30)
[2019-09-17] MEDS ORDERED: PT OWN MED DRAWER 7, Y5N ONE (16:51)
== END 2019-09-17 16:00 | disposition home or self-care (01) | DRG 689 ==
LOC: JER 01:07 → JERBED 09:24 → J5S 12:44
PROVIDERS: ADMIT Family Medicine; ATTEND Family Medicine
DX: N39.0 Urinary tract infection, site not specified (principal); G93.41 Metabolic encephalopathy; R78.81 Bacteremia; G30.9 Alzheimer's disease, unspecified; I10 Essential (primary) hypertension; K83.8 Other specified diseases of biliary tract; E78.5 Hyperlipidemia, unspecified; R41.82 Altered mental status, unspecified; E03.9 Hypothyroidism, unspecified; F02.80 Dementia in other diseases classified elsewhere, unspecified severity, without behavioral disturbance, psychotic disturbance, mood disturbance, and anxiety; D72.829 Elevated white blood cell count, unspecified; R00.0 Tachycardia, unspecified; E11.65 Type 2 diabetes mellitus with hyperglycemia
CPT/HCPCS: 36415; 70450-TC; 71045-TC-FY; 73090-TC-RT-FY; 73130-TC-RT-FY; 76700-TC; 80053; 80076; 81003; 82962; 82977; 83036; 83605; 84443; 85025; 85027; 85610; 87040; 87077; 87086; 87186; 93005; 93010; 97116-GP; 97161-GP; 99284-25

== ENCOUNTER 2023-10-07 13:31 | Emergency (ER) | payer OTHER ==
[2023-10-07] MEDS ORDERED: SODIUM CHLORIDE 0.9% 500 ML INFUS.BAG IV ONE (14:46)
[2023-10-07 14:50] VITALS: BP 128/78; PULSE 75; RESP 16; TEMP 98.7
[2023-10-07 14:56] VITALS: BMI 18.8
[2023-10-07] MEDS ORDERED: HALOPERIDOL LACTATE 5 MG/ML IM ONE (15:05)
[2023-10-07] MEDS ORDERED: HALOPERIDOL LACTATE 5 MG/ML ONE (15:07)
[2023-10-07 16:48] LABS: VENOUS BASE EXCESS -0.2 mmol/L (-2-2); VENOUS O2 SATURATION 88.1 % (70-80); VENOUS PCO2 41.2 mmHg (38-52); VENOUS PH 7.395 (7.310-7.410)
[2023-10-07 16:54] LABS: CHLORIDE 105 mmol/L (98-107); POTASSIUM 4.6 mmol/L (3.5-5.1); SODIUM 139 mmol/L (136-145)
[2023-10-07 16:55] LABS: CALCIUM 9.6 mg/dL (8.5-10.1); GLUCOSE,RANDOM 199 mg/dL (74-106)
[2023-10-07 16:56] LABS: ALBUMIN 3.4 g/dl (3.4-5.0); ANION GAP 7 mmol/L (4-13); CO2 27 mmol/L (21-32); MAGNESIUM 1.9 mg/dL (1.8-2.4)
[2023-10-07 16:58] LABS: SGPT/ALT 19 U/L (13-61)
[2023-10-07 16:59] LABS: INR 0.97 (0.83-1.09); PROTHROMBIN TIME (PATIENT) 11.2 SEC (9.7-13.0); SGOT/AST 24 U/L (15-37)
[2023-10-07 17:00] LABS: ACTIVATED PTT 30.5 SECONDS (25.2-36.5); BILIRUBIN,TOTAL < 0.1 mg/dL (0.2-1); TOT PROT 8.1 g/dl (6.4-8.2)
[2023-10-07 17:01] LABS: ALK PHOS 137 U/L (45-117)
[2023-10-07 17:11] LABS: BASO % 0.4 % (0-2.0); EOS % 1.6 % (0-4.5); HEMATOCRIT 33.8 % (32.4-45.2); HEMOGLOBIN 11.2 GM/dL (10.7-15.3); LYMPH % 25.2 % (8-40); MCH 27.7 pg (25.7-33.7); MCHC 33.2 g/dl (32.0-36.0); MEAN CELL VOLUME 83.4 fl (80-96); MEAN PLT VOLUME 8.1 fl (7.5-11.1); MONO % 4.2 % (3.8-10.2); NEUT % 68.6 % (42.8-82.8); PLATELET COUNT 332 10^3/uL (134-434); RBC 4.05 M/mm3 (3.60-5.2); RDW 14.2 % (11.6-15.6); WHITE BLOOD COUNT 11.1 K/mm3 (4.0-10.0)
== END 2023-10-07 20:23 | disposition home or self-care (01) ==
LOC: JER 13:31
PROC: 3E033GC Introduction of Other Therapeutic Substance into Peripheral Vein, Percutaneous Approach (ICD-10-PCS; principal; 2023-10-07)
DX: R05.9 Cough, unspecified (principal); Z20.822 Contact with and (suspected) exposure to COVID-19
CPT/HCPCS: 0241U-QW; 36415; 71045-TC-FY; 80053; 82010; 82803; 82962; 83735; 84100; 84484; 85025; 85610; 85730; 93005; 93010; 96374; 99285-25

== ENCOUNTER 2024-10-18 16:54 | Inpatient (IN) | payer OTHER ==
[2024-10-18 20:25] LABS: VENOUS BASE EXCESS -1.3 mmol/L (-2-2); VENOUS O2 SATURATION 96.2 % (70-80); VENOUS PCO2 46.1 mmHg (38-52); VENOUS PH 7.346 (7.310-7.410)
[2024-10-18 20:27] LABS: BASO % 0.2 % (0-2.0); EOS % 0.4 % (0-4.5); HEMATOCRIT 40.7 % (32.4-45.2); HEMOGLOBIN 12.5 GM/dL (10.7-15.3); LYMPH % 20.1 % (8-40); MCH 27.3 pg (25.7-33.7); MCHC 30.8 g/dl (32.0-36.0); MEAN CELL VOLUME 88.7 fl (80-96); MEAN PLT VOLUME 12.6 fl (7.5-11.1); MONO % 3.2 % (3.8-10.2); NEUT % 76.1 % (42.8-82.8); PLATELET COUNT 187 10^3/uL (134-434); RBC 4.59 M/mm3 (3.60-5.2); WHITE BLOOD COUNT 15.9 K/mm3 (4.0-10.0)
[2024-10-18 20:49] LABS: CHLORIDE 141 mmol/L (98-107)
[2024-10-18 20:51] LABS: CALCIUM 8.5 mg/dL (8.5-10.1)
[2024-10-18 20:52] LABS: ALBUMIN 2.7 g/dl (3.4-5.0); BLOOD UREA NITROGEN 81.2 mg/dL (7-18); CO2 27 mmol/L (21-32); GLUCOSE,RANDOM 387 mg/dL (74-106); MAGNESIUM 3.4 mg/dL (1.8-2.4)
[2024-10-18 20:55] LABS: CREATININE 2.2 mg/dL (0.55-1.3); PHOSPHOROUS 5.7 mg/dL (2.5-4.9); SGOT/AST 38 U/L (15-37); SGPT/ALT 17 U/L (13-61)
[2024-10-18 20:56] LABS: BILIRUBIN,TOTAL 0.4 mg/dL (0.2-1); TOT PROT 7.3 g/dl (6.4-8.2)
[2024-10-18 20:58] LABS: ALK PHOS 141 U/L (45-117)
[2024-10-18 21:05] LABS: ANION GAP 3 mmol/L (4-13); POTASSIUM 6.2 mmol/L (3.5-5.1); SODIUM 171 mmol/L (136-145)
[2024-10-18 23:11] LABS: CHLORIDE 143 mmol/L (98-107); POTASSIUM 4.5 mmol/L (3.5-5.1)
[2024-10-18 23:12] LABS: SODIUM 172 mmol/L (136-145)
[2024-10-18 23:13] LABS: ANION GAP 3 mmol/L (4-13); BLOOD UREA NITROGEN 83.6 mg/dL (7-18); CALCIUM 8.5 mg/dL (8.5-10.1); CO2 26 mmol/L (21-32)
[2024-10-18 23:17] LABS: CREATININE 2.2 mg/dL (0.55-1.3)
[2024-10-18 23:20] LABS: GLUCOSE,RANDOM 458 mg/dL (74-106)
[2024-10-18] MEDS: SODIUM CHLORIDE 0.45% 1,000 ML IV SCH (23:27)
[2024-10-19 01:06] LABS: EPI CELLS >36 /uL (0-25.1); HYALINE CASTS 6 /uL (0-3.1); URINE APPEARANCE CLEAR; URINE BACTERIA 15 /uL (0-1359); URINE BILIRUBIN NEGATIVE (NEGATIVE); URINE COLOR DK YELLOW; URINE GLUCOSE (UA) TRACE (NEGATIVE); URINE KETONE TRACE (NEGATIVE); URINE LEUK ESTERASE NEGATIVE (NEGATIVE); URINE NITRITE NEGATIVE (NEGATIVE); URINE PROTEIN 3+ (NEGATIVE); URINE RBC 8 /uL (0-23.9); URINE UROBILINOGEN 0.2 mg/dL (0.2-1.0); URINE WBC 31 /uL (0-25.8)
[2024-10-19] MEDS: INSULIN REGULAR HUMAN 100 UNITS/ML *VIAL IVPUSH ONE ×2 (03:18→06:57)
[2024-10-19] MEDS: SODIUM CHLORIDE 0.45% 1,000 ML IV SCH (03:19)
[2024-10-19] MEDS: SODIUM CHLORIDE 1,000 ML IV STA (03:54)
[2024-10-19 04:21] LABS: CHLORIDE 139 mmol/L (98-107); POTASSIUM 4.4 mmol/L (3.5-5.1)
[2024-10-19 04:22] LABS: CALCIUM 8.3 mg/dL (8.5-10.1)
[2024-10-19 04:23] LABS: BLOOD UREA NITROGEN 85.7 mg/dL (7-18); CO2 24 mmol/L (21-32)
[2024-10-19 04:26] LABS: CREATININE 2.2 mg/dL (0.55-1.3)
[2024-10-19 05:28] LABS: ANION GAP 7 mmol/L (4-13); GLUCOSE,RANDOM 518 mg/dL (74-106); SODIUM 169 mmol/L (136-145)
[2024-10-19] MEDS: INSULIN (NOVOLOG MIX 70/30) 100 UNITS/ML MDV SQ SCH (06:48)
[2024-10-19] MEDS: LEVOTHYROXINE NA 50 MCG TABLET (FP) PO SCH (06:54)
[2024-10-19] MEDS: CEFTRIAXONE 1 G/50 ML PREMIX 50 ML IVPB SCH (06:54)
[2024-10-19] MEDS: INSULIN ASPART SLIDING SCALE (NOVOLOG) 1 VIAL SQ SCH (06:55)
[2024-10-19] MEDS ORDERED: INSULIN ASPART SLIDING SCALE (NOVOLOG) 1 VIAL SQ SCH (07:00)
[2024-10-19 09:06] LABS: HEMATOCRIT 37.2 % (32.4-45.2); MCH 26.7 pg (25.7-33.7); MCHC 29.6 g/dl (32.0-36.0); MEAN CELL VOLUME 90.2 fl (80-96); MEAN PLT VOLUME 12.6 fl (7.5-11.1); PLATELET COUNT 165 10^3/uL (134-434); RBC 4.12 M/mm3 (3.60-5.2); RDW 16.5 % (11.6-15.6); WHITE BLOOD COUNT 17.1 K/mm3 (4.0-10.0)
[2024-10-19 09:31] LABS: CHLORIDE 140 mmol/L (98-107)
[2024-10-19 09:33] LABS: ANION GAP 7 mmol/L (4-13); BLOOD UREA NITROGEN 83.2 mg/dL (7-18); CALCIUM 8.2 mg/dL (8.5-10.1); CO2 24 mmol/L (21-32); GLUCOSE,RANDOM 359 mg/dL (74-106); MAGNESIUM 3.1 mg/dL (1.8-2.4); SODIUM 171 mmol/L (136-145)
[2024-10-19 09:36] LABS: CREATININE 2.1 mg/dL (0.55-1.3); PHOSPHOROUS 4.8 mg/dL (2.5-4.9)
[2024-10-19] MEDS ORDERED: PATIENT'S OWN MEDICATION (NON-FORMULARY) (Omeprazole 20 MG Capsule.Dr) PO SCH (10:00)
[2024-10-19] MEDS ORDERED: amLODIPine BESYLATE 10 MG TABLET (FP) PO SCH (10:00)
[2024-10-19] MEDS ORDERED: PATIENT'S OWN MEDICATION (NON-FORMULARY) (Linagliptin [Tradjenta] 5 MG Tablet) PO SCH (10:00)
[2024-10-19] MEDS ORDERED: PATIENT'S OWN MEDICATION (NON-FORMULARY) (Clonazepam [Clonazepam] 1 MG Tablet) PO SCH (10:00)
[2024-10-19] MEDS ORDERED: DONEPEZIL HCL 10 MG TABLET (FP) PO SCH (10:00)
[2024-10-19] MEDS ORDERED: INSULIN (NOVOLOG MIX 70/30) 100 UNITS/ML MDV SQ SCH (10:00)
[2024-10-19 14:34] LABS: CHLORIDE 141 mmol/L (98-107); POTASSIUM 3.6 mmol/L (3.5-5.1); SODIUM 168 mmol/L (136-145)
[2024-10-19 14:36] LABS: ANION GAP 1 mmol/L (4-13); CO2 26 mmol/L (21-32); GLUCOSE,RANDOM 96 mg/dL (74-106)
[2024-10-19 14:39] LABS: CREATININE 1.9 mg/dL (0.55-1.3)
[2024-10-19 17:38] LABS: CHLORIDE 139 mmol/L (98-107); POTASSIUM 3.9 mmol/L (3.5-5.1)
[2024-10-19 17:39] LABS: BLOOD UREA NITROGEN 79.9 mg/dL (7-18); CALCIUM 7.8 mg/dL (8.5-10.1); CO2 24 mmol/L (21-32); GLUCOSE,RANDOM 196 mg/dL (74-106)
[2024-10-19 17:41] LABS: ANION GAP 4 mmol/L (4-13); SODIUM 167 mmol/L (136-145)
[2024-10-19 17:43] LABS: CREATININE 1.9 mg/dL (0.55-1.3)
[2024-10-19] MEDS ORDERED: MIRTAZAPINE 15 MG TABLET (FP) PO SCH (22:00)
[2024-10-19] MEDS ORDERED: ATORVASTATIN CA 20 MG TABLET (FP) PO SCH (22:00)
[2024-10-20] MEDS: LEVOTHYROXINE SODIUM 100 MCG 5 ML VIAL IVPUSH SCH (06:02)
[2024-10-20 10:00] LABS: BASO % 0.3 % (0-2.0); EOS % 0.6 % (0-4.5); HEMOGLOBIN 10.1 GM/dL (10.7-15.3); LYMPH % 14.2 % (8-40); MCH 26.9 pg (25.7-33.7); MCHC 30.5 g/dl (32.0-36.0); MEAN CELL VOLUME 87.9 fl (80-96); MEAN PLT VOLUME 12.2 fl (7.5-11.1); MONO % 2.8 % (3.8-10.2); NEUT % 82.1 % (42.8-82.8); PLATELET COUNT 140 10^3/uL (134-434); RBC 3.75 M/mm3 (3.60-5.2); RDW 15.6 % (11.6-15.6); WHITE BLOOD COUNT 15.2 K/mm3 (4.0-10.0)
[2024-10-20 10:44] LABS: BLOOD UREA NITROGEN 59.3 mg/dL (7-18); CALCIUM 7.9 mg/dL (8.5-10.1)
[2024-10-20 10:48] LABS: CREATININE 1.7 mg/dL (0.55-1.3)
[2024-10-20] MEDS: SODIUM CHLORIDE 0.45% 1,000 ML IV SCH (11:45)
[2024-10-20 11:54] LABS: ALBUMIN 2.5 g/dl (3.4-5.0)
[2024-10-20] MEDS ORDERED: ACETAMINOPHEN 325 MG TABLET (FP) PO PRN (11:54)
[2024-10-20 11:57] LABS: BILIRUBIN,DIRECT 0.1 mg/dL (0.0-0.2)
[2024-10-20 11:59] LABS: BILIRUBIN,TOTAL 0.3 mg/dL (0.2-1)
[2024-10-20] MEDS: ACETAMINOPHEN 1000 MG/100 ML BAG IVPB ONE (12:38)
[2024-10-20] MEDS: THIAMINE HCL 200 MG/2 ML VIAL IM SCH (12:52)
[2024-10-20 13:39] LABS: POTASSIUM 3.8 mmol/L (3.5-5.1)
[2024-10-20 13:41] LABS: BLOOD UREA NITROGEN 53.5 mg/dL (7-18); CALCIUM 7.8 mg/dL (8.5-10.1)
[2024-10-20 13:45] LABS: CREATININE 1.6 mg/dL (0.55-1.3)
[2024-10-20 15:48] LABS: POTASSIUM 4.2 mmol/L (3.5-5.1)
[2024-10-20 15:52] LABS: CALCIUM 7.5 mg/dL (8.5-10.1)
[2024-10-20 15:53] LABS: BLOOD UREA NITROGEN 54.2 mg/dL (7-18)
[2024-10-20 15:55] LABS: CREATININE 1.6 mg/dL (0.55-1.3)
[2024-10-20] MEDS: DONEPEZIL HCL 10 MG TABLET (FP) PO SCH (21:30)
[2024-10-20] MEDS: MIRTAZAPINE 15 MG TABLET (FP) PO SCH (21:30)
[2024-10-20] MEDS: ATORVASTATIN CA 20 MG TABLET (FP) PO SCH (21:30)
[2024-10-20 22:29] LABS: POTASSIUM 3.8 mmol/L (3.5-5.1)
[2024-10-20 22:31] LABS: BLOOD UREA NITROGEN 55.4 mg/dL (7-18); CALCIUM 7.8 mg/dL (8.5-10.1)
[2024-10-20 22:35] LABS: CREATININE 1.8 mg/dL (0.55-1.3)
[2024-10-21 09:37] LABS: BASO % 0.3 % (0-2.0); EOS % 2.4 % (0-4.5); HEMATOCRIT 34.1 % (32.4-45.2); HEMOGLOBIN 10.7 GM/dL (10.7-15.3); LYMPH % 13.5 % (8-40); MCHC 31.3 g/dl (32.0-36.0); MEAN CELL VOLUME 86.3 fl (80-96); MEAN PLT VOLUME 11.4 fl (7.5-11.1); MONO % 2.7 % (3.8-10.2); NEUT % 81.1 % (42.8-82.8); PLATELET COUNT 142 10^3/uL (134-434); RBC 3.95 M/mm3 (3.60-5.2); RDW 15.1 % (11.6-15.6); WHITE BLOOD COUNT 15.1 K/mm3 (4.0-10.0)
[2024-10-21 09:57] LABS: CHLORIDE 137 mmol/L (98-107); POTASSIUM 3.5 mmol/L (3.5-5.1)
[2024-10-21 09:58] LABS: SODIUM 162 mmol/L (136-145)
[2024-10-21 10:02] LABS: ANION GAP 1 mmol/L (4-13); BLOOD UREA NITROGEN 46.8 mg/dL (7-18); CALCIUM 8.1 mg/dL (8.5-10.1); CO2 24 mmol/L (21-32); GLUCOSE,RANDOM 97 mg/dL (74-106)
[2024-10-21 10:06] LABS: CREATININE 1.7 mg/dL (0.55-1.3)
[2024-10-21] MEDS: metoPROLOL SUCCINATE 25 MG TAB.SR.24H (FP) PO SCH (10:40)
[2024-10-21] MEDS: PANTOPRAZOLE 40 MG TABLET PO SCH (10:40)
[2024-10-21] MEDS: amLODIPine BESYLATE 10 MG TABLET (FP) PO SCH (10:42)
[2024-10-21] MEDS: ACETAMINOPHEN 325 MG TABLET (FP) PO PRN (15:15)
[2024-10-21 15:50] LABS: CHLORIDE 135 mmol/L (98-107); POTASSIUM 3.4 mmol/L (3.5-5.1)
[2024-10-21 15:52] LABS: CALCIUM 7.8 mg/dL (8.5-10.1)
[2024-10-21 15:53] LABS: CO2 23 mmol/L (21-32); GLUCOSE,RANDOM 232 mg/dL (74-106)
[2024-10-21 15:56] LABS: CREATININE 1.6 mg/dL (0.55-1.3)
[2024-10-21 15:57] LABS: ANION GAP 3 mmol/L (4-13); SODIUM 161 mmol/L (136-145)
[2024-10-21] MEDS: KCL 10 MEQ IVPB 10 MEQ/100 ML INFUS.BAG IVPB SCH (17:01)
[2024-10-21] MEDS: POTASSIUM CHLORIDE 20 MEQ in DEXTROSE 5%-WATER - 1,000 ML IV SCH (18:32)
[2024-10-22 09:36] LABS: HEMATOCRIT 31.7 % (32.4-45.2); HEMOGLOBIN 10.3 GM/dL (10.7-15.3); MCH 27.5 pg (25.7-33.7); MCHC 32.5 g/dl (32.0-36.0); MEAN CELL VOLUME 84.6 fl (80-96); MEAN PLT VOLUME 11.9 fl (7.5-11.1); PLATELET COUNT 96 10^3/uL (134-434); RBC 3.75 M/mm3 (3.60-5.2); RDW 15.5 % (11.6-15.6); WHITE BLOOD COUNT 15.9 K/mm3 (4.0-10.0)
[2024-10-22 09:59] LABS: CHLORIDE 134 mmol/L (98-107); POTASSIUM 3.1 mmol/L (3.5-5.1); SODIUM 161 mmol/L (136-145)
[2024-10-22 10:01] LABS: BLOOD UREA NITROGEN 30.2 mg/dL (7-18); CALCIUM 7.8 mg/dL (8.5-10.1)
[2024-10-22 10:02] LABS: ANION GAP 3 mmol/L (4-13); CO2 23 mmol/L (21-32); GLUCOSE,RANDOM 54 mg/dL (74-106)
[2024-10-22 10:04] LABS: CREATININE 1.2 mg/dL (0.55-1.3)
[2024-10-22 10:05] LABS: MAGNESIUM 2.3 mg/dL (1.8-2.4); PHOSPHOROUS 2.1 mg/dL (2.5-4.9)
[2024-10-22] MEDS: KCL 10 MEQ IVPB 10 MEQ/100 ML INFUS.BAG IVPB SCH (11:04)
[2024-10-22] MEDS: POTASSIUM CHLORIDE 20 MEQ in DEXTROSE 5%-WATER - 1,000 ML IV SCH (11:05)
[2024-10-22] MEDS: DEXTROSE 50%-WATER 25 GM/50 ML DISP.SYRIN IVPUSH ONE (11:20)
[2024-10-22] MEDS: NAPH,MB-DB/K PH,MBDB POWDER PACKET PO ONE (11:46)
[2024-10-22 11:57] LABS: ANISOCYTOSIS 1+; MACROCYTOSIS 0
[2024-10-22 16:01] LABS: POTASSIUM 4.5 mmol/L (3.5-5.1)
[2024-10-22 16:03] LABS: CALCIUM 7.5 mg/dL (8.5-10.1)
[2024-10-22 16:07] LABS: CREATININE 1.4 mg/dL (0.55-1.3)
[2024-10-22 21:34] LABS: POTASSIUM 4.2 mmol/L (3.5-5.1)
[2024-10-22 21:36] LABS: CALCIUM 7.3 mg/dL (8.5-10.1)
[2024-10-22 21:37] LABS: BLOOD UREA NITROGEN 26.7 mg/dL (7-18)
[2024-10-22] MEDS: METOPROLOL TARTRATE 25 MG TABLET (FP) PO SCH (21:38)
[2024-10-22 21:40] LABS: CREATININE 1.4 mg/dL (0.55-1.3)
[2024-10-22] MEDS: INSULIN (NOVOLOG MIX 70/30) 100 UNITS/ML MDV SQ SCH (21:40)
[2024-10-23 11:12] LABS: HEMATOCRIT 32.5 % (32.4-45.2); HEMOGLOBIN 10.5 GM/dL (10.7-15.3); MCH 27.8 pg (25.7-33.7); MCHC 32.4 g/dl (32.0-36.0); MEAN CELL VOLUME 85.7 fl (80-96); MEAN PLT VOLUME 11.5 fl (7.5-11.1); PLATELET COUNT 110 10^3/uL (134-434); RBC 3.79 M/mm3 (3.60-5.2); RDW 15.3 % (11.6-15.6); WHITE BLOOD COUNT 12.3 K/mm3 (4.0-10.0)
[2024-10-23 11:26] LABS: POTASSIUM 4.4 mmol/L (3.5-5.1); POTASSIUM 4.5 mmol/L (3.5-5.1)
[2024-10-23 11:31] LABS: BLOOD UREA NITROGEN 20.4 mg/dL (7-18); CALCIUM 7.7 mg/dL (8.5-10.1); CALCIUM 7.8 mg/dL (8.5-10.1)
[2024-10-23 11:32] LABS: BLOOD UREA NITROGEN 20.2 mg/dL (7-18); MAGNESIUM 2.1 mg/dL (1.8-2.4)
[2024-10-23 11:34] LABS: CREATININE 1.2 mg/dL (0.55-1.3)
[2024-10-23 11:35] LABS: CREATININE 1.2 mg/dL (0.55-1.3); PHOSPHOROUS 1.7 mg/dL (2.5-4.9)
[2024-10-23] MEDS: NAPH,MB-DB/K PH,MBDB POWDER PACKET PO ONE (14:54)
[2024-10-24] MEDS: SODIUM PHOSPHATE - 15 MM in SODIUM CHLORIDE 250 ML IVPB ONE (07:47)
[2024-10-24 09:10] LABS: POTASSIUM 4.7 mmol/L (3.5-5.1)
[2024-10-24 09:16] LABS: CALCIUM 7.4 mg/dL (8.5-10.1)
[2024-10-24 09:17] LABS: BLOOD UREA NITROGEN 16.2 mg/dL (7-18)
[2024-10-24 09:20] LABS: CREATININE 1.1 mg/dL (0.55-1.3)
[2024-10-24 14:34] VITALS: BMI 15.9
[2024-10-24] MEDS ORDERED: INSULIN (NOVOLOG MIX 70/30) 100 UNITS/ML MDV SQ ONE (18:04)
[2024-10-24] MEDS: clonazePAM 0.5 MG TABLET PO PRN (23:01)
[2024-10-25 09:31] VITALS: RESP 18
[2024-10-25] MEDS: PANTOPRAZOLE SODIUM 40 MG VIAL IVPUSH SCH (09:32)
[2024-10-25 11:47] LABS: HEMOGLOBIN 11.8 GM/dL (10.7-15.3); MCHC 32.9 g/dl (32.0-36.0); MEAN CELL VOLUME 84.9 fl (80-96); MEAN PLT VOLUME 11.4 fl (7.5-11.1); PLATELET COUNT 155 10^3/uL (134-434); RBC 4.24 M/mm3 (3.60-5.2); RDW 15.8 % (11.6-15.6); WHITE BLOOD COUNT 9.1 K/mm3 (4.0-10.0)
[2024-10-26 05:52] VITALS: TEMP 99.3
[2024-10-26 10:01] VITALS: BP 148/63; PULSE 83
== END 2024-10-26 12:53 | disposition home or self-care (01) | DRG 422 ==
LOC: JER 16:54 → JERBED 23:59 → J5S 10-19 05:02
PROVIDERS: ADMIT Internal Medicine; ATTEND Internal Medicine
DX: E87.0 Hyperosmolality and hypernatremia (principal); E86.0 Dehydration; E43 Unspecified severe protein-calorie malnutrition; L89.322 Pressure ulcer of left buttock, stage 2; R53.2 Functional quadriplegia; E11.65 Type 2 diabetes mellitus with hyperglycemia; E11.22 Type 2 diabetes mellitus with diabetic chronic kidney disease; R64 Cachexia; F02.80 Dementia in other diseases classified elsewhere, unspecified severity, without behavioral disturbance, psychotic disturbance, mood disturbance, and anxiety; G30.9 Alzheimer's disease, unspecified; E03.9 Hypothyroidism, unspecified; F32.A Depression, unspecified; R62.7 Adult failure to thrive; Z68.1 Body mass index [BMI] 19.9 or less, adult; E78.5 Hyperlipidemia, unspecified; I12.9 Hypertensive chronic kidney disease with stage 1 through stage 4 chronic kidney disease, or unspecified chronic kidney disease; N18.9 Chronic kidney disease, unspecified
CPT/HCPCS: 0241U-QW; 36415; 71045-TC-FY; 76775-TC; 80048; 80053; 80076; 81003; 82140; 82803; 82962; 83605; 83735; 84100; 84436; 84439; 84443; 84479; 84484; 85025; 85027; 85610; 87086; 93005; 93010; 97161-GP; 99285-25; J0131

== ENCOUNTER 2024-12-14 21:08 | Inpatient (IN) | payer OTHER ==
[2024-12-14 21:15] VITALS: BMI 20.2
[2024-12-14 22:49] LABS: ABSOLUTE IMMATURE GRANULOCYTES 0.07 x10^3/uL (0.0-0.031); BASOPHILS # 0.03 x10^3/uL (0.01-0.08); HEMATOCRIT 33.9 % (34.1-44.9); HEMOGLOBIN 10.5 g/dL (11.2-15.7); MEAN CELL VOLUME 89.7 fl (79.4-94.8); MEAN PLT VOLUME 11.2 fl (9.4-12.3); MONOCYTE # 0.66 x10^3/uL (0.24-0.86); MONOCYTE % 3.6 % (4.7-12.5); PLATELET COUNT 311 x10^3/uL (182-369); RDW 15.3 % (12.5-17.0); VENOUS O2 SATURATION 78.2 % (70-80); VENOUS PCO2 38.2 mmHg (38-52); VENOUS PH 7.358 (7.310-7.410)
[2024-12-14 22:56] LABS: INR 1.34 (0.83-1.09); PROTHROMBIN TIME (PATIENT) 14.7 SEC (9.7-13.0)
[2024-12-14 22:58] LABS: ACTIVATED PTT 28.2 SECONDS (25.2-36.5)
[2024-12-14] MEDS ORDERED: ACETAMINOPHEN INJECTION 100 ML ONE (23:09)
[2024-12-14 23:10] LABS: POTASSIUM 4.9 mmol/L (3.5-5.1)
[2024-12-14] MEDS ORDERED: PIPERACILLIN/TAZOB 3.375 GM 3.375 GM/50 ML BAG IVPB ONE (23:10)
[2024-12-14 23:12] LABS: ALBUMIN 2.9 g/dl (3.4-5.0); BLOOD UREA NITROGEN 48.9 mg/dL (7-18); CALCIUM 8.6 mg/dL (8.5-10.1)
[2024-12-14 23:13] LABS: EPI CELLS >36 /uL (0-25.1); HYALINE CASTS 2 /uL (0-3.1); PH,URINE 5.5 (5.0-8.0); URINE APPEARANCE CLOUDY; URINE BACTERIA 180 /uL (0-1359); URINE BILIRUBIN 1+ (NEGATIVE); URINE COLOR DK YELLOW; URINE GLUCOSE (UA) TRACE (NEGATIVE); URINE KETONE NEGATIVE (NEGATIVE); URINE LEUK ESTERASE NEGATIVE (NEGATIVE); URINE NITRITE NEGATIVE (NEGATIVE); URINE PROTEIN 4+ (NEGATIVE); URINE WBC 37 /uL (0-25.8)
[2024-12-14 23:16] LABS: CREATININE 1.6 mg/dL (0.55-1.3)
[2024-12-14 23:17] LABS: BILIRUBIN,TOTAL 1.4 mg/dL (0.2-1); TOT PROT 7.5 g/dl (6.4-8.2)
[2024-12-14] MEDS: SODIUM CHLORIDE 0.9% 1000 ML INFUS.BAG IV ONE (23:23)
[2024-12-14] MEDS: ACETAMINOPHEN 1000 MG/100 ML BAG IVPB ONE (23:23)
[2024-12-14] MEDS: PIPERACILLIN/TAZOB 3.375 GM 3.375 GM in DEXTROSE 5%-WATER - 50 ML IVPB ONE (23:24)
[2024-12-14 23:31] LABS: LACTIC ACID 2.6 mmol/L (0.4-2.0)
[2024-12-15] MEDS: VANCOMYCIN 1,000 MG in DEXTROSE 5%-WATER - 250 ML IVPB ONE (00:11)
[2024-12-15] MEDS ORDERED: VANCOMYCIN 1 GM PREMIX (F) 1 GM/200 ML BAG ONE (00:15)
[2024-12-15 03:12] LABS: POTASSIUM 4.6 mmol/L (3.5-5.1)
[2024-12-15 03:15] LABS: ALBUMIN 2.7 g/dl (3.4-5.0); BLOOD UREA NITROGEN 47.6 mg/dL (7-18)
[2024-12-15 03:18] LABS: CREATININE 1.6 mg/dL (0.55-1.3)
[2024-12-15 03:20] LABS: BILIRUBIN,TOTAL 1.5 mg/dL (0.2-1); TOT PROT 7.1 g/dl (6.4-8.2)
[2024-12-15] MEDS ORDERED: INSULIN ASPART SLIDING SCALE (NOVOLOG) 1 VIAL SQ SCH ×2 (03:44→07:00)
[2024-12-15 04:30] LABS: LACTIC ACID 2.5 mmol/L (0.4-2.0)
[2024-12-15] MEDS: SODIUM CHLORIDE 500 ML IV STA (04:35)
[2024-12-15] MEDS: INSULIN ASPART SLIDING SCALE (NOVOLOG) 1 VIAL SQ SCH (04:36)
[2024-12-15] MEDS ORDERED: ONDANSETRON 4 MG/2 ML VIAL IVPUSH PRN (05:29)
[2024-12-15 05:40] LABS: HEMATOCRIT 30.3 % (34.1-44.9); HEMOGLOBIN 9.2 g/dL (11.2-15.7); MCHC 30.4 g/dl (32.2-35.5); MEAN CELL VOLUME 92.4 fl (79.4-94.8); MEAN PLT VOLUME 11.4 fl (9.4-12.3); PLATELET COUNT 266 x10^3/uL (182-369); RDW 15.2 % (12.5-17.0)
[2024-12-15 05:58] LABS: POTASSIUM 4.7 mmol/L (3.5-5.1)
[2024-12-15 06:00] LABS: CALCIUM 7.7 mg/dL (8.5-10.1)
[2024-12-15 06:01] LABS: ALBUMIN 2.6 g/dl (3.4-5.0); BLOOD UREA NITROGEN 46.9 mg/dL (7-18); MAGNESIUM 2.3 mg/dL (1.8-2.4)
[2024-12-15 06:03] LABS: BILIRUBIN,DIRECT 1.1 mg/dL (0.0-0.2)
[2024-12-15 06:04] LABS: CREATININE 1.6 mg/dL (0.55-1.3); PHOSPHOROUS 5.1 mg/dL (2.5-4.9)
[2024-12-15 06:05] LABS: BILIRUBIN,TOTAL 1.3 mg/dL (0.2-1); TOT PROT 6.6 g/dl (6.4-8.2)
[2024-12-15 06:23] LABS: LACTIC ACID 2.8 mmol/L (0.4-2.0)
[2024-12-15] MEDS: SODIUM CHLORIDE 0.45% 1,000 ML IV SCH ×2 (06:46→12:18)
[2024-12-15] MEDS: INSULIN GLARGINE (LANTUS) 100 UNITS/ML UNITS SQ SCH (06:58)
[2024-12-15] MEDS: LEVOTHYROXINE NA 50 MCG TABLET (FP) PO SCH (09:23)
[2024-12-15] MEDS: PIPERACILLIN/TAZOB 2.25 GM 2.25 GM/50 ML BAG IVPB SCH ×2 (09:23→17:37)
[2024-12-15 10:19] LABS: LACTIC ACID 3.4 mmol/L (0.4-2.0)
[2024-12-15] MEDS ORDERED: DEXTROSE 5%-NORMAL SALINE 1,000 ML IV SCH (11:00)
[2024-12-15] MEDS ORDERED: ACETAMINOPHEN 1000 MG/100 ML BAG IVPB PRN (11:41)
[2024-12-15] MEDS: ACETAMINOPHEN 1000 MG/100 ML BAG IVPB ONE (12:16)
[2024-12-15] MEDS: METOPROLOL TARTRATE 5 MG/5 ML VIAL IVPB ONE (12:51)
[2024-12-15] MEDS: DEXTROSE 50%-WATER 25 GM/50 ML DISP.SYRIN IVPUSH PRN (22:07)
[2024-12-16] MEDS: DEXTROSE 5%-0.45% SALINE 1,000 ML IV SCH (03:56)
[2024-12-16 07:08] LABS: ABSOLUTE IMMATURE GRANULOCYTES 0.05 x10^3/uL (0.0-0.031); BASOPHILS # 0.02 x10^3/uL (0.01-0.08); EOSINOPHIL % 1.1 % (0.7-5.8); EOSINOPHILS # 0.12 x10^3/uL (0.04-0.36); HEMATOCRIT 28.6 % (34.1-44.9); HEMOGLOBIN 8.8 g/dL (11.2-15.7); MCHC 30.8 g/dl (32.2-35.5); MEAN CELL VOLUME 90.2 fl (79.4-94.8); MEAN PLT VOLUME 12.2 fl (9.4-12.3); MONOCYTE % 4.7 % (4.7-12.5); PLATELET COUNT 240 x10^3/uL (182-369); RDW 15.1 % (12.5-17.0)
[2024-12-16 07:16] LABS: INR 1.28 (0.83-1.09)
[2024-12-16 07:28] LABS: POTASSIUM 4.7 mmol/L (3.5-5.1)
[2024-12-16 07:32] LABS: ALBUMIN 2.6 g/dl (3.4-5.0); BLOOD UREA NITROGEN 34.3 mg/dL (7-18); CALCIUM 7.8 mg/dL (8.5-10.1); MAGNESIUM 2.2 mg/dL (1.8-2.4)
[2024-12-16 07:35] LABS: CREATININE 1.1 mg/dL (0.55-1.3)
[2024-12-16 07:37] LABS: TOT PROT 6.6 g/dl (6.4-8.2)
[2024-12-16 09:14] VITALS: RESP 19
[2024-12-16] MEDS: DEXTROSE 50%-WATER - 25 GM/50 ML VIAL IVPUSH ONE (11:08)
[2024-12-16] MEDS: PIPERACILLIN/TAZOB 3.375 GM 50 ML IVPB ONE (15:46)
[2024-12-16 17:37] VITALS: BP 125/51; PULSE 67; TEMP 98.8
[2024-12-17] MEDS ORDERED: PIPERACILLIN/TAZOB 2.25 GM 2.25 GM/50 ML BAG IVPB SCH (10:00)
[2024-12-17] MEDS ORDERED: DONEPEZIL HCL 10 MG TABLET (FP) PO SCH (10:00)
== END 2024-12-16 17:41 | disposition left against medical advice (07) | DRG 721 ==
LOC: JER 21:08 → JERBED 23:51 → J2W 12-15 06:49
PROVIDERS: ADMIT Internal Medicine; ATTEND Nurse Practitioner Acute Care
DX: T85.79XA Infection and inflammatory reaction due to other internal prosthetic devices, implants and grafts, initial encounter (principal); K83.09 Other cholangitis; F02.80 Dementia in other diseases classified elsewhere, unspecified severity, without behavioral disturbance, psychotic disturbance, mood disturbance, and anxiety; E11.65 Type 2 diabetes mellitus with hyperglycemia; G30.9 Alzheimer's disease, unspecified; E03.9 Hypothyroidism, unspecified; E78.5 Hyperlipidemia, unspecified; I10 Essential (primary) hypertension; Y83.9 Surgical procedure, unspecified as the cause of abnormal reaction of the patient, or of later complication, without mention of misadventure at the time of the procedure; R62.7 Adult failure to thrive; Z68.20 Body mass index [BMI] 20.0-20.9, adult
CPT/HCPCS: 0241U-QW; 36415; 71045-TC-FY; 74176-TC; 76705-TC; 80053; 81003; 82248; 82803; 82962; 83605; 83690; 83735; 84100; 84443; 84484; 85025; 85027; 85610; 85730; 86705; 86709; 86850; 86900; 86901; 87040; 87086; 87186; 87340; 87517; 87522; 93005; 93010; 99285-25; J0131